=== PATIENT | female | born 1985 | race Caucasian/White ===

== ENCOUNTER → 2017-09-02 18:55 | Outpatient (CLI) | payer OTHER, SELFPAY ==
[2017-09-08 14:37] LABS: HPV APTIMA, High Risk Negative (Negative)
== END ==
PROVIDERS: Visit Provider Obstetrics & Gynecology
DX: Z01.419 Encounter for gynecological examination (general) (routine) without abnormal findings (principal); Z12.4 Encounter for screening for malignant neoplasm of cervix
CPT/HCPCS: 88175; G0145

== ENCOUNTER → 2017-09-08 10:40 | Outpatient (CLI) | payer OTHER, SELFPAY ==
[2017-09-08 14:32] LABS: Anion Gap 4 (5-15); BUN 11 mg/dL (7-18); BUN/Creat Ratio 14.9 RATIO (10-20); Calcium,Total 8.5 mg/dL (8.5-10.1); Chloride 107 mmol/L (98-107); Creatinine, Serum 0.74 mg/dL (0.55-1.02); EST Glomerular Filtration Rate 97 mL/min (>60); Est Glom Filt Rate - Afr Amer 118 mL/min (>60); Glucose 83 mg/dL (74-106); Potassium 3.9 mmol/L (3.5-5.1); Sodium Level 138 mmol/L (136-145)
[2017-09-08 14:36] LABS: Hemoglobin A1c 5.6 % (4.2-6.3)
== END ==
PROVIDERS: Visit Provider Obstetrics & Gynecology
DX: I10 Essential (primary) hypertension (principal); Z68.32 Body mass index [BMI] 32.0-32.9, adult
CPT/HCPCS: 36415; 80048; 83036; 84443

== ENCOUNTER → 2017-10-27 11:28 | Outpatient (CLI) | payer OTHER, SELFPAY ==
[2017-10-27 12:43] LABS: Absolute Lymphocyte Count 2.79 X10^3/ul (0.83-4.51); Absolute Neutrophil Count 6.4 X10^3/uL (2.0-7.7); Basophil# 0.01 X10^3/uL; Basophil% 0.1 % (0-1); Eosinophil# 0.12 X10^3/uL; Eosinophils% 1.2 % (0-5); Hematocrit 35.9 % (37-47); Hemoglobin 10.8 g/dl (12.0-15.0); Lymphocyte # 2.79 X10^3/ul (4.0); Lymphocyte % 28.2 % (19-41); Mean Corp Hgb Conc 30.1 g/gl (32-36); Mean Corpuscular Hgb 22.6 pg (27.0-32.0); Mean Corpuscular Volume 75.3 fL (81-99); Mean Platelet Vol. 10.9 fl (6.2-12.0); Monocyte% 6.1 % (0-10); Neutrophil # 6.37 X10^3/uL (2.7-7.7); Neutrophil % 64.3 % (47-70); Platelet Count 373 K/mm3 (150-450); RBC Distribution Width SD 41.1 fl (35.1-43.9); Red Blood Count 4.77 M/mm3 (4.2-5.4); White Blood Count 9.9 K/mm3 (4.4-11.0)
[2017-10-27 13:02] LABS: AST(SGOT) 13 U/L (15-37); Alanine Aminotransfer ALT/SGPT 17 U/L (13-56); Albumin, Serum 3.8 g/dL (3.2-5.0); Alkaline Phosphatase 80 U/L (45-117); Globulin 4.1 g/dL (2.2-4.2); Protein, Total 7.9 g/dL (6.4-8.2)
[2017-10-27 13:16] LABS: POSITIVE COUNT NO; POSITIVE DIFFERENTIAL NO; POSITIVE MORPHOLOGY NO
== END ==
PROVIDERS: Visit Provider Psychiatry & Neurology Neurology
DX: G40.901 Epilepsy, unspecified, not intractable, with status epilepticus (principal)
CPT/HCPCS: 36415; 80076; 85025

== ENCOUNTER → 2019-11-04 07:13 | Outpatient (CLI) | payer BC, SELFPAY ==
[2019-11-04 08:06] LABS: Absolute Lymphocyte Count 2.18 X10^3/uL (0.83-4.51); Absolute Neutrophil Count 3.3 X10^3/uL (2.0-7.7); Basophil# 0.05 X10^3/uL; Basophil% 0.8 % (0-1); Eosinophil# 0.11 X10^3/uL; Eosinophils% 1.8 % (0-5); Hematocrit 36.4 % (37-47); Hemoglobin 10.3 g/dL (12.0-15.0); Lymphocyte # 2.18 X10^3/ul (4.0); Lymphocyte % 35.3 % (19-41); Mean Corp Hgb Conc 28.3 g/dL (32-36); Mean Corpuscular Hgb 21.5 pg (27.0-32.0); Mean Platelet Vol. 11.8 fl (6.2-12.0); Monocyte# 0.52 X10^3/uL; Monocyte% 8.4 % (0-10); NRBC Flagged by Analyzer 0 % (0-5); Neutrophil % 53.4 % (47-70); Platelet Count 388 K/mm3 (150-450); RBC Distribution Width SD 43.8 fl (35.1-43.9); Red Blood Count 4.79 M/mm3 (4.2-5.4); White Blood Count 6.2 K/mm3 (4.4-11.0)
[2019-11-04 08:44] LABS: AST(SGOT) 16 U/L (15-37); Alanine Aminotransfer ALT/SGPT 22 U/L (13-56); Albumin, Serum 3.5 g/dL (3.2-5.0); Alkaline Phosphatase 79 U/L (45-117); Globulin 4.3 g/dL (2.2-4.2); Iron 15 ug/dL (50-170); Iron Binding Capacity,Total 478 ug/dL (250-450); Protein, Total 7.8 g/dL (6.4-8.2)
== END ==
PROVIDERS: Referring Provider Psychiatry & Neurology Neurology; Visit Provider Psychiatry & Neurology Neurology
DX: D64.9 Anemia, unspecified (principal); G40.901 Epilepsy, unspecified, not intractable, with status epilepticus; G40.909 Epilepsy, unspecified, not intractable, without status epilepticus; Z68.34 Body mass index [BMI] 34.0-34.9, adult
CPT/HCPCS: 36415; 80076; 83540; 83550; 85025

== ENCOUNTER → 2020-09-19 15:28 | Outpatient (CLI) | payer SELFPAY ==
[2020-09-22 04:09] LABS: Chlamydia By Nucleic Acid AMP Negative (Negative)
[2020-09-22 05:09] LABS: Gonococcus By Nucleic Acid AMP Negative (Negative)
[2020-09-25 20:57] LABS: HPV APTIMA, High Risk Negative (Negative)
== END ==
PROVIDERS: Visit Provider Obstetrics & Gynecology
DX: Z12.4 Encounter for screening for malignant neoplasm of cervix (principal); Z11.3 Encounter for screening for infections with a predominantly sexual mode of transmission
CPT/HCPCS: 87491; 87591; 87624; 88175; G0145

== ENCOUNTER → 2020-10-03 16:55 | Outpatient (CLI) | payer OTHER, SELFPAY ==
[2020-10-03 17:34] LABS: Absolute Lymphocyte Count 2.98 X10^3/uL (0.83-4.51); Absolute Neutrophil Count 7.7 X10^3/uL (2.0-7.7); Basophil# 0.05 X10^3/uL; Basophil% 0.4 % (0-1); Eosinophil# 0.08 X10^3/uL; Eosinophils% 0.7 % (0-5); Hematocrit 39.1 % (37-47); Hemoglobin 11.6 g/dL (12.0-15.0); Lymphocyte # 2.98 X10^3/ul (4.0); Lymphocyte % 25.4 % (19-41); Mean Corp Hgb Conc 29.7 g/dL (32-36); Mean Corpuscular Hgb 23.2 pg (27.0-32.0); Mean Platelet Vol. 12.1 fl (6.2-12.0); Monocyte# 0.87 X10^3/uL; Monocyte% 7.4 % (0-10); NRBC Flagged by Analyzer 0 % (0-5); Neutrophil # 7.72 X10^3/uL (2.7-7.7); Neutrophil % 65.8 % (47-70); Platelet Count 375 K/mm3 (150-450); RBC Distribution Width SD 42.4 fl (35.1-43.9); Red Blood Count 5.01 M/mm3 (4.2-5.4); White Blood Count 11.7 K/mm3 (4.4-11.0)
[2020-10-03 17:46] LABS: Protein, Urine (Random) 18.3 mg/dL (<11.9); Protein:Creat Ratio 65 mg/g CRE (0-200)
[2020-10-03 18:31] LABS: ALB/GLOB Ratio 0.7 RATIO (0.9-2.4); AST(SGOT) 8 U/L (15-37); Alanine Aminotransfer ALT/SGPT 19 U/L (13-56); Albumin, Serum 3.5 g/dL (3.2-5.0); Alkaline Phosphatase 74 U/L (45-117); Anion Gap 4 (5-15); BUN 10 mg/dL (7-18); BUN/Creat Ratio 13.3 RATIO (10-20); Calcium,Total 9.1 mg/dL (8.5-10.1); Chloride 104 mmol/L (98-107); Creatinine, Serum 0.75 mg/dL (0.55-1.02); EST Glomerular Filtration Rate 93 mL/min (>60); Est Glom Filt Rate - Afr Amer 113 mL/min (>60); Globulin 4.7 g/dL (2.2-4.2); Glucose 87 mg/dL (74-106); LDH 171 U/L (84-246); Potassium 3.8 mmol/L (3.5-5.1); Protein, Total 8.2 g/dL (6.4-8.2); Sodium Level 134 mmol/L (136-145)
[2020-10-04 08:50] LABS: HIV - WCH Non-Reactive (Nonreactive); Hepatitis B Surface Antigen Non-Reactive (Nonreactive); Hepatitis C Antibody Non-Reactive (Nonreactive); Rubella IgG Reactive (Nonreactive); Syphilis Antibodies Non-reactive
[2020-10-06 21:05] LABS: Lamotrigine (Lamictal) Level < 1.0 ug/mL (2.0-20.0)
== END ==
LOC: WOBLAB 17:01
PROVIDERS: Visit Provider Obstetrics & Gynecology
DX: Z34.81 Encounter for supervision of other normal pregnancy, first trimester (principal)
CPT/HCPCS: 36415; 80053; 82542; 82570; 83615; 84156; 85025; 86703; 86762; 86780; 86803; 87086; 87088; 87340

== ENCOUNTER → 2021-01-25 15:13 | Outpatient (CLI) | payer OTHER, SELFPAY ==
[2021-01-25 17:22] LABS: Mean Corp Hgb Conc 31.3 g/dL (32-36); Mean Corpuscular Hgb 24.5 pg (27.0-32.0); Mean Corpuscular Volume 78.4 fL (81-99); Mean Platelet Vol. 12.8 fl (6.2-12.0); Platelet Count 289 K/mm3 (150-450); RBC Distribution Width CV 14.8 % (11.6-14.6); RBC Distribution Width SD 42.2 fl (35.1-43.9); Red Blood Count 4.08 M/mm3 (4.2-5.4); White Blood Count 11.2 K/mm3 (4.4-11.0)
[2021-01-25 17:40] LABS: Glucose Challenge Gest 1H 50g 91 mg/dL (70-140)
== END ==
LOC: WOBLAB 15:14
PROVIDERS: Visit Provider Obstetrics & Gynecology
DX: Z34.82 Encounter for supervision of other normal pregnancy, second trimester (principal)
CPT/HCPCS: 36415; 82950; 85027

== ENCOUNTER → 2021-02-16 14:05 | Outpatient (CLI) | payer OTHER, SELFPAY ==
[2021-02-16 14:09] LABS: Bacteria 0 SEEN /hpf (None Seen); Mucous, Urine 0 SEEN /hpf (<or=2+); Red Blood Cells-Urine 0 SEEN /hpf (0-5)
[2021-02-16 14:53] LABS: Hematocrit 35.3 % (37-47); Hemoglobin 11.2 g/dL (12.0-15.0); Mean Corp Hgb Conc 31.7 g/dL (32-36); Mean Corpuscular Hgb 24.9 pg (27.0-32.0); Mean Corpuscular Volume 78.6 fL (81-99); Mean Platelet Vol. 12.6 fl (6.2-12.0); Platelet Count 252 K/mm3 (150-450); RBC Distribution Width CV 16.1 % (11.6-14.6); RBC Distribution Width SD 44.5 fl (35.1-43.9); Red Blood Count 4.49 M/mm3 (4.2-5.4); White Blood Count 10.9 K/mm3 (4.4-11.0)
[2021-02-16 15:02] LABS: Color, Urine Yellow (Yellow); Glucose, Dipstick Normal (Normal); Ketone-Dipstick 5 mg/dl (Negative); Leukocyte Esterase-Dipstick 25 /ul (Negative); Nitrite-Dipstick Negative (Negative); Occult Blood-Urine Negative /ul (Negative); Protein, Urine (Random) 10.1 mg/dL (<11.9); Protein-Dipstick Negative (Negative); Protein:Creat Ratio 227 mg/g CRE (0-200); Urine Bilirubin Dipstick Negative (Negative); Urine Clarity Sl. Cloudy (Clear); Urine Urobilinogen Normal (Normal)
[2021-02-16 15:13] LABS: BUN 8 mg/dL (7-18); Creatinine, Serum 0.68 mg/dL (0.55-1.02); EST Glomerular Filtration Rate 105 mL/min (>60); Glucose 115 mg/dL (74-106)
[2021-02-16 15:14] LABS: ALB/GLOB Ratio 0.6 RATIO (0.9-2.4); AST(SGOT) 19 U/L (15-37); Alanine Aminotransfer ALT/SGPT 24 U/L (13-56); Albumin, Serum 2.6 g/dL (3.2-5.0); Alkaline Phosphatase 141 U/L (45-117); Anion Gap 7 (5-15); BUN/Creat Ratio 11.8 RATIO (10-20); Calcium,Total 8.7 mg/dL (8.5-10.1); Chloride 104 mmol/L (98-107); Est Glom Filt Rate - Afr Amer 127 mL/min (>60); Globulin 4.7 g/dL (2.2-4.2); LDH 174 U/L (84-246); Potassium 3.5 mmol/L (3.5-5.1); Protein, Total 7.3 g/dL (6.4-8.2); Sodium Level 136 mmol/L (136-145)
[2021-02-16 15:15] LABS: Amorphous Sediment 1+ PHOS; Squamous Epithelial Cells - UA 0-5 SEEN /hpf (5-10); White Blood Cells 0-5 SEEN /hpf (0-5)
[2021-02-19 20:30] LABS: Lamotrigine (Lamictal) Level < 1.0 ug/mL (2.0-20.0)
== END ==
LOC: WOBLAB 14:06
PROVIDERS: Visit Provider Obstetrics & Gynecology
DX: G40.909 Epilepsy, unspecified, not intractable, without status epilepticus (principal); I10 Essential (primary) hypertension
CPT/HCPCS: 36415; 80053; 81001; 82542; 82570; 83615; 84156; 85027

== ENCOUNTER → 2021-03-06 14:50 | Outpatient (CLI) | payer OTHER, SELFPAY ==
[2021-03-10 14:27] LABS: Lamotrigine (Lamictal) Level 2.3 ug/mL (2.0-20.0)
== END ==
PROVIDERS: Referring Provider Psychiatry & Neurology Neurology; Visit Provider Psychiatry & Neurology Neurology
DX: G40.909 Epilepsy, unspecified, not intractable, without status epilepticus (principal)
CPT/HCPCS: 36415; 82542

== ENCOUNTER 2021-03-16 14:15 | Outpatient (CLI) | payer OTHER, SELFPAY ==
[2021-03-16] VITALS (37 sets, daily range): BP systolic 146–187; BP diastolic 86–108; PULSE 63–82; RESP 16–20; TEMP 36.3–36.8; O2SAT 97–100; BMI 36.0
[2021-03-16 15:21] LABS: Bacteria 0 SEEN /hpf (None Seen); Mucous, Urine 0 SEEN /hpf (<or=2+); Red Blood Cells-Urine 0 SEEN /hpf (0-5)
[2021-03-16 15:24] LABS: Hematocrit 36.1 % (37-47); Hemoglobin 11.4 g/dL (12.0-15.0); Mean Corp Hgb Conc 31.6 g/dL (32-36); Mean Corpuscular Hgb 26.3 pg (27.0-32.0); Mean Corpuscular Volume 83.4 fL (81-99); Mean Platelet Vol. 12.9 fl (6.2-12.0); POSITIVE MORPHOLOGY YES; Platelet Count 215 K/mm3 (150-450); RBC Distribution Width CV 17.7 % (11.6-14.6); Red Blood Count 4.33 M/mm3 (4.2-5.4); White Blood Count 12.3 K/mm3 (4.4-11.0)
[2021-03-16 15:25] LABS: Color, Urine Straw (Yellow); Glucose, Dipstick Normal (Normal); Ketone-Dipstick Negative (Negative); Leukocyte Esterase-Dipstick 25 /ul (Negative); Nitrite-Dipstick Negative (Negative); Occult Blood-Urine Negative /ul (Negative); Protein-Dipstick Negative (Negative); Urine Bilirubin Dipstick Negative (Negative); Urine Clarity Clear (Clear); Urine Urobilinogen Normal (Normal); Urine pH 6.5 (5.0 - 8.0)
[2021-03-16 15:32] LABS: Squamous Epithelial Cells - UA 0-5 SEEN /hpf (5-10); White Blood Cells 0-5 SEEN /hpf (0-5)
[2021-03-16 15:36] LABS: AST(SGOT) 20 U/L (15-37); Alanine Aminotransfer ALT/SGPT 25 U/L (13-56); Creatinine, Serum 0.71 mg/dL (0.55-1.02); EST Glomerular Filtration Rate 100 mL/min (>60); Est Glom Filt Rate - Afr Amer 121 mL/min (>60); Estimated Creatinine Clearance 87.47 ml/min; Uric Acid 4.5 mg/dL (2.6-6.0)
[2021-03-16] MEDS: Magnesium Sulfate 4gm/100mL 4 GM/100 ML IV.SOLN. IV (15:40)
[2021-03-16] MEDS: Labetalol (Prefilled) 20 MG/4 ML IV (15:40)
[2021-03-16 15:46] LABS: Protein, Urine (Random) 7.7 mg/dL (<11.9); Protein:Creat Ratio 370 mg/g CRE (0-200)
[2021-03-16 15:49] LABS: Scan Indicated on CBC? Y/N YES- FLAGS NOTED
[2021-03-16] MEDS: Labetalol (Prefilled) 20 MG/4 ML 40 MG IV (16:06)
[2021-03-16] MEDS: Lactated Ringers 1,000 ML 15 ML IV (16:15)
[2021-03-16] MEDS: Magnesium Sulfate 20 GM/500 ML BAG IV (16:30)
[2021-03-16] MEDS: Labetalol 200 MG Tablet 400 MG PO (17:03)
[2021-03-16] MEDS: Betamethasone/Betamethasone 30 MG/5 ML Vial 12 MG IM (17:10)
--- NOTE | 2021-03-16 17:20 | HP.PCM.OB_ITS ---
History and Physical Date of Admission: 03/16/21 Chief complaint: Severe HARSH, IUGR History of present illness: 35-year-old G3, P1 at 32 weeks and 1 day with KATIE: 05/10/2021 by 6 wk u/s arrived to office with severe range blood pressures. Patient known poorly controlled chronic hypertensive on medication. Patient asymptomatic. Denies headache, visual changes, chest pain, shortness of breath, nausea vomiting, right upper quadrant pain. Patient states good movement. is complicated by poorly controlled chronic hypertension on medications, epilepsy, Covid + 01/10/2021, IUGR EFW 1403g 3rd percentile with cord Dopplers greater than the 95th percentile, AMA Obstetric history: G1: 34-week primary section severe HARSH male 09/2014 G2: SAB 05/30/2015 G3: Current Past medical history: Chronic hypertension, epilepsy Medications: Procardia 60 mg daily, labetalol 200 mg twice daily, aspirin, Lamictal Past surgical history: section, diagnostic laparoscopy Allergies: No known drug allergies Social history: Denies smoking, alcohol use, drug use Family history: Denies history DVT or PE Review of systems: Besides above pertinent positives a full review of systems was performed and found to be negative Physical exam: Vitals: Blood pressure 187/97 pulse 69 respiratory rate 16 SpO2 99% on room air General: Normal-appearing no acute distress HEENT: Normocephalic/atraumatic no cervical of adenopathy Cardiac/respiratory: Nonlabored breathing, no use of accessory muscles Abdomen: Soft, nontender, gravid negative right upper quadrant pain Extremities: No peripheral edema normal peripheral pulses. Negative clonus, DTRs +2 Psych: Normal affect normal demeanor nonpressured speech Labs: White blood cell count 12.3, hemoglobin 11.4 hematocrit 36.1% platelets 215. Creatinine 0.71. AST 20 ALT 25. Urine protein creatinine ratio 0.3 Assessment and plan: 35-year-old G3, P1 at 32 weeks and 1 day with severe HARSH/poorly controlled chronic hypertension. Arrived to labor and delivery, HELLP labs stable, patient asymptomatic. Magnesium 6 g bolus to run at 2 g an hour given. Labetalol 20 mg IV given, labetalol 40 mg IV given. Blood pressure stabilized after labetalol 40 mg IV, started on labetalol for 100 mg p.o. 3 times daily. We will continue to treat blood pressures as needed. Celestone 12 mg IM given. Patient also with office ultrasound today growth ultrasound, EFW 1403g 3% and cord Dopplers greater than the 95th percentile. Extended monitoring stable with no decelerations. Based on severe HARSH/poorly controlled chronic hypertension and IUGR with elevated cord Dopplers will need continuous monitoring and NICU. Reviewed case with Dr. [facility] who agreed to transport to [facility]. Transport team called, to transport within 30 minutes.
== END 2021-03-16 18:02 | disposition home or self-care (01) ==
LOC: WPOUT 14:24 → WP 14:24
PROVIDERS: Visit Provider Obstetrics & Gynecology
DX: O10.913 Unspecified pre-existing hypertension complicating pregnancy, third trimester (principal); O99.353 Diseases of the nervous system complicating pregnancy, third trimester; G40.909 Epilepsy, unspecified, not intractable, without status epilepticus; O36.5930 Maternal care for other known or suspected poor fetal growth, third trimester, not applicable or unspecified; Z3A.32 32 weeks gestation of pregnancy; Z86.16 Personal history of COVID-19
CPT/HCPCS: 96360; 36415; 59025; 59050; 81001; 82565; 82570; 84156; 84450; 84460; 84550; 85027; 96372; 99218; J7120; G0378; J0702

== ENCOUNTER 2023-04-06 18:25 | Emergency (ER) | payer OTHER, SELFPAY ==
[2023-04-06 18:26] VITALS: BP 151/90; PULSE 75; RESP 18; TEMP 35.7; O2SAT 100; BMI 32.8
--- NOTE | 2023-04-06 18:33 | RAD_ITS ---
EXAM: XR LEFT WRIST COMPLETE, 3 OR MORE VIEWS CLINICAL INDICATION: trauma TECHNIQUE: Frontal, lateral and oblique views of the left wrist. COMPARISON: No relevant prior studies available. FINDINGS: BONES/JOINTS: Unremarkable. No acute fracture. No subluxation. Normal alignment. Preservation of the joint space. No sclerotic or destructive changes observed. SOFT TISSUES: Unremarkable. No soft tissue swelling or gas. No radiopaque foreign body. RAD/Wrist min 3 Views IMPRESSION: Negative left wrist x-rays. Electronically Signed: Kael Abad MD at 19:06 EDT ,
--- NOTE | 2023-04-06 18:35 | EX.ED.UPPERE ---
HPI History of Present Illness Chief Complaint: Upper Extremity Injury Narrative Narrative: Patient fell at bowling landing on her left wrist. No head injury neck pain or any other injury. She is presenting with distal radius pain [facility] Medical History (Updated 04/06/23 @ 18:[address] Terrell Viera MD) Epilepsy Home Medications lamotrigine 150 mg tablet (Lamictal) 150 mg PO BID 03/16/21 [History Last Taken 03/16/21 04:30] Allergy/AdvReac Type Severity Reaction Status Date / Time No Known Allergies Allergy Verified 04/06/23 18:26 Social History Smoking Status: Never smoker ROS ROS ED ROS Narrative Musculoskeletal: Wrist pain Skin: No abrasions or lacerations Neurological: No weakness or paresthesias Hematologic: No easy bleeding or easy bruising EXAM Physical Exam Narrative Exam Narrative: Physical exam General: Patient does not appear in significant distress . Head: Normocephalic, Atraumatic Neck: No C-spine tenderness Cardiovascular: Normal distal pulses Back: Nontender, Normal Inspection. Extremities: Denies distal radius tenderness there is no deformity. Neurovascularly intact. No snuffbox tenderness or any other pain. Skin: No abrasions, no lacerations Neurological: Normal strength and sensation Const Vital Signs: 04/06/23 18:26 Temperature 96.2 F L Temperature Source Temporal Pulse Rate 75 Respiratory Rate 18 Blood Pressure 151/90 H Blood Pressure Mean 110 Pulse Ox 100 Oxygen Delivery Method Room Air MDM MDM MDM Narrative Medical decision making narrative: Wrist x-ray interpreted by me as normal. There is no evidence of fractures. Patient is relatively comfortable. I will give her a splint for comfort otherwise I will discharge in stable condition she can take NSAIDs [id number]. Discharge Plan Triage Chief Complaint: Upper Extremity Injury ED Provider: Terrell Viera Dx/Rx/DC Orders Clinical Impression: Contusion, wrist, Fall Instructions: ED Contusion, Upper Extremity Prescriptions: No Action lamotrigine [Lamictal] 150 mg Tablet 150 mg PO BID Primary Care Provider: Care Physician,No Primary Referrals: Care Physician,No Primary [Primary Care Provider] - 3-5 Days Disposition Disposition: Home, Self Care
== END 2023-04-06 18:57 | disposition home or self-care (01) ==
LOC: ED 18:52
PROVIDERS: Emergency Provider Emergency Medicine; Visit Provider Emergency Medicine
DX: S60.212A Contusion of left wrist, initial encounter (principal); G40.909 Epilepsy, unspecified, not intractable, without status epilepticus; W19.XXXA Unspecified fall, initial encounter; Y93.54 Activity, bowling; Z79.899 Other long term (current) drug therapy
CPT/HCPCS: 73110; 99283

== ENCOUNTER 2023-06-27 09:35 | Emergency (ER) | payer OTHER, SELFPAY ==
[2023-06-27 09:36] VITALS: BP 145/99; PULSE 81; RESP 16; TEMP 36.3; O2SAT 99; BMI 33.3
--- NOTE | 2023-06-27 10:06 | US_ITS ---
INDICATION: PAIN EXAMINATION: Ultrasound US Abdomen Limited (quadrant) TECHNIQUE: Hurley scale and color doppler imaging was performed of the right upper quadrant. COMPARISON: No relevant prior comparison study available FINDINGS: LIVER: There is normal echotexture. The liver is normal in size measuring about 16.2 cm in length. The portal vein is patent with normal hepatopedal flow. No focal hepatic lesion. There is no free fluid. GALLBLADDER AND BILIARY TREE: Contracted gallbladder without evidence of gallstones. Normal gallbladder wall measuring 2 mm. The proximal common bile duct measures 3 mm, which is within normal limits for the patient''s age. Sonographic Ambriz''s sign: Negative. PANCREAS: The pancreas is obscured by bowel gas and not visualized. RIGHT KIDNEY: The right kidney measures 11 cm in length. No evidence of hydronephrosis. US/Gallbladder IMPRESSION: No evidence of gallstones. Electronically Signed: Elver Flor MD at 11:41 EST ,
--- NOTE | 2023-06-27 10:11 | EX.ED.DYSGE1 ---
HPI History of Present Illness Chief Complaint: Nausea/Vomiting/Diarrhea Informant: patient Narrative Narrative: 37-year-old female presenting to the emergency department with vomiting diarrhea. Patient states that on Friday in the afternoon she developed an ache in the center of her chest that lasted 3 to 4 hours and then resolved. On morning (Friday) she had fever up to 102. She notes an associated cough and developed nausea and vomiting as well as diarrhea. Last episode of diarrhea was this morning. She states she does not look at her stool so she cannot describe it for me. Last episode of vomiting was yesterday morning. She notes persistent nausea. She also notes a right-sided abdominal ache. She tells me that everyone tells me is my gallbladder . Patient reports no primary care doctor. She states she has been on Lamictal for several years. Other than that she takes no medications. She is unsure of the doctor's name that prescribes her Lamictal. She denies any urinary symptoms. [facility] Medical History Epilepsy Home Medications lamotrigine 150 mg tablet (Lamictal) 150 mg PO BID 03/16/21 [History Last Taken 03/16/21 04:30] ondansetron 4 mg disintegrating tablet 4 mg PO Q6H PRN PRN Nausea #15 tabs 06/27/23 [Rx Last Taken Unknown] Allergy/AdvReac Type Severity Reaction Status Date / Time No Known Allergies Allergy Verified 06/27/23 09:36 Social History Smoking Status: Never smoker ROS ROS ED Constitutional Constitutional ED: Reports chills and fever(s); Denies weight loss Eyes Eyes: Denies change in vision or diplopia ENT ENT ED: Denies ear pain, rhinorrhea or sore throat Cardiovascular Cardiovascular: Denies chest pain, orthopnea, palpitations or racing heartbeat Respiratory/Chest Respiratory/Chest: Reports cough; Denies dyspnea or orthopnea Gastrointestinal Gastrointestinal: Reports abdominal pain, diarrhea, nausea and vomiting Genitourinary Genitourinary ED: Denies dysuria, hematuria or urinary frequency Musculoskeletal Musculoskeletal: Denies arthralgias or myalgias Integumentary Denies abscess or rash Neurologic Neurologic: Denies headache(s) or weakness Psychiatric Psychiatric: Denies anxiety, depression, suicidal ideation or suicidal thoughts Endocrine Endocrinology: Denies polydipsia, polyphagia or polyuria Allergic/Immunologic Allergic/Immunologic ED: Denies mouth swelling, tongue swelling or urticaria EXAM Physical Exam Const Vital Signs: 06/27/23 09:36 06/27/23 12:00 06/27/23 12:00 Temperature 97.3 F L Temperature Source Temporal Pulse Rate 81 74 74 Respiratory Rate 16 16 16 Blood Pressure 145/99 H 145/87 H 145/87 H Blood Pressure Mean 114 106 106 Pulse Ox 99 95 95 Oxygen Delivery Method Room Air Room Air Positive well nourished, well developed and obese General Appearance ED: well developed Nutritional Appearance: obese HEENT Reports normocephalic, head/scalp atraumatic and moist mucous membranes Eyes PERRL and EOMs intact bilaterally Neck no lymphadenopathy, supple and no JVD Resp normal respiratory effort and clear to auscultation bilaterally Cardio regular rate, regular rhythm and no murmurs GI Auscultation: normoactive bowel sounds Palpation: soft and tender RUQ; Negative for guarding or rebound tenderness present Back/Spine no CVA tenderness and normal ROM Extremity normal to inspection General Extremety ED: Negative for edema General Extremity: Negative for edema Neuro oriented x3 and CN's II-XII intact bilaterally Sensorium / Orientation: alert Motor Exam: strength 5/5 throughout Psych mental status grossly normal Mood & Affect: Negative for depressed or tearful Skin no rashes or lesions noted and no wounds MDM MDM MDM Narrative Medical decision making narrative: I attempted to perform a bedside ultrasound of the gallbladder. Patient unable to take a deep breath and I am unable to get a confident examination of the gallbladder with the bedside ultrasound. Basic blood work showed a hemoglobin 11.6 white count was 7. Normal liver enzymes. Lipase 22. test is negative. Urinalysis with no infection. Formal gallbladder ultrasound was negative. Clinically I think the patient is a viral gastroenteritis. Would recommend supportive care follow-up as needed return if worsening History & Record Review Discussion w/independent historian: Patient and Family Lab Data Attestation: I reviewed the patient's lab results. Labs: Laboratory Results - last 24 hr 06/27/23 06/27/23 10:20 11:29 WBC 7.0 RBC 4.81 Hgb 11.6 L Hct 36.8 L MCV 76.5 L MCH 24.1 L MCHC 31.5 L RDW Std Deviation 39.2 RDW Coeff of [place] 14.1 Plt Count 344 MPV 10.6 Immature Gran % (Auto) 0.100 Neut % (Auto) 61.4 Lymph % (Auto) 30.5 [place] % (Auto) 6.3 Eos % (Auto) 1.3 Baso % (Auto) 0.4 Absolute Neuts (auto) 4.3 Absolute Lymphs (auto) 2.14 Nucleated RBC % 0 Sodium 139 Potassium 3.5 Chloride 105 Carbon Dioxide 28.0 Anion Gap 6 BUN 7 Creatinine 0.76 Estim Creat Clear Calc 80.16 Est GFR (MDRD) Af Amer 109 Est GFR (MDRD) Non-Af 90 BUN/Creatinine Ratio 9.2 L Glucose 89 Calcium 8.6 Total Bilirubin 0.40 Direct Bilirubin 0.08 AST 15 ALT 19 Alkaline Phosphatase 80 Total Protein 8.5 H Albumin 3.8 Globulin 4.7 H Lipase 22 Serum , Qual NEGATIVE Urine Color Straw Urine Clarity Clear Urine pH 7.0 Ur Specific [place] 1.005 Urine Protein Negative Urine Glucose (UA) Normal Urine Ketones 15 H Urine Occult Blood Negative Urine Nitrite Negative Urine Bilirubin Negative Urine Urobilinogen Normal Ur Leukocyte Esterase 25 H Urine RBC 0 SEEN Urine WBC 0 SEEN Ur Squamous Epith Cells 0-5 SEEN Urine Bacteria 0 SEEN Urine Mucus 0 SEEN Radiography Diagnostic Testing: Clinical Impression(s) from Imaging Studies Gallbladder Ultrasound 06/27/23 10:06 IMPRESSION: No evidence of gallstones. Electronically Signed: Elver Flor MD at 11:41 EST , Discharge Plan Triage Chief Complaint: Nausea/Vomiting/Diarrhea ED Provider: Bennie Orta Dx/Rx/DC Orders Clinical Impression: Gastroenteritis, Abdominal pain Instructions: ED Gastroenteritis, Viral (Adult) Prescriptions: New ondansetron [ondansetron] 4 mg tablet,disintegrating 4 mg PO Q6H PRN PRN (Reason: Nausea) Qty: 15 0RF No Action lamotrigine [Lamictal] 150 mg Tablet 150 mg PO BID Primary Care Provider: Care Physician,No Primary Referrals: Care Physician,No Primary [Primary Care Provider] - Disposition Disposition: Home, Self Care Discharge Date/Time: 06/27/23 12:38
[2023-06-27 10:31] LABS: Absolute Lymphocyte Count 2.14 X10^3/uL (0.83-4.51); Absolute Neutrophil Count 4.3 X10^3/uL (2.0-7.7); Basophil# 0.03 X10^3/uL; Basophil% 0.4 % (0-1); Eosinophil# 0.09 X10^3/uL; Eosinophils% 1.3 % (0-5); Hematocrit 36.8 % (37-47); Hemoglobin 11.6 g/dL (12.0-15.0); Lymphocyte # 2.14 X10^3/ul (0.83-4.51); Lymphocyte % 30.5 % (19-41); Mean Corp Hgb Conc 31.5 g/dL (32-36); Mean Corpuscular Hgb 24.1 pg (27.0-32.0); Mean Corpuscular Volume 76.5 fL (81-99); Mean Platelet Vol. 10.6 fl (6.2-12.0); Monocyte# 0.44 X10^3/uL; Monocyte% 6.3 % (0-10); NRBC Flagged by Analyzer 0 % (0-5); Neutrophil % 61.4 % (47-70); Platelet Count 344 K/mm3 (150-450); RBC Distribution Width CV 14.1 % (11.6-14.6); RBC Distribution Width SD 39.2 fl (35.1-43.9); Red Blood Count 4.81 M/mm3 (4.2-5.4)
[2023-06-27] MEDS: 0.9% Normal Saline (1000mL) 1,000 ML 1000 ML IV (10:33)
[2023-06-27] MEDS: Ondansetron 4 MG/2 ML Vial IV (10:33)
[2023-06-27 10:34] LABS: Internal QC Validated? YES +Cl - CLEAR BKGD; Pregnancy, Serum, hCG Quali. NEGATIVE Negative; Record Kit Lot#, Serum Preg. HCG0000667200
--- OUTSIDE RECORDS SUMMARY | 2023-06-27 10:39 | XMS RPT_ITS | CCD ---
Author Name Unknown Address [address] [place] [address] Organization [facility] Care Team Providers Care Chief Wellness Officer Name Role Phone Unavailable Primary Care Provider Unavailabl e DARCIE ROBERTS Referring Unavailable Unavailable Primary Care Provider Unavailabl e Medications Current Medications Medication Drug Class(es) Dates Sig (Normalized) Sig (Original) acetaminophen 500 mg oral tablet (6 sources) Start: 04-01-2021 take 2 tablets by mouth three times daily as needed for pain acetaminophen (TYLENOL) 500 MG tablet Take 2 tablets by mouth 3 times daily as needed for Pain 60 tablet 1 04/01/2021 Active Completed/Discontinued Medications Medication Drug Class(es) Dates Sig (Normalized) Sig (Original) aspirin 81 mg chewable tablet (2 sources) Platelet Aggregation Inhibitor, Nonsteroidal Anti-inflammatory Drug Start: 03-16-2021 End: 03-29-2021 take 81 mg by mouth once daily 81 mg, Oral, DAILY, First dose on Fri03/16/21 at 2100 betamethasone 3 mg/ml / betamethasone acetate 3 mg/ml injectable suspension (2 sources) Corticosteroid Start: 03-27-2021 End: 03-28-2021 betamethasone acetate-betamethas one sodium phosphate (CELESTONE) injection 12 mg Problems Problem Classification Problem Date Documented Da te Episodic/Chronic Epilepsy; convulsions (1 source) Seizure disorder; Translations: [Epilepsy, unspecified, not intractable, without status epilepticus] Onset: 10-23-2010 10-23-2010 Chronic Hypertension complicating ; childbirth and the puerperium (2 sources) Pre-eclampsia added to pre-existing hypertension; Translations: [Pre-existing hypertension with pre-eclampsia, unspecified trimester] Onset: 03-16-2021 Chronic Other complications of ; puerperium affecting management of mother (2 sources) delivery - delivered; Translations: [Encounter for delivery without indication] Onset: 03-30-2021 Episodic Other injuries and conditions due to external causes (1 source) Unspecified injury of left wrist, hand and finger(s), initial encounter; Translations: [Injury of left hand, initial encounter] Onset: 11-26-2022 Episodic Other injuries and conditions due to external causes (1 source) Injury of left hand; Translations: [Unspecified injury of left wrist, hand and finger(s), initial encounter] Episodic Results Test Name Value Interpretation Reference Range Facil ity Vital Signs Date Time Vital Sign Value Performing Clinician Facility 11-26-2022 10:11-0400 Body temperature 97.81 [degF] Darcie Roberts ASSEMBLER SEMICONDUCTOR.NETWORK INTELLIGENCE ANALYST Work Phone: [facility] 11-26-2022 10:11-0400 Body weight 76.2 kg Darcie Roberts ASSEMBLER SEMICONDUCTOR.NETWORK INTELLIGENCE ANALYST Work Phone: [facility] 11-26-2022 10:11-0400 Diastolic blood pressure 82 mm[Hg] Darcie Roberts ASSEMBLER SEMICONDUCTOR.NETWORK INTELLIGENCE ANALYST Work Phone: [facility] 11-26-2022 10:11-0400 Heart rate 80 /min Darcie Roberts ASSEMBLER SEMICONDUCTOR.NETWORK INTELLIGENCE ANALYST Work Phone: [facility] 11-26-2022 10:11-0400 Respiratory rate 16 /min Darcie Roberts ASSEMBLER SEMICONDUCTOR.NETWORK INTELLIGENCE ANALYST Work Phone: [facility] 11-26-2022 10:11-0400 SaO2% (BldA) [Mass fraction] 98 % Darcie Roberts ASSEMBLER SEMICONDUCTOR.NETWORK INTELLIGENCE ANALYST Work Phone: [facility] 11-26-2022 10:11-0400 Systolic blood pressure 126 mm[Hg] Darcie Roberts ASSEMBLER SEMICONDUCTOR.NETWORK INTELLIGENCE ANALYST Work Phone: [facility] 04-01-2021 16:00-0400 Body temperature 98.29 [degF] Licha Samson MD Work Phone: [facility] Work Phone: 04-01-2021 16:00-0400 Diastolic blood pressure 87 mm[Hg] Licha Samson MD Work Phone: [facility] Work Phone: 04-01-2021 16:00-0400 Heart rate 78 /min Licha Samson MD Work Phone: [facility] Work Phone: 04-01-2021 16:00-0400 Respiratory rate 16 /min Licha Samson MD Work Phone: [facility] Work Phone: 04-01-2021 16:00-0400 SaO2% (BldA) [Mass fraction] 98 % Licha Samson MD Work Phone: [facility] Work Phone: 04-01-2021 16:00-0400 Systolic blood pressure 148 mm[Hg] Licha Samson MD Work Phone: [facility] Work Phone: 03-19-2021 12:20-0400 Body mass index (BMI) [Ratio] 34.84 kg/m2 Licha Samson MD Work Phone: [facility] Work Phone: 03-19-2021 12:20-0400 Body weight 86.41 kg Licha Samson MD Work Phone: [facility] Work Phone: 03-19-2021 10:01-0400 Body height 157.5 cm Licha Samson MD Work Phone: [facility] Work Phone: Encounters Encounter Date Encounter Type Care Provider Facility Start: 11-26-2022 End: 11-26-2022 ambulatory [facility] Facility:[facility] Start: 11-26-2022 End: 11-26-2022 Office outpatient visit 15 minutes Darcie Roberts ASSEMBLER SEMICONDUCTOR.NETWORK INTELLIGENCE ANALYST Work Phone: [facility] Procedures Date Procedure Procedure Detail Performing Clinician Start: 03-30-2021 Blood count hemoglobin Norman Duvall DO Work Phone: Start: 03-29-2021 Comprehensive metabo lic panel Joana Leila Gilliam DO Work Phone: Start: 03-29-2021 nonstress test Harris antonietta Mi DO Work Phone: Start: 03-28-2021 Antibody screen Licha llamas MD Work Phone: Start: 03-28-2021 Blood typing serologic abo Joana Dee Lamari DO Work Phone: Start: 03-28-2021 Comprehensive metabo lic panel Joana Leila Gilliam DO Work Phone: Start: 03-27-2021 RADIOLOGY REPORT 3m Sca nning Start: 03-27-2021 End: 03-27-2021 biophysical profile w/o non-stress testing Veedanie Mi DO Work Phone: Start: 03-25-2021 Antibody screen Licha llamas MD Work Phone: Start: 03-25-2021 Blood typing serologic abo Vee Dee Taiwomartínla DO Work Phone: Start: 03-25-2021 Comprehensive metabo lic panel Vee Linkla DO Work Phone: Start: 03-23-2021 Comprehensive metabo lic panel Millie Bailey MD Work Phone: Start: 03-22-2021 Antibody screen Licha llamas MD Work Phone: Start: 03-22-2021 Blood typing serologic abo Joana Gusmanmike DO Work Phone: Start: 03-20-2021 Ecg routine ecg w/le ast 12 lds w/i&r Vee Mi DO Work Phone: Start: 03-19-2021 Comprehensive metabo lic panel Joanasaad Gusmanmike DO Work Phone: Start: 03-19-2021 Us preg uterus real time f/u trnsabdl per fetus Kush Louise DO Work Phone: Start: 03-19-2021 Antibody screen Licha llamas MD Work Phone: Start: 03-19-2021 Blood typing serologic abo Joana Gusmanmike DO Work Phone: Start: 03-17-2021 ADD ON LAB TEST Maryam Bhandari MD Work Phone: Start: 03-17-2021 Comprehensive metabo lic panel Maryam Bhandari MD Work Phone: Start: 03-16-2021 Culture bacterial quanttative colony count urine Maryam Bhandari MD Work Phone: Start: 03-16-2021 MISCELLANEOUS SENDOUT 1 Maryam Bhandari MD Work Phone: Start: 03-16-2021 Antibody screen Licha llamas MD Work Phone: Start: 03-16-2021 Blood typing serologic abo Maryam Bhandari MD Work Phone: Start: 10-03-2020 ABO, EXTERNAL RESULT Ne juan Meadows MD Start: 10-03-2020 HEPATITIS B, EXTERNA L RESULT Historical Provider Start: 10-03-2020 HEPATITIS C ANTIBODY , EXTERNAL RESULT Historical Provider Start: 10-03-2020 HIV, EXTERNAL RESULT Ne juan Meadows MD Start: 10-03-2020 RH FACTOR, EXTERNAL RESULT Historical Provider Start: 10-03-2020 RPR, EXTERNAL RESULT Hi juan Meadows MD Start: 10-03-2020 RUBELLA TITER, EXTER NAL RESULT Historical Provider Start: 09-19-2020 C. TRACHOMATIS, EXTE RNAL RESULT Historical Provider Start: 09-19-2020 N. GONORRHOEAE, EXTE RNAL RESULT Historical Provider Plan of Treatment Date Care Activity Detail Author Start: 03-23-2031 DTaP/Tdap/Td vaccine (2 - Td or Tdap) DTaP/Tdap/Td vaccine (2 - Td or Tdap) [facility] Work Phone: Start: 02-28-2023 Influenza vaccination INFLUENZA (Season Ended) [facility] Start: 06-30-2022 DEPRESSION ASSESSMENT DEPRESSION ASSESSMENT [facility] Start: 03-29-2022 Creatinine measurement Creatinine monitoring [facility] Work Phone: Start: 03-29-2022 Potassium monitoring Potassium monitoring [facility] Work Phone: Start: 02-28-2021 Influenza vaccination Flu vaccine (#1) [facility] Work Phone: Start: 09-11-2015 HPV TESTING HPV TESTING [facility] Start: 09-11-2015 Screening for malignant neoplasm of cervix [facility] Work Phone: Start: 2006 PAP TESTING PAP TESTING [facility] Start: 2006 Screening for malignant neoplasm of cervix Pap smear [facility] Work Phone: Start: 2004 Urine microalbumin profile DTAP,TDAP,TD (1 - Tdap) [facility] Start: 09-11-2003 HEPATITIS C SCREENING HEPATITIS C SCREENING [facility] Start: 09-11-2003 HIV SCREENING HIV SCREENING [facility] Start: 2000 HIV screening HIV screen [facility] Work Phone: Start: 1997 COVID-19 Vaccine (1) COVID-19 Vaccine (1) [facility] Work Phone: Start: 1986 Varicella vaccine (1 of 2 - 2-dose childhood series) Varicella vaccine (1 of 2 - 2-dose childhood series) [facility] Work Phone: Start: 03-13-1986 COVID-19 VACCINE (#1) COVID-19 VACCINE (#1) [facility] Start: 1985 HEPATITIS B (1 of 3 - 3-dose series) HEPATITIS B (1 of 3 - 3-dose series) [facility] Start: 1985 Hepatitis C screening Hepatitis C screen [facility] Work Phone: Oxygen therapy [[facility] [place] Set] Initiate Oxygen Therapy Protocol Respiratory Care Routine Daily until discontinued starting 03/29/2021 [facility] Work Phone: Immunizations Immunization Date Immunization Notes Care Provider Fa cility 03-23-2021 tetanus toxoid, reduced diphtheria toxoid, and acellular pertussis vaccine, adsorbed Licha Samson MD Work Phone: [facility] Work Phone: NEGATED: Highlighted row has not occurred!04-01-2021 measles, mumps and rubella virus vaccine Licha Samson MD Work Phone: [facility] Work Phone: NEGATED: Highlighted row has not occurred!04-01-2021 tetanus toxoid, reduced diphtheria toxoid, and acellular pertussis vaccine, adsorbed Licha Samson MD Work Phone: [facility] Work Phone: Payers Date Payer Category Payer Unknown [id number] 2022 Unknown HOSPITAL/MEDICAL GENERIC MEDICAL GENERIC [id number] 2022-Present [id number] [place] [address] Indemnity [id number] Social History Date Type Detail Facility Start: 10-23-2010 End: 03-29-2021 Tobacco smoking status NHIS Never smoker [facility] Work Phone: Start: 10-23-2010 End: 03-29-2021 Tobacco use and exposure Never used [facility] Start: 03-29-2021 Alcohol intake Lifetime non-d luis (finding) [facility] Work Phone: Start: 03-16-2021 History SDOH Alcohol Frequency 1 [facility] Work Phone: Start: 1985 Sex Assigned At Not on file S [facility] Work Phone: Exposure to SARS-CoV -2 (event) Not sure [facility] Start: 11-26-2022 Alcohol intake Current non-dr dinker of alcohol (finding) [facility] Progress note 11-26-2022 Note Date & Type Note Facility 11-26-2022 Note HNO ID: [id number] Author: Trina Mckoy RT(R) Service: Nuclear Medicine Author Type: Technologist Type: Progress Notes Filed: 11/26/2022 11:03 AM Note Text: Radiology Service Progress Note PATIENT NAME: Armando Rosario DATE OF SERVICE: November 26, 2022 TIME: 10:57 AM PATIENT IDENTITY VERIFICATION COMPLETED USING TWO (2) IDENTIFIERS: Name and Date of confirmed by patient verbally. FALL SCREENING: Has the patient had 2 falls in the last year or 1 fall with injury or currently using an Ambulatory Assistive Device (Walker, Cane, Wheelchair, Crutches, etc.)? No PATIENT GENDER DATA: Female. status: : No status: NO. PATIENT RELEVANT IMPLANT DATA REVIEWED: Not Applicable RADIOLOGY DEPARTMENT: General X-ray: Exam(s) Completed: Upper Extremity X-Ray(s): Hand, left PERIPHERAL IV DATA: Not applicable SIGNED BY: RT Jesenia(R) November 26, 2022 10:57 AM [facility] Progress note 11-26-2022 Note Date & Type Note Facility 11-26-2022 Note HNO ID: [id number] Author: Darcie Roberts APRN.NETWORK INTELLIGENCE ANALYST Service: ? Author Type: Nurse Practitioner Type: Progress Notes Filed: 11/26/2022 11:18 AM Note Text: Subjective HPI Nontoxic-appearing female presents urgent care chief plaint left hand pain. Duration of symptoms 2 days. Associated symptoms left hand pain and swelling some bruising. Does not recall a specific injury. 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 States she woke up 2 days ago and noticed some swelling and pain in her hand. Denies any specific injury. No numbness no tingling no decreased sensation no fractures or surgeries to the past. Denies any chance of . Is not breast-feeding. Past medical history prescription medication use allergies reviewed. .Patient presents with: Hand Pain: left x 2 days, swollen PAST MEDICAL HISTORY Diagnosis Date Epilepsy (HCC) Heart murmur PAST SURGICAL HISTORY Procedure Laterality Date NONE ALLERGIES Patient has no known allergies. MEDICATIONS LEVETIRACETAM (KEPPRA ORAL) Take 600 mg by mouth twice daily. OXCARBAZEPINE (TRILEPTAL ORAL) Take 1,000 mg by mouth twice daily. naproxen 500 mg ORAL tablet Take 1 tablet by mouth twice daily as needed. FOR PAIN. TAKE WITH FOOD. FAMILY HISTORY Problem Relation Age of Onset Diabetes Father Hypertension Mother Hypertension Father Hypertension Maternal Grandmother Hypertension Maternal Grandfather Diabetes Maternal Grandfather Cancer Maternal Grandfather of pancreatic cancer Diabetes Paternal Grandmother Social History Tobacco Use Smoking status: Never Smokeless tobacco: Never Substance Use Topics Alcohol use: No Drug use: No BP 126/82 Pulse 80 Temp 36.6 ?C (97.8 ?F) Resp 16 Wt 76.2 kg (168 lb) SpO2 98% Review of Systems Constitutional: Negative for chills, fever and malaise/fatigue. HENT: Negative for congestion, ear discharge, ear pain, sinus pain and sore throat. Eyes: Negative for blurred vision, pain, discharge and redness. Respiratory: Negative for cough, hemoptysis, sputum production, shortness of breath, wheezing and stridor. Cardiovascular: Negative for chest pain. Gastrointestinal: Negative for abdominal pain, diarrhea, nausea and vomiting. Musculoskeletal: Positive for joint pain. Negative for myalgias. Skin: Negative for itching and rash. Neurological: Negative for dizziness and headaches. Objective Physical Exam Constitutional: General: She is not in acute distress. Appearance: She is not diaphoretic. HENT: Head: Normocephalic. Eyes: Conjunctiva/sclera: Conjunctivae normal. Pupils: Pupils are equal, round, and reactive to light. Cardiovascular: Rate and Rhythm: Normal rate and regular rhythm. Heart sounds: Normal heart sounds. Pulmonary: Effort: Pulmonary effort is normal. No tachypnea, accessory muscle usage or respiratory distress. Breath sounds: Normal breath sounds. No stridor. No wheezing, rhonchi or rales. Musculoskeletal: Left elbow: No swelling. Normal range of motion. No tenderness. Left forearm: No swelling, tenderness or bony tenderness. Left wrist: No swelling, tenderness, bony tenderness or snuff box tenderness. Normal range of motion. Normal pulse. Left hand: Swelling, tenderness and bony tenderness present. No deformity. Normal range of motion. Normal strength. Normal capillary refill. Normal pulse. Hands: Cervical back: Normal range of motion. Comments: Swelling noted to highlighted area. Some ecchymosis. Tenderness to palpation to this area. Neurovascular intact. No deformities noted. No decreased range of motion. Good strength. No breaks in skin or remote redness. Skin: General: Skin is warm and dry. Neurological: Mental Status: She is alert and oriented to person, place, and time. ASSESSMENT/PLAN: 1. Injury of left hand, initial encounter - ICD9: 959.4, ICD10: S69.92XA - XR HAND GENERAL 3V PA/LAT/OBL LEFT IMPRESSION: No radiographic evidence of acute osseous injury No evidence of fracture. Suspicious of contusion. No evidence of bacterial infection. Treat conservatively at this time. Patient was educated on supportive therapies. Patient will follow up with primary care provider as needed. Patient was instructed to immediately proceed to emergency room for any new, worsening, or symptoms lasting longer than anticipated. The patient's clinical presentation is otherwise unremarkable at this time. Based on exam and clinical finding, the patient is stable for discharge. Plan of care was discussed with patient. Patient verbalizes understanding and agrees to plan of care. This note was generated using [employer] software. It may contain errors in wording, punctuation, or spelling. Darcie Roberts APRN.KRISTI [facility] History of Present illness Narrative 11-26-2022 Darcie Roberts APRN.KRISTI - 11/26/2022 10:17 AM EDT Note Date & Type Note Facility 11-26-2022 History of Presen t illness Narrative Images from the original note were not included. Subjective HPI Nontoxic-appearing female presents urgent care chief plaint left hand pain. Duration of symptoms 2 days. Associated symptoms left hand pain and swelling some bruising. Does not recall a specific injury. 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 States she woke up 2 days ago and noticed some swelling and pain in her hand. Denies any specific injury. No numbness no tingling no decreased sensation no fractures or surgeries to the past. Denies any chance of . Is not breast-feeding. Past medical history prescription medication use allergies reviewed. .Patient presents with: Hand Pain: left x 2 days, swollen PAST MEDICAL HISTORY Diagnosis Date Epilepsy (HCC) Heart murmur PAST SURGICAL HISTORY Procedure Laterality Date NONE ALLERGIES Patient has no known allergies. MEDICATIONS LEVETIRACETAM (KEPPRA ORAL) Take 600 mg by mouth twice daily. OXCARBAZEPINE (TRILEPTAL ORAL) Take 1,000 mg by mouth twice daily. naproxen 500 mg ORAL tablet Take 1 tablet by mouth twice daily as needed. FOR PAIN. TAKE WITH FOOD. FAMILY HISTORY Problem Relation Age of Onset Diabetes Father Hypertension Mother Hypertension Father Hypertension Maternal Grandmother Hypertension Maternal Grandfather Diabetes Maternal Grandfather Cancer Maternal Grandfather of pancreatic cancer Diabetes Paternal Grandmother Social History Tobacco Use Smoking status: Never Smokeless tobacco: Never Substance Use Topics Alcohol use: No Drug use: No BP 126/82 Pulse 80 Temp 36.6 C (97.8 F) Resp 16 Wt 76.2 kg (168 lb) SpO2 98% Review of Systems Constitutional: Negative for chills, fever and malaise/fatigue. HENT: Negative for congestion, ear discharge, ear pain, sinus pain and sore throat. Eyes: Negative for blurred vision, pain, discharge and redness. Respiratory: Negative for cough, hemoptysis, sputum production, shortness of breath, wheezing and stridor. Cardiovascular: Negative for chest pain. Gastrointestinal: Negative for abdominal pain, diarrhea, nausea and vomiting. Musculoskeletal: Positive for joint pain. Negative for myalgias. Skin: Negative for itching and rash. Neurological: Negative for dizziness and headaches. Objective Physical Exam Constitutional: General: She is not in acute distress. Appearance: She is not diaphoretic. HENT: Head: Normocephalic. Eyes: Conjunctiva/sclera: Conjunctivae normal. Pupils: Pupils are equal, round, and reactive to light. Cardiovascular: Rate and Rhythm: Normal rate and regular rhythm. Heart sounds: Normal heart sounds. Pulmonary: Effort: Pulmonary effort is normal. No tachypnea, accessory muscle usage or respiratory distress. Breath sounds: Normal breath sounds. No stridor. No wheezing, rhonchi or rales. Musculoskeletal: Left elbow: No swelling. Normal range of motion. No tenderness. Left forearm: No swelling, tenderness or bony tenderness. Left wrist: No swelling, tenderness, bony tenderness or snuff box tenderness. Normal range of motion. Normal pulse. Left hand: Swelling, tenderness and bony tenderness present. No deformity. Normal range of motion. Normal strength. Normal capillary refill. Normal pulse. Hands: Cervical back: Normal range of motion. Comments: Swelling noted to highlighted area. Some ecchymosis. Tenderness to palpation to this area. Neurovascular intact. No deformities noted. No decreased range of motion. Good strength. No breaks in skin or remote redness. Skin: General: Skin is warm and dry. Neurological: Mental Status: She is alert and oriented to person, place, and time. ASSESSMENT/PLAN: 1. Injury of left hand, initial encounter - ICD9: 959.4, ICD10: S69.92XA - XR HAND GENERAL 3V PA/LAT/OBL LEFT IMPRESSION: No radiographic evidence of acute osseous injury No evidence of fracture. Suspicious of contusion. No evidence of bacterial infection. Treat conservatively at this time. Patient was educated on supportive therapies. Patient will follow up with primary care provider as needed. Patient was instructed to immediately proceed to emergency room for any new, worsening, or symptoms lasting longer than anticipated. The patient's clinical presentation is otherwise unremarkable at this time. Based on exam and clinical finding, the patient is stable for discharge. Plan of care was discussed with patient. Patient verbalizes understanding and agrees to plan of care. This note was generated using [employer] software. It may contain errors in wording, punctuation, or spelling. Darcie Roberts APRN.KRISTI documented in this encounter [facility] Discharge summary note 04-01-2021 Note Date & Type Note Facility 04-01-2021 Note Department of Obstet rics and Gynecology [facility] Discharge Summary Admission on 03/16/2021 6:53 PM Armando Rosario is a 35 y.o. at 32w1d who presented as a transfer from [employer] [facility] for superimposed preeclampsia with severe features based on persistent severe range BP's requiring acute treatment with 20 and 40mg IV labetalol. Patient was started on magnesium sulfate for seizure prophylaxis and BMZ was given on 03/16-03/17. BP's on arrival were normotensive to mild range. Regimen was titrated to labetalol 200 TID and Procardia XL 90qd. Growth US 03/19 demonstrated FGR AC<1% with UAD mildly elevated. Patient was scheduled for RCD at 34w. Surgical Operations & Procedures: Date of delivery: 03/29/21 ([facility]) Procedure: Repeat with Right Tubal ligation (Left tube was absent) Anesthesia: Spinal anesthesia Delivery Complications:none EBL: 500 cc Pertinent Findings & Procedures: Information for the patient's : Troy Rosario [[id number]] female Weight: 3 lb 0.7 oz (1.38 kg) Apgars: Information for the patient's : Troy Rosario [[id number]] One Minute : 8 Five Minute : 9 Course: Uncomplicated Infant: Live female infant, NICU due to prematurity Blood Type/Rh: A POS Antibody Screen: Antibody Screen Date Value Ref Range Status 03/28/2021 NEG NA Final Rubella: No results found for: RUBELLAIGG Contraception: Tubal ligation : yes VTE Prophylaxis: Prophylactic Dosing until Discharge Meds: Armando Rosario Home Medication Instructions ABHAY:[id number] Printed on:04/01/21 1212 Medication Information acetaminophen (TYLENOL) 500 MG tablet Take 2 tablets by mouth 3 times daily as needed for Pain aspirin 81 MG chewable tablet Take 81 mg by mouth daily ibuprofen (ADVIL;MOTRIN) 600 MG tablet Take 1 tablet by mouth every 6 hours labetalol (NORMODYNE) 200 MG tablet Take 1 tablet by mouth every 8 hours lamoTRIgine (LAMICTAL) 150 MG tablet Take 150 mg by mouth 2 times daily NIFEdipine (PROCARDIA XL) 90 MG extended release tablet Take 1 tablet by mouth daily oxyCODONE (ROXICODONE) 5 MG immediate release tablet Take 1 tablet by mouth every 8 hours as needed for Pain for up to 5 days. Meds at Discharge: Medication List START taking these medications acetaminophen 500 MG tablet Commonly known as: TYLENOL Take 2 tablets by mouth 3 times daily as needed for Pain ibuprofen 600 MG tablet Commonly known as: ADVIL;MOTRIN Take 1 tablet by mouth every 6 hours oxyCODONE 5 MG immediate release tablet Commonly known as: ROXICODONE Take 1 tablet by mouth every 8 hours as needed for Pain for up to 5 days. CHANGE how you take these medications labetalol 200 MG tablet Commonly known as: NORMODYNE Take 1 tablet by mouth every 8 hours What changed: when to take this NIFEdipine 90 MG extended release tablet Commonly known as: PROCARDIA XL Take 1 tablet by mouth daily What changed: medication strength how much to take CONTINUE taking these medications aspirin 81 MG chewable tablet lamoTRIgine 150 MG tablet Commonly known as: LAMICTAL Where to Get Your Medications These medications were sent to [facility]/pharmacy #[id number] - [place], [place] - [address] - P [phone] - F [phone] [address], [place] [address] acetaminophen 500 MG tablet ibuprofen 600 MG tablet oxyCODONE 5 MG immediate release tablet You can get these medications from any pharmacy Bring a paper prescription for each of these medications labetalol 200 MG tablet NIFEdipine 90 MG extended release tablet Activity: Activity as tolerated Diet: Regular diet Follow-up Appointments: _x_ visit _x_ incision check _x_ blood pressure check _x_ depression screen Condition on discharge: Stable Discharge to: Home Discharge date: 04/01/21 Discharge Dx: Repeat section with R tubal ligation 2. SIPEwSF 3. FGR 4. Epilepsy Comments: Home care, Follow-up care and control were reviewed. Signs and symptoms of mastitis and Depression were reviewed. The patient is to notify her physician if any of these occur. [facility] Hospital course Narrative 04-01-2021 Millie Bailey MD - 04/01/2021 12:12 PM EDT Note Date & Type Note Facility 04-01-2021 Hospital course Narrative Images from the original note were not included. Department of Obstetrics and Gynecology [facility] Discharge Summary Admission on 03/16/2021 6:53 PM Armando Rosario is a 35 y.o. at 32w1d who presented as a transfer from [employer] for superimposed preeclampsia with severe features based on persistent severe range BP's requiring acute treatment with 20 and 40mg IV labetalol. Patient was started on magnesium sulfate for seizure prophylaxis and BMZ was given on 03/16-03/17. BP's on arrival were normotensive to mild range. Regimen was titrated to labetalol 200 TID and Procardia XL 90qd. Growth US 03/19 demonstrated FGR AC<1% with UAD mildly elevated. Patient was scheduled for RCD at 34w. Surgical Operations & Procedures: Date of delivery: 03/29/21 ([facility]) Procedure: Repeat with Right Tubal ligation (Left tube was absent) Anesthesia: Spinal anesthesia Delivery Complications:none EBL: 500 cc Pertinent Findings & Procedures: Information for the patient's : Troy Rosario [[id number]] female Weight: 3 lb 0.7 oz (1.38 kg) Apgars: Information for the patient's : Troy Rosario [[id number]] One Minute : 8 Five Minute : 9 Course: Uncomplicated Infant: Live female , NICU due to prematurity Blood Type/Rh: A POS Antibody Screen: Antibody Screen Date Value Ref Range Status 03/28/2021 NEG NA Final Rubella: No results found for: RUBELLAIGG Contraception: Tubal ligation : yes VTE Prophylaxis: Prophylactic Dosing until Discharge Meds: Armando Rosario Home Medication Instructions ABHAY:[id number] Printed on:04/01/21 1212 Medication Information acetaminophen (TYLENOL) 500 MG tablet Take 2 tablets by mouth 3 times daily as needed for Pain aspirin 81 MG chewable tablet Take 81 mg by mouth daily ibuprofen (ADVIL;MOTRIN) 600 MG tablet Take 1 tablet by mouth every 6 hours labetalol (NORMODYNE) 200 MG tablet Take 1 tablet by mouth every 8 hours lamoTRIgine (LAMICTAL) 150 MG tablet Take 150 mg by mouth 2 times daily NIFEdipine (PROCARDIA XL) 90 MG extended release tablet Take 1 tablet by mouth daily oxyCODONE (ROXICODONE) 5 MG immediate release tablet Take 1 tablet by mouth every 8 hours as needed for Pain for up to 5 days. Meds at Discharge: Medication List START taking these medications acetaminophen 500 MG tablet Commonly known as: TYLENOL Take 2 tablets by mouth 3 times daily as needed for Pain ibuprofen 600 MG tablet Commonly known as: ADVIL;MOTRIN Take 1 tablet by mouth every 6 hours oxyCODONE 5 MG immediate release tablet Commonly known as: ROXICODONE Take 1 tablet by mouth every 8 hours as needed for Pain for up to 5 days. CHANGE how you take these medications labetalol 200 MG tablet Commonly known as: NORMODYNE Take 1 tablet by mouth every 8 hours What changed: when to take this NIFEdipine 90 MG extended release tablet Commonly known as: PROCARDIA XL Take 1 tablet by mouth daily What changed: medication strength how much to take CONTINUE taking these medications aspirin 81 MG chewable tablet lamoTRIgine 150 MG tablet Commonly known as: LAMICTAL Where to Get Your Medications These medications were sent to [facility]/pharmacy #[id number] - [place], [place] - [address] - P [phone] - F [phone] [address], [place] [address] acetaminophen 500 MG tablet ibuprofen 600 MG tablet oxyCODONE 5 MG immediate release tablet You can get these medications from any pharmacy Bring a paper prescription for each of these medications labetalol 200 MG tablet NIFEdipine 90 MG extended release tablet Activity: Activity as tolerated Diet: Regular diet Follow-up Appointments: _x_ visit _x_ incision check _x_ blood pressure check _x_ depression screen Condition on discharge: Stable Discharge to: Home Discharge date: anticipate 03/31/21 if stable Discharge Dx: 1. Repeat section with R tubal ligation 2. SIPEwSF 3. FGR 4. Epilepsy Comments: Home care, Follow-up care and control were reviewed. Signs and symptoms of mastitis and Depression were reviewed. The patient is to notify her physician if any of these occur. documented in this encounter [facility] Work Phone: History of Present illness Narrative 04-01-2021 Lucila Champion DO - 04/01/2021 4:36 AM EDTLucila Champion DO - 03/31/2021 6:12 AM Trina Parks RN - 03/30/2021 9:37 PM Colleen Neumann RN - 03/30/2021 5:43 PM EDT Note Date & Type Note Facility 04-01-2021 History of Present illness Narrative Images from the original note were not included. POST OPERATIVE DAY # 3 Armando Rosario is a 35 y.o. who was seen & examined today. Her was complicated by: Patient Active Problem List Diagnosis Chronic hypertension with superimposed preeclampsia delivery delivered Today she is doing well without any chief complaint. Her lochia is light. She denies chest pain, shortness of breath, headache and lightheadedness. She is ambulating well. Flatus present. Bowel movement absent. Voiding spontaneously. She is tolerating solids. Pain is controlled yes. Vital Signs: Vitals: 03/31/21 1156 03/31/21 1608 03/31/21 2040 03/31/21 2355 BP: 131/79 135/88 125/79 132/89 Pulse: 66 75 76 96 Resp: 16 18 16 18 Temp: 97.8 F (36.6 C) 98.2 F (36.8 C) 98 F (36.7 C) 98 F (36.7 C) TempSrc: Temporal Temporal Temporal Temporal SpO2: 97% 97% 97% 95% Weight: Height: Urine Input & Output last 24hrs: No intake or output data in the 24 hours ending 04/01/21 0606 Physical Exam: General: no apparent distress, alert and cooperative Affect: appropriate Lungs: No increased work of breathing, good air exchange Abdomen: abdomen soft, non-distended, non-tender Fundus: non-tender, normal size, firm, below umbilicus Incision: Clean, dry, and intact Extremities: no calf tenderness, non edematous Labs: Lab Results Component Value Date WBC 15.3 (H) 03/29/2021 HGB 10.6 (L) 03/30/2021 HCT 34.2 (L) 03/29/2021 MCV 80.7 03/29/2021 PLT 199 03/29/2021 A POS Antibody Screen: Antibody Screen Date Value Ref Range Status 03/28/2021 NEG NA Final No results found for: RUBELLAIGG LABOR DELIVERY ??? SCD's ONLY (labor through ambulation) SCD's PLUS Prophylactic Anticoagulation until discharge SCD's PLUS Prophylactic Anticoagulation for 6 weeks SCD's PLUS Therapeutic Anticoagulation for 6 weeks Vaginal Delivery [] BMI ? 40 kg/m2 Delivery All patients Vaginal Delivery [] BMI ? 40 kg/m2 AND [] Antepartum hospitalization ? 72 hours within the past month Delivery 1 Major Risk Factor: [] BMI ? 35 kg/m2 [] Low Risk Thrombophilia [] PPH+RBCs, IR, or operation [] Infection+Antibiotics [x] Antepartum hospitalization ? 72 hours within the past month [] PMH: Sickle Cell, SLE, Cardiac Dz, Active IBD, Active Cancer, Nephrotic Syndrome OR 2 Minor Risk Factors: [] Multiple gestation [] Age > 40 [] PPH ? 1,000cc [] (+)FMH of VTE [] Smoker [] Preeclampsia [] BMI ? 40 kg/m2 AND [] Low Risk Thrombophilia OR ANY OF THE FOLLOWING: [] High Risk Thrombophilia without prior VTE [] Low Risk Thrombophilia with (+)FMH of VTE [] Any single prior VTE ANY OF THE FOLLOWING: [] Already on LMWH/UFH [] Multiple prior VTE [] High Risk Thrombophilia with prior VTE Low Risk Thrombophilia: FVL (heterozygous), Prothrombin (heterozygous), Protein C, Protein S High Risk Thrombophilia: FVL (homozygous), Prothrombin (homozygous), FVL+Prothrombin (heterozygous), Antithrombin III, APLS Assessment/Plan: Armando Rosario is a 35 y.o. POD # 3 s/p repeat LTCS and BTL Care - Doing well, VSS - Female infant - Both breast and bottle - Contraception: S/p BTL - Encourage ambulation and use of incentive spirometer - D/C hargrove catheter and saline lock IV on POD #1 - Postop Hb 10.6 - VTE Prophylaxis: Prophylactic Dosing until Discharge SIPEwSF - s/p Magnesium for seizure prophylaxis - Currently Procardia XL 90 mg daily and Labetalol 200 mg TID - BP normotensive to mild range over the past 24 hours - Asymptomatic Epilepsy - Last seizure 2014 - Continue home dose of Lamictal 150 mg BID Attending Supervising Physician's Attestation Statement I performed a history and physical examination on the patient and discussed the management with the resident physician. I reviewed and agree with the findings and plan as documented in the note. Pt POD#3, doing well. Pain well controlled. BP controlled on current medications. FU with MFM in 1 week for incision and BP check. I spent 15 minutes in the visit, with more than 50% of the total [id number]-ro-zhbo time of the visit in counseling/coordination of care. Disposition: Anticipate discharge today per private attending's discretion Based on my clinical assessment, this patient is safe for self discharge (does not need transport by wheelchair) if she so chooses. Provider's Name: MD Norman Tran DO 04/01/2021, 6:06 AM Images from the original note were not included. POST OPERATIVE DAY # 2 Armando Rosario is a 35 y.o. who was seen & examined today. Her was complicated by: Patient Active Problem List Diagnosis Chronic hypertension with superimposed preeclampsia delivery delivered Today she is doing well without any chief complaint. Her lochia is light. She denies chest pain, shortness of breath, lightheadedness and blurred vision. She is ambulating well. Flatus present. Bowel movement present. Voiding spontaneously. She is tolerating solids. Pain is controlled yes. Vital Signs: Vitals: 03/30/214 03/30/21 2349 03/31/21 0005 03/31/21 0420 BP: 118/69 126/72 126/72 (!) 145/88 Pulse: 71 63 63 68 Resp: Temp: 97.9 F (36.6 C) 98.2 F (36.8 C) 97.3 F (36.3 C) TempSrc: Temporal Temporal Temporal SpO2: 96% 97% 97% Weight: Height: Urine Input & Output last 24hrs: Intake/Output Summary (Last 24 hours) at 03/31/2021 0612 Last data filed at 03/31/2021 0422 Gross per 24 hour Intake 600 ml Output 800 ml Net -200 ml Physical Exam: General: no apparent distress, alert and cooperative Affect: appropriate Lungs: No increased work of breathing, good air exchange Abdomen: abdomen soft, non-distended, non-tender Fundus: non-tender, normal size, firm Incision: Dressing remains in place, patient will remove in shower today Extremities: no calf tenderness, non edematous Labs: Lab Results Component Value Date WBC 15.3 (H) 03/29/2021 HGB 10.6 (L) 03/30/2021 HCT 34.2 (L) 03/29/2021 MCV 80.7 03/29/2021 PLT 199 03/29/2021 A POS Antibody Screen: Antibody Screen Date Value Ref Range Status 03/28/2021 NEG NA Final No results found for: RUBELLAIGG LABOR DELIVERY ??? SCD's ONLY (labor through ambulation) SCD's PLUS Prophylactic Anticoagulation until discharge SCD's PLUS Prophylactic Anticoagulation for 6 weeks SCD's PLUS Therapeutic Anticoagulation for 6 weeks Vaginal Delivery [] BMI ? 40 kg/m2 Delivery All patients Vaginal Delivery [] BMI ? 40 kg/m2 AND [] Antepartum hospitalization ? 72 hours within the past month Delivery 1 Major Risk Factor: [] BMI ? 35 kg/m2 [] Low Risk Thrombophilia [] PPH+RBCs, IR, or operation [] Infection+Antibiotics [] Antepartum hospitalization ? 72 hours within the past month [] PMH: Sickle Cell, SLE, Cardiac Dz, Active IBD, Active Cancer, Nephrotic Syndrome OR 2 Minor Risk Factors: [] Multiple gestation [] Age > 40 [] PPH ? 1,000cc [] (+)FMH of VTE [] Smoker [] Preeclampsia [] BMI ? 40 kg/m2 AND [] Low Risk Thrombophilia OR ANY OF THE FOLLOWING: [] High Risk Thrombophilia without prior VTE [] Low Risk Thrombophilia with (+)FMH of VTE [] Any single prior VTE ANY OF THE FOLLOWING: [] Already on LMWH/UFH [] Multiple prior VTE [] High Risk Thrombophilia with prior VTE Low Risk Thrombophilia: FVL (heterozygous), Prothrombin (heterozygous), Protein C, Protein S High Risk Thrombophilia: FVL (homozygous), Prothrombin (homozygous), FVL+Prothrombin (heterozygous), Antithrombin III, APLS Assessment/Plan: 1. Armando Rosario is a 35 y.o. POD # 2 s/p RLTCS+BTL 2. Care - Doing well, VSS - Female infant - Both breast and bottle - Contraception: S/p BTL - Encourage ambulation and use of incentive spirometer - D/C hargrove catheter and saline lock IV on POD #1 - Postop Hb 10.6 - VTE Prophylaxis: Prophylactic Dosing until Discharge 3. SIPEwSF - Currently on Procardia XL 90 mg daily and Labetalol 200 mg TID - s/p Magnesium for seizure ppx - BP normotensive to mild range in past 24 hours - Asx this morning 4. Epilepsy - Last seizure in 2014 - Continue Lamictal 150 mg BID 5. Disposition: Anticipate discharge today per private attending's discretion Based on my clinical assessment, this patient is safe for self discharge (does not need transport by wheelchair) if she so chooses. Provider's Name: MD Radha Tran MD 03/31/2021, 6:12 AM Attending Supervising Physician's Attestation Statement I performed a history and physical examination on the patient and discussed the management with the resident physician. I reviewed and agree with the findings and plan as documented in the note. Pt sleeping, not awoken.BP normal to mild range. Anticipate dc to home Friday or Friday. Continue postoperative care. I spent 15 minutes in the visit, with more than 50% of the total zuoi-cx-[id number] time of the visit in counseling/coordination of care. To nicu via wheelchair with Pt declined meds to beds services. Pt given paper prescriptions for oxycodone, procardia, labetalol, and ibuprofen. Called into room. Pt c/o dizziness on way back to bed after voiding. Pt was assisted back to bed by tech and . Assessed patient. VS WNL, no sob, headache, chest pain, visual changes. Pt stated dizziness improved after laying down. Pt instructed to call with any changes in condition. Pt instructed to call for assistance before getting out of bed. Pt agreed, stated understanding. Images from the original note were not included. POST DAY # 1 Armando Rosario is a 35 y.o. female This patient was seen & examined today. Her was complicated by: Patient Active Problem List Diagnosis Chronic hypertension with superimposed preeclampsia Today she is doing well without any chief complaint. Her lochia is light. She denies chest pain, shortness of breath, headache, lightheadedness, and blurred vision. She is ambulating well. Flatus present. Bowel movement absent. Hargrove remains in place this AM. She is tolerating solids. Pain is controlled. Vital Signs: Vitals: 03/29/21 1541 03/29/21 1918 03/30/21 0010 03/30/21 0433 BP: 122/82 109/70 121/81 127/84 Pulse: 71 66 65 67 Resp: 20 18 16 18 Temp: 97.8 F (36.6 C) 98 F (36.7 C) 97.3 F (36.3 C) 98.3 F (36.8 C) TempSrc: Temporal Oral Temporal Temporal SpO2: 95% 97% 95% 93% Weight: Height: Urine Input & Output last 24hrs: Intake/Output Summary (Last 24 hours) at 03/30/2021 0457 Last data filed at 03/30/2021 0010 Gross per 24 hour Intake 2311 ml Output 2040 ml Net 271 ml Physical Exam: General: no apparent distress, alert and cooperative Affect: appropriate Lungs: No increased work of breathing, good air exchange, clear to auscultation bilaterally, no crackles or wheezing Heart: regular rate and rhythm Abdomen: abdomen soft, non-distended, non-tender Fundus: non-tender, normal size, firm, below umbilicus Incision: clean, dry and intact, dressing in place Extremities: no calf tenderness, non edematous Labs: Lab Results Component Value Date WBC 15.3 (H) 03/29/2021 HGB 11.2 (L) 03/29/2021 HCT 34.2 (L) 03/29/2021 MCV 80.7 03/29/2021 PLT 199 03/29/2021 A POS Antibody Screen: Antibody Screen Date Value Ref Range Status 03/28/2021 NEG NA Final No results found for: RUBELLAIGG LABOR DELIVERY ??? SCD's ONLY (labor through ambulation) SCD's PLUS Prophylactic Anticoagulation until discharge SCD's PLUS Prophylactic Anticoagulation for 6 weeks SCD's PLUS Therapeutic Anticoagulation for 6 weeks Vaginal Delivery [] BMI ? 40 kg/m2 Delivery All patients Vaginal Delivery [] BMI ? 40 kg/m2 AND [] Antepartum hospitalization ? 72 hours within the past month Delivery 1 Major Risk Factor: [x] BMI ? 35 kg/m2 [] Low Risk Thrombophilia [] PPH+RBCs, IR, or operation [] Infection+Antibiotics [x] Antepartum hospitalization ? 72 hours within the past month [] PMH: Sickle Cell, SLE, Cardiac Dz, Active IBD, Active Cancer, Nephrotic Syndrome OR 2 Minor Risk Factors: [] Multiple gestation [] Age > 40 [] PPH ? 1,000cc [] (+)FMH of VTE [] Smoker [x] Preeclampsia [] BMI ? 40 kg/m2 AND [] Low Risk Thrombophilia OR ANY OF THE FOLLOWING: [] High Risk Thrombophilia without prior VTE [] Low Risk Thrombophilia with (+)FMH of VTE [] Any single prior VTE ANY OF THE FOLLOWING: [] Already on LMWH/UFH [] Multiple prior VTE [] High Risk Thrombophilia with prior VTE Low Risk Thrombophilia: FVL (heterozygous), Prothrombin (heterozygous), Protein C, Protein S High Risk Thrombophilia: FVL (homozygous), Prothrombin (homozygous), FVL+Prothrombin (heterozygous), Antithrombin III, APLS Assessment/Plan: Armando Rosario is a POD # 1 s/p RLTCS+tubal ligation 2/2 SIPEwS (left tube surgically absent) care - doing well, VSS - female infant - pumping - contraception: s/p R tubal ligation, L tube surgically absent - VTE ppx: prophylactic dosing of Lovenox until discharge - encourage ambulation and use of incentive spirometer - D/C hargrove catheter and saline lock IV on POD #1 - postop Hb 10.6 SIPEwSF - admitted to PNU since 03/16 for BP monitoring - currently on Procardia XL 90 mg daily and Labetalol 200 mg TID - continue IV magnesium sulfate for seizure ppx for 24 hr - BP most recently - remains asx this AM Epilepsy - last seizure 2014 - currently well controlled on Lamictal 150 mg BID Disposition: Continue current care Provider's Name: MD Starr Tranh Shmuel, 03/30/2021, 4:57 AM Attestation Statement I saw and evaluated the patient. I agree with the findings and plans of the resident physician, and agree as documented in her note . POD # 1 s/p RLTCS+tubal ligation 2/2 SIPEwS. Meeting postoperative milestones BP normotensive. Continue procardiaXL 90 and Labetolol 200mg TID. IV mag to be d/c today 1044 Pain controlled Hargrove removed this am No flatus- tolerating po Dressing remains intact Minimal lochia Pumping as able. Has been to NICU to see daughter (Monty) Hgb 10.6 this am- FE and Colace prescribed Encourage ambulation and current postoperative care I spent 15 minutes in the visit, with more than 50% of the total [id number]-wo-qqfa time of the visit in counseling/coordination of care. Images from the original note were not included. Maternal Medicine Service Resident Progress Note 03/29/2021 6:11 AM 03/16/2021 Hospital Day: 14 Armando Rosario, 35 y.o. 34w0d Patient has been seen and examined. No complaints this AM, excited for delivery Positive movement Negative vaginal bleeding Negative LOF Negative Contractions Vitals: 03/28/21 1600 03/28/21 1943 03/29/21 0005 03/29/21 0528 BP: 130/88 (!) 154/85 (!) 148/94 (!) 169/97 Pulse: 76 68 76 55 Resp: 18 16 16 16 Temp: 97.6 F (36.4 C) 97.7 F (36.5 C) 98 F (36.7 C) 97.1 F (36.2 C) TempSrc: Temporal Temporal Temporal SpO2: 98% 97% 96% 97% Weight: Height: FHT: 140, moderate variability Accels: present Decels: absent Contractions: none Physical Exam: Gen: NAD HEENT: Normocephalic, Atraumatic, EOMI, MMM Resp: CTABL, no WRR Card: RRR S1S2 Abd: soft, gravid, NTND, no rebound, no guarding. negative fundal tenderness Ext: No LE edema, no calf tenderness or swelling Medications: Current Facility-Administered Medications Medication Dose Route Frequency Provider Last Rate Last Admin lactated ringers infusion IntraVENous Continuous Vee Mi DO 100 mL/hr at 03/29/21 0023 New Bag at 03/29/21 0023 calcium carbonate (TUMS) chewable tablet 500 mg 500 mg Oral TID PRN Norman Duvall DO 500 mg at 03/29/21 0013 famotidine (PEPCID) injection 20 mg 20 mg IntraVENous BID PRN Norman Duvall DO NIFEdipine (PROCARDIA XL) extended release tablet 90 mg 90 mg Oral Daily Millie Bailey MD 90 mg at 03/28/21 09 labetalol (NORMODYNE) tablet 200 mg 200 mg Oral 3 times per day Vee Mi DO 200 mg at 03/29/21 0534 ogipytjdcc-[id number] (FIORICET, ESGIC) per tablet 1 tablet 1 tablet Oral Q4H PRN Catalina Snow DO 1 tablet at 03/17/212103 lamoTRIgine (LAMICTAL) tablet 150 mg 150 mg Oral BID Maryam Bhandari MD 150 mg at 03/28/212199 sodium chloride flush 0.9 % injection 10 mL 10 mL IntraVENous 2 times per day Maryam Bhandari MD 10 mL at 03/29/21 0014 sodium chloride flush 0.9 % injection 10 mL 10 mL IntraVENous PRN Maryam Bhandari MD 0.9 % sodium chloride infusion 25 mL IntraVENous PRN Maryam Bhandari MD ondansetron (ZOFRAN-ODT) disintegrating tablet 4 mg 4 mg Oral Q8H PRN Maryam Bhandari MD Or ondansetron (ZOFRAN) injection 4 mg 4 mg IntraVENous Q6H PRN Maryam Bhandari MD acetaminophen (TYLENOL) tablet 650 mg 650 mg Oral Q4H PRN Maryam Bhandari MD 650 mg at 03/25/212227 aspirin chewable tablet 81 mg 81 mg Oral Daily Maryam Bhandari MD 81 mg at 03/28/21 09 vitamin 27-1 MG tablet 1 tablet 1 tablet Oral Daily Maryam Bhandari MD 1 tablet at 03/28/21 09 Assessment/Plan: Armando Rosario is a 35 y.o. female 34w0d SIPEwSF - Procardia XL 90mg and labetalol 200mg TID - S/p magnesium sulfate for seizure ppx, BMZ and rBMZ - PreE labs negative 03/28 and pending this AM - Bps overall normotensive to mild range, however 1x severe range at 0530 before labetalol was due - Asymptomatic FGR - 03/19 US EFW <10% with elevated UAD - 03/27 BPP/UAD cephalic, ADAMA 8.1, BPP 8/8, normal UAD Epilepsy - Lamictal 150mg BID - Last seizure 2014 Hx CD/DEsires permanent sterilization - RCD+BTL today at 1000 IUP @ 34w0d - Dating by 6w5d US - Cephalic on 03/29, posterior placenta - Monitoring:CEFM - Diet:NPO w/ IVF - BMZ x2 on 03/16- and rBMZ Further plan pending d/w attending. Norman Duvall DO 03/29/2021, 6:11 AM Comprehensive Nutrition Assessment Type and Reason for Visit: Reassess Nutrition Recommendations/Plan: 1. Continue with Regular diet and resume after delivery. 2. Encourage adequate po intake 3. RD continue to monitor overall nutritional status and follow up weekly Nutrition Assessment: IUP @ 33/6 weeks with SIPEwSF. Continues to meet criteria for expectant management for HARSH with SF. Planned delivery via rCD and tubal tomorrow at 34 weeks. Malnutrition Assessment: Malnutrition Status: No malnutrition Estimated Daily Nutrient Needs: Energy (kcal): 7574-2897 (30-35); Weight Used for Energy Requirements: [place] Protein (g): 60-70 (1.2-1.4); Weight Used for Protein Requirements: [place] Fluid (ml/day): per MD Nutrition Related Findings: + bowel sounds; trace BUE edema; +1 BLE edema; Kavon 23 Wounds: None Current Nutrition Therapies: Primary Diet: Regular Anthropometric Measures: Height: 5' 2 (157.5 cm) Current Body Weight: 190 lb (86.2 kg) Admission Body Weight: 197 lb (89.4 kg) (no method indicated) [place] Body Weight: 110 lbs BMI: 34.7 Nutrition Interventions: Food and/or Nutrient Delivery: Continue Current Diet Nutrition Education/Counseling: No recommendation at this time Coordination of Nutrition Care: Continue to monitor while inpatient Goals: Patient consume >75% meals consistently Nutrition Monitoring and Evaluation: Behavioral-Environmental Outcomes: None Identified Food/Nutrient Intake Outcomes: Food and Nutrient Intake Physical Signs/Symptoms Outcomes: Biochemical Data, GI Status, Fluid Status or Edema, Weight, Skin Discharge Planning: Too soon to determine Contact: pager [phone] Images from the original note were not included. Maternal Medicine Service Resident Progress Note 03/28/2021 6:04 AM 03/16/2021 Hospital Day: 13 Armando Rosario, 35 y.o. 33w6d Patient has been seen and examined. No complaints on exam this AM. Had mild HARRIS overnight that resolved with tylenol. Positive movement Negative vaginal bleeding Negative LOF Negative Contractions Vitals: 03/27/21 0921 03/27/21 1608 03/27/21 1942 03/28/21 0008 BP: (!) 131/90 127/79 (!) 140/90 127/76 Pulse: 63 81 71 84 Resp: 18 20 18 20 Temp: 97.6 F (36.4 C) 98.6 F (37 C) 98.9 F (37.2 C) 96.8 F (36 C) TempSrc: Temporal Temporal Temporal Temporal SpO2: 97% 97% 98% 96% Weight: Height: FHT: 130, moderate variability Accels: present Decels: absent Contractions: none Physical Exam: Gen: NAD HEENT: Normocephalic, Atraumatic, EOMI, MMM Resp: CTABL, no WRR Card: RRR S1S2 Abd: soft, gravid, NTND, no rebound, no guarding. negative fundal tenderness Ext: No LE edema, no calf tenderness or swelling Medications: Current Facility-Administered Medications Medication Dose Route Frequency Provider Last Rate Last Admin calcium carbonate (TUMS) chewable tablet 500 mg 500 mg Oral TID PRN Norman Duvall DO 500 mg at 03/27/21 1656 famotidine (PEPCID) injection 20 mg 20 mg IntraVENous BID PRN Norman Duvall DO betamethasone acetate-betamethasone sodium phosphate (CELESTONE) injection 12 mg 12 mg IntraMUSCular Q24H Vee Mi DO 12 mg at 03/27/21 0821 NIFEdipine (PROCARDIA XL) extended release tablet 90 mg 90 mg Oral Daily Millie Bailey MD 90 mg at 03/27/21922 labetalol (NORMODYNE) tablet 200 mg 200 mg Oral 3 times per day Vee Mi DO 200 mg at 03/27/212129 qfykhvhqls-ojnngwokrzmlg-lfrtvlqo (FIORICET, ESGIC) per tablet 1 tablet 1 tablet Oral Q4H PRN Catalina Snow DO 1 tablet at 03/17/212103 lamoTRIgine (LAMICTAL) tablet 150 mg 150 mg Oral BID Maryam Bhandari MD 150 mg at 03/27/212105 sodium chloride flush 0.9 % injection 10 mL 10 mL IntraVENous 2 times per day Maryam Bhandari MD 10 mL at 03/27/212105 sodium chloride flush 0.9 % injection 10 mL 10 mL IntraVENous PRN Maryam Bhandari MD 0.9 % sodium chloride infusion 25 mL IntraVENous PRN Maryam Bhandari MD ondansetron (ZOFRAN-ODT) disintegrating tablet 4 mg 4 mg Oral Q8H PRN Maryam Bhandari MD Or ondansetron (ZOFRAN) injection 4 mg 4 mg IntraVENous Q6H PRN Maryam Bhandari MD acetaminophen (TYLENOL) tablet 650 mg 650 mg Oral Q4H PRN Maryam Bhandari MD 650 mg at 03/25/212227 aspirin chewable tablet 81 mg 81 mg Oral Daily Maryam Bhandari MD 81 mg at 03/27/21922 vitamin 27-1 MG tablet 1 tablet 1 tablet Oral Daily Maryam Bhandari MD 1 tablet at 03/27/21922 Assessment/Plan: Armando Rosario is a 35 y.o. female 33w6d SIPEwSF - Procardia XL 90mg daily and labetalol 200mg TID - Bps normotensive to low mild range overnight - S/p magnesium sulfate for seizure ppx and BMZ - PreE labs negative 03/25, repeat pending today - rBMZ#2 today at 0800 FGR - 03/19 US EFW <10% with elevated UAD - 03/27 BPP/UAD cephalic, ADAMA 8.1, BPP 8, normal UAD Epilepsy - Continue home lamictal 150mg BID - Well controlled, last seizure 2014 Hx CD/Desires permanent sterilization - RCD + BTL at 34w 03/29/21 @1000 IUP @ 33w6d - Dating by 6w5d US - Cephalic on 03/27 US - Monitoring:NSTbid - Diet:General - BMZ x2 on 03/16- Further plan pending d/w attending. Norman Duvall DO 03/28/2021, 6:04 AM Associated attestation - Lucila Champion DO - 03/28/2021 11:40 AM EDT Attending Supervising Physician's Attestation Statement I performed a history and physical examination on the patient and discussed the management with the resident physician. I reviewed and agree with the findings and plan as documented in the note. Pt doing well. Continues to meet criteria for expectant management for HARSH with SF. Planned delivery via rCD and tubal tomorrow at 34 weeks. Magnesium sulfate recommended for delivery and 24 hours . I spent 15 minutes in the visit, with more than 50% of the total [id number]-ua-[id number] time of the visit in counseling/coordination of care. Images from the original note were not included. Maternal Medicine Service Resident Progress Note 03/27/2021 6:14 AM 03/16/2021 Hospital Day: 12 Armando Rosario, 35 y.o. 33w5d Patient has been seen and examined. No complaints this AM, patient had just gotten out of the shower and is feeling well. Positive movement Negative vaginal bleeding Negative LOF Negative Contractions Vitals: 03/26/21 1637 03/26/21 1952 03/27/21 0010 03/27/21 0541 BP: 128/88 133/89 128/84 (!) 144/97 Pulse: 68 71 75 64 Resp: 18 16 16 16 Temp: 98 F (36.7 C) 97.7 F (36.5 C) 98.2 F (36.8 C) 97.9 F (36.6 C) TempSrc: Temporal Temporal Temporal Temporal SpO2: 96% 97% 98% 97% Weight: Height: FHT: 130, moderate variability Accels: present Decels: absent Contractions: none Physical Exam: Gen: NAD HEENT: Normocephalic, Atraumatic, EOMI, MMM Resp: CTABL, no WRR Card: RRR S1S2 Abd: soft, gravid, NTND, no rebound, no guarding. negative fundal tenderness Ext: No LE edema, no calf tenderness or swelling Medications: Current Facility-Administered Medications Medication Dose Route Frequency Provider Last Rate Last Admin betamethasone acetate-betamethasone sodium phosphate (CELESTONE) injection 12 mg 12 mg IntraMUSCular Q24H Vee Mi DO NIFEdipine (PROCARDIA XL) extended release tablet 90 mg 90 mg Oral Daily Millie Bailey MD 90 mg at 03/26/21 08 labetalol (NORMODYNE) tablet 200 mg 200 mg Oral 3 times per day Vee Mi DO 200 mg at 03/27/21 0540 jpzsrcrtos-kfrulprlmanbi-lndseufj (FIORICET, ESGIC) per tablet 1 tablet 1 tablet Oral Q4H PRN Catalina Snow DO 1 tablet at 03/17/212103 lamoTRIgine (LAMICTAL) tablet 150 mg 150 mg Oral BID Maryam Bhandari MD 150 mg at 03/26/212131 sodium chloride flush 0.9 % injection 10 mL 10 mL IntraVENous 2 times per day Maryam Bhandari MD 10 mL at 03/26/212133 sodium chloride flush 0.9 % injection 10 mL 10 mL IntraVENous PRN Maryam Bhandari MD 0.9 % sodium chloride infusion 25 mL IntraVENous PRN Maryam Bhandrai MD ondansetron (ZOFRAN-ODT) disintegrating tablet 4 mg 4 mg Oral Q8H PRN Maryam Bhandari MD Or ondansetron (ZOFRAN) injection 4 mg 4 mg IntraVENous Q6H PRN Maryam Bhandari MD acetaminophen (TYLENOL) tablet 650 mg 650 mg Oral Q4H PRN Maryam Bhandari MD 650 mg at 03/25/21 2228 aspirin chewable tablet 81 mg 81 mg Oral Daily Maryam Bhandari MD 81 mg at 03/26/21 0823 vitamin 27-1 MG tablet 1 tablet 1 tablet Oral Daily Maryam Bhandari MD 1 tablet at 03/26/21 0823 Assessment/Plan: Armando Rosario is a 35 y.o. female 33w5d SIPEwSF - Procardia XL 90mg daily and labetalol 200mg TID - S/p magnesium sulfate for seizure ppx and BMZ - Bps overall normotensive to low mild range - PreE labs negative 03/25, asymptomatic - Candidate for rBMZ, ordered for today FGR - 03/19 US EFW <10% with elevated UAD - ANFS: weekly BPP/UAD and q2 week growth US's Epilepsy - Continue home lamictal 150mg BID - Well controlled, last seizure 2014 Hx CD/Desires permanent sterilization - RCD + BTL at 34w 03/29/21 @1000 IUP @ 33w5d - Dating by 6w5d - Breech on 03/19 - Monitoring:NSTbid - Diet:General - BMZ x2 on 03/16- Further plan pending d/w attending. Norman Duvall DO 03/27/2021, 6:14 AM Associated attestation - Luis Gamble MD - 03/27/2021 10:31 AM EDT Maternal Medicine Attending Attestation: I have performed a history and physical examination on the patient and discussed the management with the residents physician. I reviewed and agree with the findings and plan as documented in the note. 35 y.o. at 33w5d with severe preeclampsia with features and previous CS and FGR. The patient denies nausea, vomiting, vaginal bleeding, leakage of fluid, contractions, and/or abdominal pain. She also denies blurring of vision, visual disturbances, headaches, and /or epigastric pain. She reports the fetus to be active. Vitals: 03/26/21 1952 03/27/21 0010 03/27/21 0541 03/27/21 0921 BP: 133/89 128/84 (!) 144/97 (!) 131/90 Pulse: 71 75 64 63 Resp: 16 16 16 18 Temp: 97.7 F (36.5 C) 98.2 F (36.8 C) 97.9 F (36.6 C) 97.6 F (36.4 C) TempSrc: Temporal Temporal Temporal Temporal SpO2: 97% 98% 97% 97% Weight: Height: Plan: Expectant management and delivery at 34 weeks by repeat CS and BTL I spent 15 minutes at the visit, with more than 50% of the total face to face time of the visit in counseling and coordination of care. Luis Gamble MD Images from the original note were not included. Maternal Medicine Service Resident Progress Note 03/26/2021 6:18 AM 03/16/2021 Hospital Day: 11 Armando Rosario, 35 y.o. 33w4d Patient has been seen and examined. Patient was resting comfortably in bed this AM. Did not awake, and therefore a ROS and PE were not completed. Vitals: 03/25/21 1604 03/25/21 2019 03/25/21 2327 03/26/21 0428 BP: 138/86 135/83 (!) 140/94 133/81 Pulse: 68 66 68 65 Resp: 16 16 16 16 Temp: 98.2 F (36.8 C) 97.1 F (36.2 C) 98 F (36.7 C) 98 F (36.7 C) TempSrc: Temporal Temporal Temporal Temporal SpO2: 96% 96% 97% 98% Weight: Height: FHT: 140, moderate variability Accels: present Decels: 4x variable decels overnight, given IVF Contractions: none Medications: Current Facility-Administered Medications Medication Dose Route Frequency Provider Last Rate Last Admin NIFEdipine (PROCARDIA XL) extended release tablet 90 mg 90 mg Oral Daily Millie Bailey MD 90 mg at 03/25/21 0858 labetalol (NORMODYNE) tablet 200 mg 200 mg Oral 3 times per day Vee Mi DO 200 mg at 03/25/212104 eaiothrkud-byrkqlcsykkzx-ytahvxnd (FIORICET, ESGIC) per tablet 1 tablet 1 tablet Oral Q4H PRN Catalina Snow DO 1 tablet at 03/17/212103 lamoTRIgine (LAMICTAL) tablet 150 mg 150 mg Oral BID Maryam Bhandari MD 150 mg at 03/25/212104 sodium chloride flush 0.9 % injection 10 mL 10 mL IntraVENous 2 times per day Maryam Bhandari MD 10 mL at 03/25/212104 sodium chloride flush 0.9 % injection 10 mL 10 mL IntraVENous PRN Maryam Bhandari MD 0.9 % sodium chloride infusion 25 mL IntraVENous PRN Maryam Bhandari MD ondansetron (ZOFRAN-ODT) disintegrating tablet 4 mg 4 mg Oral Q8H PRN Maryam Bhandari MD Or ondansetron (ZOFRAN) injection 4 mg 4 mg IntraVENous Q6H PRN Maryam Bhandari MD acetaminophen (TYLENOL) tablet 650 mg 650 mg Oral Q4H PRN Maryam Bhandari MD 650 mg at 03/25/212227 aspirin chewable tablet 81 mg 81 mg Oral Daily Maryam Bhandari MD 81 mg at 03/25/21 0858 vitamin 27-1 MG tablet 1 tablet 1 tablet Oral Daily Maryam Bhandari MD 1 tablet at 03/25/21 0858 Assessment/Plan: Armando Rosario is a 35 y.o. female 33w4d SIPEwSF - Procardia XL 90mg daily and labetalol 200mg TID - S/p magnesium sulfate for seizure ppx and BMZ - Bps overall normotensive with rare mild range - PreE labs most recently negative 03/25 FGR - 03/19 EFW <10% with elevated UAD - ANFS: weekly BPP/UAD and q2 week growth US's - BPP today Epilepsy - Continue home lamictal 150mg BID - Well controlled, last seizure 2014 Hx CD/Desires permanent sterilization - RCD + BTL at 34w 03/29/21 @1000 IUP @ 33w4d - Dating by 6w5d - [facility] on 03/19 - Monitoring:NSTbid - Diet:General - BMZ x2 on 03/16- Further plan pending d/w attending. Norman Duvall DO 03/26/2021, 6:18 AM Associated attestation - Lucila Champion DO - 03/26/2021 2:22 PM EDT Attending Supervising Physician's Attestation Statement I performed a history and physical examination on the patient and discussed the management with the resident physician. I reviewed and agree with the findings and plan as documented in the note. Pt doing well. Continues to meet criteria for expectant management. Plan for delivery at 34 week. Candidate for rBMZ 03/27-. I spent 15 minutes in the visit, with more than 50% of the total qtea-an-imia time of the visit in counseling/coordination of care. Images from the original note were not included. Maternal Medicine Service Resident Progress Note 03/25/2021 6:12 AM 03/16/2021 Hospital Day: 10 Armando Rosario, 35 y.o. 33w3d Patient has been seen and examined. Pt with no complaints this am. Denies HARRIS, VC, CP, SOB, dizziness, RUQ pain. Positive movement Negative vaginal bleeding Negative LOF Negative Contractions Vitals: 03/24/21 1601 03/24/21 2002 03/24/21 2329 03/25/21 0501 BP: 132/87 (!) 155/90 124/76 (!) 139/95 Pulse: 67 66 68 82 Resp: 20 18 16 16 Temp: 97.5 F (36.4 C) 98.2 F (36.8 C) 97.5 F (36.4 C) 97.6 F (36.4 C) TempSrc: Temporal Temporal Temporal Temporal SpO2: 98% 96% 97% 97% Weight: Height: FHT: 140, moderate variability Accels: present Decels: absent Contractions: none Physical Exam: Gen: NAD HEENT: Normocephalic, Atraumatic, EOMI, MMM Resp: CTABL, no WRR Card: RRR S1S2 Abd: soft, gravid, NTND, no rebound, no guarding. negative fundal tenderness Ext: No LE edema, no calf tenderness or swelling Medications: Current Facility-Administered Medications Medication Dose Route Frequency Provider Last Rate Last Admin NIFEdipine (PROCARDIA XL) extended release tablet 90 mg 90 mg Oral Daily Millie Bailey MD 90 mg at 03/24/21 0857 labetalol (NORMODYNE) tablet 200 mg 200 mg Oral 3 times per day Vee Mi, DO 200 mg at 03/25/21 0500 qsjwinyerr-sdmonjnamlknk-eveyakfa (FIORICET, ESGIC) per tablet 1 tablet 1 tablet Oral Q4H PRN Catalina Snow DO 1 tablet at 03/17/212103 lamoTRIgine (LAMICTAL) tablet 150 mg 150 mg Oral BID Maryam Bhandari MD 150 mg at 03/24/212127 sodium chloride flush 0.9 % injection 10 mL 10 mL IntraVENous 2 times per day Maryam Bhandari MD 10 mL at 03/24/212128 sodium chloride flush 0.9 % injection 10 mL 10 mL IntraVENous PRN Maryam Bhandari MD 0.9 % sodium chloride infusion 25 mL IntraVENous PRN Maryam Bhandari MD ondansetron (ZOFRAN-ODT) disintegrating tablet 4 mg 4 mg Oral Q8H PRN Maryam Bhandari MD Or ondansetron (ZOFRAN) injection 4 mg 4 mg IntraVENous Q6H PRN Maryam Bhandari MD acetaminophen (TYLENOL) tablet 650 mg 650 mg Oral Q4H PRN Maryam Bhandari MD 650 mg at 03/18/21 0932 aspirin chewable tablet 81 mg 81 mg Oral Daily Maryam Bhandari MD 81 mg at 03/24/21 0857 vitamin 27-1 MG tablet 1 tablet 1 tablet Oral Daily Maryam Bhandari MD 1 tablet at 03/24/21 0857 Assessment/Plan: Armando Rosario is a 35 y.o. female 33w3d SIPEwSF - Currently on Procardia XL 90mg daily and Labetalol 200mg TID - BP's normotensive with rare high mild range - S/p magnesium sulfate for seizire prophylaxis and BMZx2 - Asymptomatic - Repeat PreE labs this am wnl FGR - 03/19 US EFW <10% with elevated UAD - ANFS: weekly BPP/UAD and q2 week growth US's Epilepsy - Continue home lamictal 150mg BID - Well controlled, last seizure 2014 Hx CD/Desires Permanent Sterilization - Plan for RCD + BTL at 34w unless indicated sooner IUP @ 33w3d - Dating by 6w5d US - Breech on 03/19 - Monitoring:NSTbid - Diet:General - BMZ x2 on 03/16- Further plan pending d/w attending. Maryam Bhandari MD 03/25/2021, 6:12 AM Associated attestation - Luis Gamble MD - 03/25/2021 2:56 PM EDT Maternal Medicine Attending Attestation: I have performed a history and physical examination on the patient and discussed the management with the residents physician. I reviewed and agree with the findings and plan as documented in the note. 35 y.o. at 33w3d with superimposed preeclampsia with severe features, FGR with high S/D ratio, seizure disorder, and previous CS. The patient denies nausea, vomiting, vaginal bleeding, leakage of fluid, contractions, and/or abdominal pain. She also denies blurring of vision, visual disturbances, headaches, and /or epigastric pain. She reports the fetus to be active. Vitals: 03/24/21 2329 03/25/21 0501 03/25/21 0750 03/25/21 1157 BP: 124/76 (!) 139/95 134/82 111/71 Pulse: 68 82 69 77 Resp: 16 16 20 20 Temp: 97.5 F (36.4 C) 97.6 F (36.4 C) 98.3 F (36.8 C) 98.5 F (36.9 C) TempSrc: Temporal Temporal Temporal Temporal SpO2: 97% 97% 97% 95% Weight: Height: Component Latest Ref Rng & Units 03/25/2021 03/25/2021 4:59 AM 4:59 AM Creatinine 0.52 - 1.25 mg/dL 0.59 Bilirubin 0.2 - 1.3 mg/dL 0.3 ALT 0 - 34 U/L 17 AST 15 - 46 U/L 22 WBC 3.6 - 10.7 10*3/uL 10.9 (H) Hemoglobin Quant 11.7 - 16.0 g/dL 11.9 Hematocrit 35.0 - 47.0 % 36.4 Platelet Count 140 - 440 10*3/uL 189 testing is reassuring. Plan: Currently on Procardia XL 90 mg daily and Labetalol 200 mg TID. Received steroids and Magnesium sulfate for seizure prophylaxis. On Lamictal (last seizure was in 2014) Repeat CS and BTL at 34 weeks. I spent 15 minutes at the visit, with more than 50% of the total face to face time of the visit in counseling and coordination of care. Luis Gamble MD Images from the original note were not included. Maternal Medicine Service Resident Progress Note 03/24/2021 6:46 AM 03/16/2021 Hospital Day: 9 Armando Rosario, 35 y.o. 33w2d Patient has been seen and examined. Pt has no acute complaints this AM, denies HARRIS, vision changes, CP, SOB or abd pain. Positive movement Negative vaginal bleeding Negative LOF Negative Contractions Vitals: 03/23/21 1541 03/23/21200903/23/21 2347 03/24/21 0529 BP: 117/81 123/78 114/75 (!) 151/90 Pulse: 73 69 80 59 Resp: 18 16 14 14 Temp: 97.6 F (36.4 C) 98.2 F (36.8 C) 97.7 F (36.5 C) 97.6 F (36.4 C) TempSrc: Temporal SpO2: 97% 97% 97% 96% Weight: Height: FHT: 130, moderate variability Accels: present Decels: absent Contractions: none Physical Exam: Gen: NAD HEENT: Normocephalic, Atraumatic, EOMI, MMM Resp: CTABL, no WRR Card: RRR S1S2 Abd: soft, gravid, NTND, no rebound, no guarding. negative fundal tenderness Ext: No LE edema, no calf tenderness or swelling Medications: Current Facility-Administered Medications Medication Dose Route Frequency Provider Last Rate Last Admin NIFEdipine (PROCARDIA XL) extended release tablet 90 mg 90 mg Oral Daily Millie Bailey MD 90 mg at 03/23/21 0902 labetalol (NORMODYNE) tablet 200 mg 200 mg Oral 3 times per day Vee Mi DO 200 mg at 03/24/21 0531 dporqzfyfz-xtuevvchqugkl-gstrgtcl (FIORICET, ESGIC) per tablet 1 tablet 1 tablet Oral Q4H PRN Catalina Snow DO 1 tablet at 03/17/212103 lamoTRIgine (LAMICTAL) tablet 150 mg 150 mg Oral BID Maryam Bhandari MD 150 mg at 03/23/212107 sodium chloride flush 0.9 % injection 10 mL 10 mL IntraVENous 2 times per day Maryam Bhandari MD 10 mL at 03/23/212108 sodium chloride flush 0.9 % injection 10 mL 10 mL IntraVENous PRN Maryam Bhandari MD 0.9 % sodium chloride infusion 25 mL IntraVENous PRN Maryam Bhandari MD ondansetron (ZOFRAN-ODT) disintegrating tablet 4 mg 4 mg Oral Q8H PRN Maryam Bhandari MD Or ondansetron (ZOFRAN) injection 4 mg 4 mg IntraVENous Q6H PRN Maryam Bhandari MD acetaminophen (TYLENOL) tablet 650 mg 650 mg Oral Q4H PRN Maryam Bhandari MD 650 mg at 03/18/21931 aspirin chewable tablet 81 mg 81 mg Oral Daily Maryam Bhandari MD 81 mg at 03/23/21901 vitamin 27-1 MG tablet 1 tablet 1 tablet Oral Daily Maryam Bhandari MD 1 tablet at 03/23/21901 Assessment/Plan: Armando Rosario is a 35 y.o. female 33w2d SIPEwSF -Continue Procardia XL 90 QD and Labetalol 200 TID, last titrated on 03/19 -S/p 24 hours magnesium sulfate for seizure prophylaxis and steroids for lung maturity -PreE labs negative on 03/23 -BP normotensive to mild range overnight -Asymptomatic this AM -Plan for delivery at 34 weeks FGR -US performed 03/19 shows EFW 1294g (<10%ile) with elevated UAD, BPP 02/04 at that time -Will continue with plan for RCD at 34 weeks Epilepsy -Continue home lamictal 150mg BID -No seizure-like activity overnight Hx CD -G1 PCD at 34 wks for PreEwSF and Cat II FHT -Planning RCD+BTL at 34 weeks if remains stable, consent signed IUP @ 33w2d - Dating by 6w5d US - Breech on 03/19 - Monitoring:NSTbid - Diet:General - BMZ x2 on 03/16- Further plan pending d/w attending. Rosemarie Villalta, 03/24/2021, 6:46 AM Associated attestation - Luis Gamble MD - 03/24/2021 12:06 PM EDT Maternal Medicine Attending Attestation: I have performed a history and physical examination on the patient and discussed the management with the residents physician. I reviewed and agree with the findings and plan as documented in the note. 35 y.o. at 33w2d with PEWSF Vitals: 03/23/21 2347 03/24/21 0529 03/24/21 0800 03/24/21 1143 BP: 114/75 (!) 151/90 129/83 117/71 Pulse: 80 59 68 83 Resp: 14 14 16 16 Temp: 97.7 F (36.5 C) 97.6 F (36.4 C) 97.9 F (36.6 C) 98.4 F (36.9 C) TempSrc: Temporal Temporal SpO2: 97% 96% 97% 97% Weight: Height: Plan: Expectant management Deliver at 34 weeks I spent 15 minutes at the visit, with more than 50% of the total face to face time of the visit in counseling and coordination of care. Luis Gamble MD Pt awake upon entering room for VS Voices no needs or complaints at this time Call light in reach Pt asleep upon entering room for VS VSS No needs at this time. Call light in reach. Placed on EFM for ordered NST Pt sitting up in chair at bedside working on a craft. Denies HARRIS, VC, epigastric pain, VB, LOF, and ctx States + movement VSS Instructed to call when ready for NST, pt verbalizes understanding No other needs at this time. Call light in reach Images from the original note were not included. Maternal Medicine Service Resident Progress Note 03/23/2021 6:18 AM 03/16/2021 Hospital Day: 8 Armando Rosario, 35 y.o. 33w1d Patient has been seen and examined. No complaints this AM, denies HARRIS/VC/SOB/RUQ pain. Positive movement Negative vaginal bleeding Negative LOF Negative Contractions Vitals: 03/22/21 1535 03/22/21202503/23/21 0019 03/23/21 0605 BP: 128/84 (!) 142/90 125/82 125/78 Pulse: 78 71 72 62 Resp: 16 16 Temp: 97.8 F (36.6 C) 98.1 F (36.7 C) TempSrc: Temporal Temporal Temporal Temporal SpO2: 100% 97% Weight: Height: FHT: 140, moderate variability Accels: present Decels: absent Contractions: none Physical Exam: Gen: NAD HEENT: Normocephalic, Atraumatic, EOMI, MMM Resp: CTABL, no WRR Card: RRR S1S2 Abd: soft, gravid, NTND, no rebound, no guarding. negative fundal tenderness Ext: No LE edema, no calf tenderness or swelling Medications: Current Facility-Administered Medications Medication Dose Route Frequency Provider Last Rate Last Admin NIFEdipine (PROCARDIA XL) extended release tablet 90 mg 90 mg Oral Daily Millie Bailey MD labetalol (NORMODYNE) tablet 200 mg 200 mg Oral 3 times per day Vee Mi, 200 mg at 03/22/212135 qmvjmpznbc-cgwkmokbhvggs-jqjkqztp (FIORICET, ESGIC) per tablet 1 tablet 1 tablet Oral Q4H PRN Catalina Kontarovich, DO 1 tablet at 03/17/212103 lamoTRIgine (LAMICTAL) tablet 150 mg 150 mg Oral BID Maryam Bhandari MD 150 mg at 03/22/21 213 sodium chloride flush 0.9 % injection 10 mL 10 mL IntraVENous 2 times per day Maryam Bhandari MD 10 mL at 03/22/21 0751 sodium chloride flush 0.9 % injection 10 mL 10 mL IntraVENous PRN Maryam Bhandari MD 0.9 % sodium chloride infusion 25 mL IntraVENous PRN Maryam Bhandari MD ondansetron (ZOFRAN-ODT) disintegrating tablet 4 mg 4 mg Oral Q8H PRN Maryam Bhandari MD Or ondansetron (ZOFRAN) injection 4 mg 4 mg IntraVENous Q6H PRN Maryam Bhandari MD acetaminophen (TYLENOL) tablet 650 mg 650 mg Oral Q4H PRN Maryam Bhandari MD 650 mg at 03/18/21 0932 aspirin chewable tablet 81 mg 81 mg Oral Daily Maryam Bhandari MD 81 mg at 03/22/21 0750 vitamin 27-1 MG tablet 1 tablet 1 tablet Oral Daily Maryam Bhandari MD 1 tablet at 03/22/21 0750 Assessment/Plan: Armando Rosario is a 35 y.o. female 33w1d SIPEwSF - Procardia 90mg XL and labetalol 200mg TID, recently titrated 03/19 - S/p 24hr magnesium sulfate and BMZ#2 - PreE labs pending this AM - Bps normotensive to mild range overnight - Asymptomatic FGR - US 03/19 with EFW 1394g <10% and elevated UA dopplers, however BPP 02/04 - Planned delivery at 34w or sooner if indicated Epilepsy - Continue home lamictal 150mg BID - Last seizure 2014 Hx CD - G1 PCD @34w for PReEwSF, Cat II - Desires RCD+BTL, consent signed and in chart IUP @ 33w1d - Dating by 6w5d - [facility]via on 03/19 - Monitoring:NSTbid - Diet:General - BMZ x2 on 03/16- Further plan pending d/w attending. Norman Duvall DO 03/23/2021, 6:18 AM Associated attestation - Luis Gamble MD - 03/23/2021 2:54 PM EDT Maternal Medicine Attending Attestation: I have performed a history and physical examination on the patient and discussed the management with the residents physician. I reviewed and agree with the findings and plan as documented in the note. 35 y.o. at 33w1d with SIPEWF and FGR. Vitals: 03/23/21 0019 03/23/21 0605 03/23/21 0851 03/23/21 1201 BP: 125/82 125/78 (!) 159/92 (!) 131/91 Pulse: 72 62 69 77 Resp: 18 18 Temp: 98.2 F (36.8 C) 98.1 F (36.7 C) TempSrc: Temporal Temporal Temporal Temporal SpO2: 97% 98% Weight: Height: Continue expectant management. I spent 15 minutes at the visit, with more than 50% of the total face to face time of the visit in counseling and coordination of care. Luis Gamble MD Comprehensive Nutrition Assessment Type and Reason for Visit: Reassess Nutrition Recommendations/Plan: 1. Continue with Regular diet as tolerated 2. Encourage adequate po intake 3. RD continue to monitor overall nutritional status and follow up weekly Nutrition Assessment: Patient IUP @ 33/0 weeksSIPEwSF s/p 24hr magnesium sulfate and BMZ#2. FGR- US 03/19 with EFW 1394g <10% and elevated UA dopplers, however BPP /8- Planned delivery at 34w or sooner if indicated. Patient reports she is tolerating her meals and has a good appetite. RD obtained bed scale weight of 180.9#. Malnutrition Assessment: Malnutrition Status: No malnutrition Estimated Daily Nutrient Needs: Energy (kcal): 4269-3129 (30-35); Weight Used for Energy Requirements: [place] Protein (g): 60-70 (1.2-1.4); Weight Used for Protein Requirements: [place] Fluid (ml/day): per MD Nutrition Related Findings: +bowel sounds; no edema noted; Kavon 23 Wounds: None Current Nutrition Therapies: Primary Diet: Regular Anthropometric Measures: Height: 5' 2 (157.5 cm) Current Body Weight: 280.9 lb Admission Body Weight: 197 lb (89.4 kg) (no method indicated) [place] Body Weight: 110 lbs Nutrition Interventions: Food and/or Nutrient Delivery: Continue Current Diet Nutrition Education/Counseling: No recommendation at this time Coordination of Nutrition Care: Continue to monitor while inpatient Goals: Patient consume >75% meals consistently Nutrition Monitoring and Evaluation: Behavioral-Environmental Outcomes: None Identified Food/Nutrient Intake Outcomes: Food and Nutrient Intake Physical Signs/Symptoms Outcomes: Biochemical Data, GI Status, Fluid Status or Edema, Skin, Weight Discharge Planning: Continue current diet Contact: pager [phone] Images from the original note were not included. Maternal Medicine Service Resident Progress Note 03/22/2021 6:21 AM 03/16/2021 Hospital Day: 7 Armando Rosario, 35 y.o. 33w0d Patient has been seen and examined. No complaints this AM, denies HARRIS/VC,RUQ pain. Positive movement Negative vaginal bleeding Negative LOF Negative Contractions Vitals: 03/21/21 1615 03/21/21 1945 03/21/21 2347 03/22/21 0530 BP: (!) 142/97 (!) 140/89 138/84 122/76 Pulse: 69 72 90 78 Resp: 20 16 16 16 Temp: 98 F (36.7 C) 97.5 F (36.4 C) 99.1 F (37.3 C) 99 F (37.2 C) TempSrc: Temporal Temporal Temporal Temporal SpO2: 97% 99% 97% 98% Weight: Height: FHT: 140, moderate variability Accels: present Decels: absent Contractions: none Physical Exam: Gen: NAD HEENT: Normocephalic, Atraumatic, EOMI, MMM Resp: CTABL, no WRR Card: RRR S1S2 Abd: soft, gravid, NTND, no rebound, no guarding. negative fundal tenderness Ext: No LE edema, no calf tenderness or swelling Medications: Current Facility-Administered Medications Medication Dose Route Frequency Provider Last Rate Last Admin labetalol (NORMODYNE) tablet 200 mg 200 mg Oral 3 times per day Vee Mi, DO 200 mg at 03/22/21 0530 NIFEdipine (PROCARDIA XL) extended release tablet 90 mg 90 mg Oral Daily Joana Gilliam, DO 90 mg at 03/21/21 09 vhwptqkwde-ghxgmhperiwcj-ldhebwxz (FIORICET, ESGIC) per tablet 1 tablet 1 tablet Oral Q4H PRN Catalina Snow, DO 1 tablet at 03/17/212103 lamoTRIgine (LAMICTAL) tablet 150 mg 150 mg Oral BID Maryam Bhandari MD 150 mg at 03/21/212112 sodium chloride flush 0.9 % injection 10 mL 10 mL IntraVENous 2 times per day Maryam Bhandari MD 10 mL at 03/21/212112 sodium chloride flush 0.9 % injection 10 mL 10 mL IntraVENous PRN Maryam Bhandari MD 0.9 % sodium chloride infusion 25 mL IntraVENous PRN Maryam Bhandari MD ondansetron (ZOFRAN-ODT) disintegrating tablet 4 mg 4 mg Oral Q8H PRN Maryam Bhandari MD Or ondansetron (ZOFRAN) injection 4 mg 4 mg IntraVENous Q6H PRN Maryam Bhandari MD acetaminophen (TYLENOL) tablet 650 mg 650 mg Oral Q4H PRN Maryam Bhandari MD 650 mg at 03/18/21 0932 aspirin chewable tablet 81 mg 81 mg Oral Daily Maryam Bhandari MD 81 mg at 03/21/21917 vitamin 27-1 MG tablet 1 tablet 1 tablet Oral Daily Maryam Bhandari MD 1 tablet at 03/21/21917 Assessment/Plan: Armando Rosario is a 35 y.o. female 33w0d SIPEwSF - Procardia 90mg XL and labetalol 200mg TID, recently titrated 03/19 - PreE labs neg 03/19 - S/p 24hr magnesium sulfate and BMZ#2 - Bps normotensive to low mild range overnight - Asymptomatic FGR - US 03/19 with EFW 1394g <10% and elevated UA dopplers, however BPP 02/04 - Planned delivery at 34w or sooner if indicated Epilepsy - Continue home lamictal 150mg BID - Last seizure 2014 Hx CD - G1 PCD @34w for PReEwSF, Cat II - Desires RCD+BTL, consent signed and in chart IUP @ 33w0d - Dating by 6w5d - Breech on 03/19 - Monitoring:NSTbid - Diet:General - BMZ x2 on 03/16- Further plan pending d/w attending. Norman Duvall DO 03/22/2021, 6:21 AM Associated attestation - Lucila Champion DO - 03/22/2021 3:38 PM EDT Attending Supervising Physician's Attestation Statement I performed a history and physical examination on the patient and discussed the management with the resident physician. I reviewed and agree with the findings and plan as documented in the note. No s/s of worsening preeclampsia. Continue expectant management. Planned delivery at 34 weeks or sooner if needed. Consider [facility] 03/27-. I spent 15 minutes in the visit, with more than 50% of the total menc-lb-fpdt time of the visit in counseling/coordination of care. Images from the original note were not included. Maternal Medicine Service Resident Progress Note 03/21/2021 6:20 AM 03/16/2021 Hospital Day: 6 Armando Rosario, 35 y.o. 32w6d Patient has been seen and examined. No complaints this AM, denies HARRIS/SOB/CP/VC. Positive movement Negative vaginal bleeding Negative LOF Negative Contractions Vitals: 03/20/21 1608 03/20/21 2039 03/20/21 2313 03/21/21 0415 BP: (!) 155/87 (!) 144/95 (!) 152/99 (!) 145/100 Pulse: 75 78 68 74 Resp: 20 20 16 16 Temp: 97.9 F (36.6 C) 98.1 F (36.7 C) 97.3 F (36.3 C) 97.9 F (36.6 C) TempSrc: Temporal Temporal Temporal Temporal SpO2: 97% 97% 97% 98% Weight: Height: FHT: 140, moderate variability Accels: present Decels: absent Contractions: none Physical Exam: Gen: NAD HEENT: Normocephalic, Atraumatic, EOMI, MMM Resp: CTABL, no WRR Card: RRR S1S2 Abd: soft, gravid, NTND, no rebound, no guarding. negative fundal tenderness Ext: No LE edema, no calf tenderness or swelling Medications: Current Facility-Administered Medications Medication Dose Route Frequency Provider Last Rate Last Admin labetalol (NORMODYNE) tablet 200 mg 200 mg Oral 3 times per day Vee Dee Smerker, DO 200 mg at 03/21/21 0605 NIFEdipine (PROCARDIA XL) extended release tablet 90 mg 90 mg Oral Daily Joana Gilliam, DO 90 mg at 03/20/21 0914 mbvttzbwvp-oktxrlmbtgibc-qqulpvxm (FIORICET, ESGIC) per tablet 1 tablet 1 tablet Oral Q4H PRN Catalina Michaelroshaun, DO 1 tablet at 03/17/21 2104 lamoTRIgine (LAMICTAL) tablet 150 mg 150 mg Oral BID Maryam Bhandari MD 150 mg at 03/20/21 2216 sodium chloride flush 0.9 % injection 10 mL 10 mL IntraVENous 2 times per day Maryam Bhandari MD 10 mL at 03/20/21 2219 sodium chloride flush 0.9 % injection 10 mL 10 mL IntraVENous PRN Maryam Bhandari MD 0.9 % sodium chloride infusion 25 mL IntraVENous PRN Maryam Bhandari MD ondansetron (ZOFRAN-ODT) disintegrating tablet 4 mg 4 mg Oral Q8H PRN Maryam Bhandari MD Or ondansetron (ZOFRAN) injection 4 mg 4 mg IntraVENous Q6H PRN Maryam Bhandari MD acetaminophen (TYLENOL) tablet 650 mg 650 mg Oral Q4H PRN Maryam Bhandari MD 650 mg at 03/18/21 0932 aspirin chewable tablet 81 mg 81 mg Oral Daily Maryam Bhandari MD 81 mg at 03/20/21 0917 vitamin 27-1 MG tablet 1 tablet 1 tablet Oral Daily Maryam Bhandari MD 1 tablet at 03/20/21 0914 Assessment/Plan: Armando Rosario is a 35 y.o. female 32w6d HARSH vs uncontrolled cHTN - Increased Procardia 90mg XL and increased labetalol 200mg TID 03/19 - PreE labs negative 03/19 - S/p 24hr magnesium sulfate for seizure ppx - S/p BMZ#2 - Bps consistently high mild range overnight, will discuss regimen with attending this AM - Asymptomatic on exam this AM FGR - US 03/19 with EFW 1394g <10% and elevated UA dopplers, however BPP 02/04 - Planned delivery at 34w or sooner if indicated Epilepsy - Continue home lamictal 150mg BID - Last seizure in 2014 Hx CD - G1 PCD @34w for PReEwSF, Cat II - Desires RCD+BTL, consent signed and in chart IUP @ 32w6d - Dating by 6w5d - Breech on 03/19 - Monitoring:NSTbid - Diet:General - BMZ x2 on 03/16- Further plan pending d/w attending. Norman Duvall DO 03/21/2021, 6:20 AM Associated attestation - Lucila Champion DO - 03/21/2021 2:14 PM EDT Attending Supervising Physician's Attestation Statement I performed a history and physical examination on the patient and discussed the management with the resident physician. I reviewed and agree with the findings and plan as documented in the note. Stable preeclampsia with severe features. Meets criteria for expectannt management. Plan delivery at 34 weeks. I spent 15 minutes in the visit, with more than 50% of the total amuz-lv-fueh time of the visit in counseling/coordination of care. Images from the original note were not included. Maternal Medicine Service Resident Progress Note 03/20/2021 6:22 AM 03/16/2021 Hospital Day: 5 Armando Rosario, 35 y.o. 32w5d Patient has been seen and examined. No complaints on exam this AM. Patient denies further HARRIS, and no SOB, chest pain, epigastric pain. Positive movement Negative vaginal bleeding Negative LOF Negative Contractions Vitals: 03/20/21 0110 03/20/21 0157 03/20/21 0257 03/20/21 0357 BP: 107/69 126/74 129/81 Pulse: 71 71 76 68 Resp: Temp: TempSrc: SpO2: Weight: Height: FHT: 140, moderate variability Accels: present Decels: absent Contractions: none Physical Exam: Gen: NAD HEENT: Normocephalic, Atraumatic, EOMI, MMM Resp: CTABL, no WRR Card: RRR S1S2 Abd: soft, gravid, NTND, no rebound, no guarding. negative fundal tenderness Ext: No LE edema, no calf tenderness or swelling Medications: Current Facility-Administered Medications Medication Dose Route Frequency Provider Last Rate Last Admin labetalol (NORMODYNE) tablet 200 mg 200 mg Oral 3 times per day Vee Mi DO 200 mg at 03/20/21 0001 NIFEdipine (PROCARDIA XL) extended release tablet 90 mg 90 mg Oral Daily Joana Gilliam DO [id number]-wzvfvgrjpbdsl-qpavcvwk (FIORICET, ESGIC) per tablet 1 tablet 1 tablet Oral Q4H PRN Catalina Snow DO 1 tablet at 03/17/212103 lamoTRIgine (LAMICTAL) tablet 150 mg 150 mg Oral BID Maryam Bhandari MD 150 mg at 03/19/212056 sodium chloride flush 0.9 % injection 10 mL 10 mL IntraVENous 2 times per day Maryam Bhandari MD 10 mL at 03/19/212037 sodium chloride flush 0.9 % injection 10 mL 10 mL IntraVENous PRN Maryam Bhandari MD 0.9 % sodium chloride infusion 25 mL IntraVENous PRN Maryam Bhandari MD ondansetron (ZOFRAN-ODT) disintegrating tablet 4 mg 4 mg Oral Q8H PRN Maryam Bhandari MD Or ondansetron (ZOFRAN) injection 4 mg 4 mg IntraVENous Q6H PRN Maryam Bhandari MD acetaminophen (TYLENOL) tablet 650 mg 650 mg Oral Q4H PRN Maryam Bhandari MD 650 mg at 03/18/21 0932 aspirin chewable tablet 81 mg 81 mg Oral Daily Maryam Bhandari MD 81 mg at 03/19/21 0857 vitamin 27-1 MG tablet 1 tablet 1 tablet Oral Daily Maryam Bhandari MD 1 tablet at 03/19/21 0857 Assessment/Plan: Armando Rosario is a 35 y.o. female 32w5d SIPEwSF vs uncontrolled cHTN - Persistent severe range Bps, acutely treated with hydralazine 10mg @2037 - Increased Procardia 90mg XL and increased labetalol 200mg TID 03/19 - Repeat PreE labs negative last evening - S/p 24hr magnesium sulfate for seizure ppx - Asymptomatic on exam this AM FGR - US 03/19 with EFW 1394g <10% and elevated UA dopplers, however BPP 02/04 - Planned delivery at 34w or sooner if indicated Epilepsy - Continue home lamictal 150mg BID - last seizure in 2014 Hx CD - G1 PCD @34w for PReEwSF, Cat II - Desires RCD+BTL, consent signed and in chart IUP @ 32w5d - Dating by 6w5d US - Cephalic on 03/16 - Monitoring:CEFM - Diet:NPO - BMZ x2 on 03/16- Further plan pending d/w attending. Norman Duvall DO 03/20/2021, 6:22 AM Associated attestation - Luis Gamble MD - 03/20/2021 12:26 PM EDT Maternal Medicine Attending Attestation: I have performed a history and physical examination on the patient and discussed the management with the residents physician. I reviewed and agree with the findings and plan as documented in the note. 35 y.o. at 32w5d with chronic hypertension and FGR. The patient denies nausea, vomiting, vaginal bleeding, leakage of fluid, contractions, and/or abdominal pain. She also denies blurring of vision, visual disturbances, headaches, and /or epigastric pain. She reports the fetus to be active. Vitals: 03/20/21 0357 03/20/21 0637 03/20/21 0859 03/20/21 1217 BP: 129/81 (!) 156/88 (!) 152/92 130/87 Pulse: 68 64 65 72 Resp: 18 Temp: 98.8 F (37.1 C) 98.5 F (36.9 C) TempSrc: Temporal Temporal SpO2: 97% 97% Weight: Height: She had BP > 160/110 before 20 weeks The DD includes chronic hypertension versus chronic hypertension with superimposed preeclampsia with features. Will continue Labetalol and Procardia EKG is ordered to look for evidence of LVH. Will monitor BP and titrate antihypertension med's. IF SEWSF, will deliver at 34 weeks If no PE, will deliver at 36 to 37 weeks based on clinical pictures. I spent 15 minutes at the visit, with more than 50% of the total face to face time of the visit in counseling and coordination of care. Luis Gamble MD Notified by RN of persistent severe range Bps. She received her labetalol 200mg at 1830. She also received procardia 60mg at 0900. Discussed with Dr. Champion. Will acutely treat Bps now. Once Bps are controlled, will titrate procardia to 90mg QD. Will repeat PreE labs. Will place on EFM while treating Bps. BP now mild range after hydralazine. Will give additional procardia 30mg now and titrate to procardia XL 90mg QD. Dr. Haynes notified of repeat blood pressure of 175/103. Awaiting orders. Patient's BP 163/99. Dr. Gilliam notified. Will recheck in 15 minutes. Comprehensive Nutrition Assessment Type and Reason for Visit: Initial (DT referral for HTN) Nutrition Recommendations/Plan: 1. Continue with Regular diet as tolerated 2. Encourage adequate po/protein intake 3. Suggest daily weights to monitor fluid status 4. RD continue to monitor overall nutritional status and follow up weekly Nutrition Assessment: Patient IUP @ 32/4 weeks transported from [employer] for suspected superimposed preeclampsia in the setting of chronic hypertension. She had persistent severe range BP's acutely treated with 20 and 40mg labetalol. She was also started on magnesium sulfate for seizure prophylaxis and given one dose of BMZ. Patient had a headache on arrival but denies CP, SOB, VC, RUQ pain, dizzinessPoorly controlled during with multiple severe range BP's noted during visits.- BMZ x2 on 03/16-. Patient currently on Regular diet and tolerating well per notes. Patient currently out of room during RD visit. Malnutrition Assessment: Malnutrition Status: No malnutrition Estimated Daily Nutrient Needs: Energy (kcal): 4875-3331 (30-35); Weight Used for Energy Requirements: [place] Protein (g): 60-70 (1.2-1.4); Weight Used for Protein Requirements: [place] Fluid (ml/day): per MD Nutrition Related Findings: +bowel sounds; +1 BLE pitting edema; Kavon 23; - I&O; BG 126 (s/p BMZ) Wounds: None Current Nutrition Therapies: Primary Diet: Regular Anthropometric Measures: Height: 5' 2 (157.5 cm) Current Body Weight: no current weight Admission Body Weight: 197 lb (89.4 kg) (no method indicated) [place] Body Weight: 110 lbs Nutrition Diagnosis: Increased nutrient needs related to increase demand for energy/nutrients as evidenced by (IUP @ 32 weeks) Nutrition Interventions: Food and/or Nutrient Delivery: Continue Current Diet Nutrition Education/Counseling: No recommendation at this time Coordination of Nutrition Care: Continue to monitor while inpatient Goals: Patient consume >75% meals consistently Nutrition Monitoring and Evaluation: Behavioral-Environmental Outcomes: None Identified Food/Nutrient Intake Outcomes: Food and Nutrient Intake Physical Signs/Symptoms Outcomes: Biochemical Data, GI Status, Fluid Status or Edema, Skin, Weight Discharge Planning: Continue current diet Contact: pager [phone] Images from the original note were not included. Maternal Medicine Service Resident Progress Note 03/19/2021 6:12 AM 03/16/2021 Hospital Day: 4 Armando Rosario, 35 y.o. 32w4d Patient has been seen and examined. Pt has no complaints this morning. Denies headache, vision changes, chest pain, shortness of breath, abdominal pain, RUQ pain, increased LE edema. Positive movement Negative vaginal bleeding Negative LOF Negative Contractions Vitals: 03/18/21 2045 03/18/21 2047 03/19/21 0000 03/19/21 0001 BP: (!) 159/91 131/73 Pulse: 62 63 Resp: Temp: 98.5 F (36.9 C) 98.1 F (36.7 C) TempSrc: SpO2: 99% 99% Weight: Height: FHT: 140, moderate variability Accels: present Decels: absent Contractions: none Physical Exam: Gen: NAD HEENT: Normocephalic, Atraumatic, EOMI, MMM Resp: CTABL, no WRR Card: RRR S1S2 Abd: soft, gravid, NTND, no rebound, no guarding. negative fundal tenderness Ext: No LE edema, no calf tenderness or swelling Medications: Current Facility-Administered Medications Medication Dose Route Frequency Provider Last Rate Last Admin xhjhytuwtg-dtgjyuwfmetft-ftjqdlsw (FIORICET, ESGIC) per tablet 1 tablet 1 tablet Oral Q4H PRN Catalina Snow DO 1 tablet at 03/17/212103 labetalol (NORMODYNE) tablet 200 mg 200 mg Oral BID Maryam Bhandari MD 200 mg at 03/18/212046 lamoTRIgine (LAMICTAL) tablet 150 mg 150 mg Oral BID Maryam Bhandari MD 150 mg at 03/18/212044 NIFEdipine (PROCARDIA XL) extended release tablet 60 mg 60 mg Oral Daily Maryam Bhandari MD 60 mg at 03/18/21931 sodium chloride flush 0.9 % injection 10 mL 10 mL IntraVENous 2 times per day Maryam Bhandari MD 10 mL at 03/18/212052 sodium chloride flush 0.9 % injection 10 mL 10 mL IntraVENous PRN Maryam Bhandari MD 0.9 % sodium chloride infusion 25 mL IntraVENous PRN Maryam Bhandari MD ondansetron (ZOFRAN-ODT) disintegrating tablet 4 mg 4 mg Oral Q8H PRN Maryam Bhandari MD Or ondansetron (ZOFRAN) injection 4 mg 4 mg IntraVENous Q6H PRN Maryam Bhandari MD acetaminophen (TYLENOL) tablet 650 mg 650 mg Oral Q4H PRN Maryam Bhandari MD 650 mg at 03/18/21931 aspirin chewable tablet 81 mg 81 mg Oral Daily Maryam Bhandari MD 81 mg at 03/18/21931 vitamin 27-1 MG tablet 1 tablet 1 tablet Oral Daily Maryam Bhandari MD 1 tablet at 03/18/21937 Assessment/Plan: Armando Rosario is a 35 y.o. female 32w4d SIPEwSF vs Uncontrolled cHTN - Acutely tx'd and started on magnesium sulfate for seizure ppx at OSH, now d/c'd - Currently on Procardia 60mg XL daily and labetalol 200mg BID Will increase to 200- mg TID. - Bps 1x high mild range overnight, otherwise normotensive - Asymptomatic FGR - Fetus measuring 1400g on last U/S - Per Dr. Samson, will obtain growth records - Growth, BPP, and UA Dopplers today Epilepsy - Continue home lamictal 150mg BID - Last seizure 2014 Hx CD - G1 PCD @34w for PreEwSF, Cat II - Desires RCD + BTL IUP @ 32w4d - Dating by 6w5d US - Cephalic on 03/16 - Monitoring:CEFM - Diet:NPO - BMZ x2 on 03/16- Further plan pending d/w attending. Norman Duvall DO 03/19/2021, 6:12 AM Attending Supervising Physician's Attestation Statement I performed a history and physical examination on the patient and discussed the management with the resident physician. I reviewed and agree with the findings and plan as documented in the note. US with IUGR, elevated UA Doppler and reassuring BPP. Continue inpt management with planned delivery at 34 weeks, or sooner if indicated. I spent 15 minutes in the visit, with more than 50% of the total aufs-lv-qesj time of the visit in counseling/coordination of care. ` Nutrition rescreen completed. Patient referred to the Dietitian. Images from the original note were not included. Maternal Medicine Service Resident Progress Note 03/18/2021 5:43 AM 03/16/2021 Hospital Day: 3 Armando Rosario, 35 y.o. 32w3d Patient has been seen and examined. Patient with no complaints this morning. Notes some intermittent, mild headaches overnight but currently denies HARRIS, VC, CP, SOB, dizziness, RUQ pain. Positive movement Negative vaginal bleeding Negative LOF Negative Contractions Vitals: 03/17/21 2150 03/18/21 0005 03/18/21 0006 03/18/21 0406 BP: 128/69 (!) 153/90 Pulse: 73 87 62 Resp: 16 16 Temp: 98.8 F (37.1 C) 99.3 F (37.4 C) TempSrc: SpO2: 98% 97% Weight: Height: FHT: 120, moderate variability Accels: present Decels: absent Contractions: irregular Physical Exam: Gen: NAD HEENT: Normocephalic, Atraumatic, EOMI, MMM Resp: CTABL, no WRR Card: RRR S1S2 Abd: soft, gravid, NTND, no rebound, no guarding. negative fundal tenderness Ext: No LE edema, no calf tenderness or swelling Medications: Current Facility-Administered Medications Medication Dose Route Frequency Provider Last Rate Last Admin sodium chloride flush 0.9 % injection 10 mL 10 mL IntraVENous BID Catalina Snow DO 10 mL at 09/19/21 0045 drtaimfeyc-gbxpsnyccwxpy-ogfgwwdz (FIORICET, ESGIC) per tablet 1 tablet 1 tablet Oral Q4H PRN Catalina Snow DO 1 tablet at 03/17/212103 labetalol (NORMODYNE) tablet 200 mg 200 mg Oral BID Maryam Bhandari MD 200 mg at 03/17/212102 lamoTRIgine (LAMICTAL) tablet 150 mg 150 mg Oral BID Maryam Bhandari MD 150 mg at 03/17/212102 NIFEdipine (PROCARDIA XL) extended release tablet 60 mg 60 mg Oral Daily Maryam Bhandari MD 60 mg at 03/17/21 0848 sodium chloride flush 0.9 % injection 10 mL 10 mL IntraVENous 2 times per day Maryam Bhandari MD sodium chloride flush 0.9 % injection 10 mL 10 mL IntraVENous PRN Maryam Bhandari MD 0.9 % sodium chloride infusion 25 mL IntraVENous PRN Maryam Bhandari MD ondansetron (ZOFRAN-ODT) disintegrating tablet 4 mg 4 mg Oral Q8H PRN Maryam Bhandari MD Or ondansetron (ZOFRAN) injection 4 mg 4 mg IntraVENous Q6H PRN Maryam Bhandari MD acetaminophen (TYLENOL) tablet 650 mg 650 mg Oral Q4H PRN Maryam Bhandari MD aspirin chewable tablet 81 mg 81 mg Oral Daily Maryam Bhandari MD 81 mg at 03/17/21 0847 vitamin 27-1 MG tablet 1 tablet 1 tablet Oral Daily Maryam Bhandari MD Assessment/Plan: Armando Rosario is a 35 y.o. female 32w3d SIPEwSF vs Uncontrolled cHTN - Currently on Procardia 60mg XL daily and labetalol 600mg BID - BP's normotensive with rare high mild range this am 153/90 - Asymptomatic - S/p Magnesium sulfate for seizure prophylaxis FGR - MFM to obtain growth records Epilepsy - Continue home lamictal Hx CD - Desires RCD + BTL IUP @ 32w3d - Dating by 6w5d U/S - Cephalic on 03/16 - Monitoring:CEFM - Diet:NPO - BMZ x2 on 03/17 Further plan pending d/w attending. Maryam Bhandari MD 03/18/2021, 5:43 AM Associated attestation - Licha Samson MD - 03/18/2021 9:31 AM EDT I performed a history and physical examination on the patient and discussed the management with the resident physician. I reviewed and agree with the findings and plan as documented in their note today. 35 yr old at 32 3/7 GA with the following: SIPEw SF vs uncontrolled hypertension patient reports a difficult with regards to BP control, worsening headache over the past week with improved headache and resolved currently this am. Off magnesium discussed low threshold for delivery if recurrent now past steroid window FGR female 3rd percentile and received Celestone X one and will give repeat early today plan for BPP/confirmation of EFW and Doppler tomorrow am History of CD desires repeat BMI of 36 Desired permanent sterilization. I talked about this being permanent and not reversible and would caution in delivery of infant. The patient desires to NOT be and is adamant about her BTL. Will obtain paperwork from Dr. Rivera's office Epilepsy on lamictal gran mal per patient no typical history of headaches. Had partial seizure in January with adjustments Comprehensive discussion again today with present about pre-eclampsia and the progressive unpredictable nature of the disease. Her Blood pressures and labs are stable currently. We talked about her headache and although it is resolved it may reoccur. I talked about conservative expectant management and the criteria. If she has a persistent headache despite all therapies would recommend delivery as this is a contraindication for conservative management. This was communicated with her and her today and her referring physician today, Dr. Rivera. She understands low threshold for delivery. I spent 15 minutes in the visit today on the floor reviewing the chart, discussing the case with the residency staff and nursing Licha Samson MD MD Images from the original note were not included. Maternal Medicine Service Resident Progress Note 03/17/2021 6:23 AM 03/16/2021 Hospital Day: 2 Armando Rosario, 35 y.o. 32w2d Patient has been seen and examined. Pt has no complaints this morning. She denies HARRIS/VC/SOB/RUQ pain. Positive movement Negative vaginal bleeding Negative LOF Negative Contractions Vitals: 03/17/21 0450 03/17/21 0455 03/17/21 0500 03/17/21 0505 BP: Pulse: 73 70 71 70 Resp: Temp: TempSrc: SpO2: 98% 98% 97% 97% Weight: Height: FHT: 120, moderate variability Accels: present Decels: absent Contractions: none Physical Exam: Gen: NAD HEENT: Normocephalic, Atraumatic, EOMI, MMM Resp: CTABL, no WRR Card: RRR S1S2 Abd: soft, gravid, NTND, no rebound, no guarding. negative fundal tenderness Ext: No LE edema, no calf tenderness or swelling Medications: Current Facility-Administered Medications Medication Dose Route Frequency Provider Last Rate Last Admin magnesium sulfate (35440 mg/500mL infusion) 2,000 mg/hr IntraVENous Continuous Maryam Bhandari MD 50 mL/hr at 03/17/21 0400 2,000 mg/hr at 03/17/21 0400 labetalol (NORMODYNE) tablet 200 mg 200 mg Oral BID Maryam Bhandari MD 200 mg at 03/16/21 2223 lamoTRIgine (LAMICTAL) tablet 150 mg 150 mg Oral BID Maryam Bhandari MD 150 mg at 03/16/21 2223 NIFEdipine (PROCARDIA XL) extended release tablet 60 mg 60 mg Oral Daily Maryam Bhandari MD 60 mg at 03/16/21 2223 sodium chloride flush 0.9 % injection 10 mL 10 mL IntraVENous 2 times per day Maryam Bhandari MD sodium chloride flush 0.9 % injection 10 mL 10 mL IntraVENous PRN Maryam Bhnadari MD 0.9 % sodium chloride infusion 25 mL IntraVENous PRN Maryam Bhandari MD ondansetron (ZOFRAN-ODT) disintegrating tablet 4 mg 4 mg Oral Q8H PRN Maryam Bhandari MD Or ondansetron (ZOFRAN) injection 4 mg 4 mg IntraVENous Q6H PRN Maryam Bhandari MD acetaminophen (TYLENOL) tablet 650 mg 650 mg Oral Q4H PRN Maryam Bhandari MD betamethasone acetate-betamethasone sodium phosphate (CELESTONE) injection 12 mg 12 mg IntraMUSCular Once Maryam Bhandari MD aspirin chewable tablet 81 mg 81 mg Oral Daily Maryam Bhandari MD vitamin 27-1 MG tablet 1 tablet 1 tablet Oral Daily Maryam Bhandari MD oxytocin (PITOCIN) 30 units in 500 mL infusion Override Pull Assessment/Plan: Armando Rosario is a 35 y.o. female 32w2d SIPEwSF vs uncontrolled cHTN - transfer from [place] for persistent severe range Bps, acutely treated with 20 and 40mg labetalol IV prior to transfer - currently on procardia 60mg XL daily and labetalol 600mg BID - BP well controlled overnight - PreE labs negative this AM - pt is asymptomatic - magnesium for seizure prophylaxis FGR - baby was measuring 1400g on last US - MFM to obtain growth US records Epilepsy - continue lamictal 150mg BID - last seizure 2014 Hx CD - with G1 at 34w due to PreEwSF - desired RCD Desires permanent sterilization - consent signed 02/16/21 per records, will have patient sign papers again to have on file COVID in - diagnosed 01/10/21 - asymptomatic Obesity - BMI 36 IUP @ 32w2d - Dating by 6w5d US - Cephalic on 03/16 - Monitoring:CEFM - Diet:NPO - BMZ x1 on 03/16 Further plan pending d/w attending. Catalina Snow DO 03/17/2021, 6:23 AM Associated attestation - Licha Samson MD - 03/17/2021 12:13 PM EDT I performed a history and physical examination on the patient and discussed the management with the resident physician. I reviewed and agree with the findings and plan as documented in their note today. 35 yr old at 32 2/7 GA with the following: SIPEw SF vs uncontrolled hypertension patient reports a difficult with regards to BP control, worsening headache over the past week with now severe in nature over the past two days improving with reglan but still about a 2-3 currently frontal and no visual changes. Labs are stable. Continued NPO status and magnesium IV FGR female 3rd percentile and received Celestone X one and will give repeat early today History of CD desires repeat BMI of 36 Desired permanent sterilization. I talked about this being permanent and not reversible and would caution in delivery of . The patient desires to NOT be and is adamant about her BTL. Will obtain paperwork from Dr. Rivera's office Epilepsy on lamictal gran mal per patient no typical history of headaches. Had partial seizure in January with adjustments Comprehensive discussion about pre-eclampsia and the progressive unpredictable nature of the disease. Her Blood pressures and labs are stable currently. We talked about her headache and although it is improved it is still persistent with severe features up to 6/10 at times. She reports a 3/10 in severity currently despite reglan. I talked about conservative expectant management and the criteria. If she has a persistent headache despite all therapies would recommend delivery as this is a contraindication for conservative management. This was communicated with her today and her referring physician today, Dr. Rivera I spent 25 minutes in the visit today on the floor reviewing the chart, discussing the case with the residency staff and nursing Licha Samson MD MD documented in this encounter [facility] Work Phone: Hospital Discharge instructions 03-29-2021 Instructions Note Date & Type Note Facility 03-29-2021 Hospital Discharg e instructions Thor Fregoso, DO - 03/29/2021 Images from the original note were not included. After Your Delivery (the Period): Your Care Instructions Congratulations on the of your baby. Like , the period can be a time of excitement, phu, and exhaustion. You may look at your wondrous little baby and feel happy. You may also be overwhelmed by your new sleep hours and new responsibilities. In these first weeks after delivery, try to take good care of yourself. It may take 4 to 6 weeks to feel like yourself again, and possibly longer if you had a . You will likely feel very tired for several weeks. Your days will be full of ups and downs, but lots of phu as well. FOLLOW-UP: Your follow-up care is a morris part of your treatment and safety. Follow-up with your OB doctor in 4-6 weeks or as specified by your physician. Be sure to make and go to all appointments, and call your doctor if you are having problems. It's also a good idea to know your test results and keep a list of the medicines you take. BLEEDING Vaginal bleeding will decrease in amount over the next few weeks but be present for as long as 8 weeks after delivery. Bleeding may pickling tank operator and then decrease again around 7-10 days . Use pads instead of tampons for the bloody flow that may last as long as 2 weeks. You will notice that as your activity increases, your flow may increase. Call your doctor if you are saturating one maxi pad in an hour & passing large clots for 3 hours or more. ACTIVITY NO SEXUAL activity for 6 weeks or until advised by your doctor. Nothing in the vagina for 6 weeks: e.g.) intercourse, tampons, or douching. Showering is okay; NO tub baths, swimming, or hot tubs for 6 weeks. Gradually increase your activity. Resume exercise regimen only after advice by your doctor. Avoid lifting anything heavier than your baby or a gallon of milk for six weeks. Avoid driving 1 week for vaginal delivery and 2 weeks for section, or longer if you are on prescription pain medicine unless otherwise instructed by your doctor. Rise slowly from a lying to sitting and then a standing position. Climb stairs carefully. Use caution when carrying your baby up and down the stairs. You may feel tired or have a lack of energy. Nap when baby naps to catch up on sleep. You may continue your vitamin to replenish nutrients post delivery. EMOTIONS You may feel graham, sad, teary, & overwhelmed for the first 2 weeks ; however, feelings of post depression may occur any time within the first year after delivery. Contact your OB provider if you feel you may be showing signs of depression, or have thoughts of harming yourself or your infant. If will not stop crying, contact another adult for help or place in their crib on their back and take a break. NEVER shake your . WOUND CARE For Vaginal Delivery: Shower daily, and cleanse your perineum (bottom) with mild soap from front to Back. Use the plastic squirt bottle until bleeding stops each time you use the restroom instead of wiping with toilet paper. Ease soreness of hemorrhoids and the area between your vagina and rectum with ice compresses or witch theodore pads. If used, stitches will dissolve in 4-6 weeks on their own. You may use a sitz bath or soak in a clean tub with drain open and water running for comfort. Kegel exercises will help restore bladder control. To do these tighten your muscles as if you were stopping your urine flow. Hold for a few seconds and then relax. Do these throughout the day. For Section Delivery: Keep your incision clean and dry. If you had steri-strips you may remove these once they start peeling off. If you have adolfo they need to be removed 3-10 days after delivery. If you have steri-strips, remove after 10-14 days. Do not wear clothing that irritates the incision line. If your incision in in a crease that is not dry, use a hair-dryer to dry the area 3 times a day. If you develop fever, shaking chills, redness, swelling, drainage or discharge from your wound, or if your wound looks like it's coming apart call your doctor immediately. For Tubal Ligation: Remove dressing 3 days after being discharged from the hospital. If you develop fever, shaking chills, redness, swelling, drainage or discharge from your wound, or if your wound looks like it's coming apart call your doctor immediately. BREAST CARE If you develop a warm, red, tender area on your breast or develop a fever contact your doctor. For moms: If you become engorged, feeding may be more difficult or painful for 1-2 days. You may find it helpful to hand express some milk so that the infant can latch on more easily or ease soreness with wet, warm washcloths. While , continue to take your vitamins as directed by your doctor. For non- moms: You may apply ice packs to your breasts over you bra for twenty minutes at a time for comfort. Cabbage leaves may be applied to breasts, replace when wilted. Avoid stimulation to your breasts, when showering allow the water to strike your back not your breasts. Do not express milk or your body will make more. Wear a good fitting bra until your milk dries, such as a sports bra. DIET & CONSTIPATION Eat a well balanced diet focusing on foods high in fiber and protein such as: whole grain cereals and breads, fruits and vegetables and legumes (eg, beans, lentils) Drink 8-10 glasses of fluids daily, especially water. To avoid constipation you may take a mild stpw-dxs-yvrhkwz stool softener (such as colace) as recommended by your doctor. SWELLING Try to keep your legs elevated when you are sitting or lying down. Stay hydrated and take walks. BABY Babies sleep safest on their back in a crib without bumpers, blankets or stuffed animals. DO NOT sleep with your baby in your bed or the couch. DO NOT expose baby to smoke, this can increase risks of asthma and sudden syndrome. If you or someone around baby smokes have them change their shirt and wash any facial hair before holding baby. Do not smoke inside the house and change the ventilation filters in the house before bringing baby home. WHEN TO CALL THE DOCTOR Signs of infection, including fever (101oF) and chills. Increased bleeding: soaking more than one sanitary pad an hour. Wounds that become red, swollen or drain pus. Vaginal discharge that smells foul. Headaches that lasts several hours and will not go away even with headache medications. Visual changes that last several hours and will not go away. Significant pain immediately below your rib cage. New pain, swelling, or tenderness in your legs Pain that you can't control with the medications you've been given. Pain, burning, urgency or frequency of urination, or persistent bleeding in the urine. Cough, shortness of breath, or chest pain. Depression, suicidal thoughts, or feelings of harming your baby. Breasts that are hot, red and accompanied by fever. Any cracking or bleeding from the nipple or areola (the dark-colored area of the breast). In case of an emergency, call 911 immediately. If you are Covid-19 positive or a Person Under Investigation (PUI) [id number] transmission of COVID-19 during is unlikely, but after a baby is susceptible to mvsqna-uq-qxtfkr spread. After your baby is born, your health care provider may recommend you not hold your baby and/or that you stay in a separate room from your baby until you get better. If you and your baby are not , wear a facemask at all times and wash your hands thoroughly before touching, holding or feeding your baby. Baby Care & Feeding has many benefits for you and your baby and is the best food for your baby. From what experts know so far, COVID-19 has not been found in breastmilk. Having a healthy adult who can assist with baby care until you get better is important, you may want to have a healthy adult feed your baby your expressed breast milk or formula if you chose to not breastfeed. You may use a breast pump to express your breast milk. Wear a face mask, wash your breasts, then wash your hands thoroughly before touching the breast pump and bottle parts. Clean all pump parts after each use. If you choose to breastfeed from your breast, wear a face mask, wash your breasts, wash your hands thoroughly before feeding your baby. These could be signs that your COVID-19 symptoms are worsening and you may need emergency care: You are severely dizzy or lightheaded. You are confused or can't think clearly. Your face and lips have a blue color. You are unable to respond to others or are very hard to wake up. Prevention steps for People with confirmed or suspected COVID-19 (including persons under investigation) who do not need to be hospitalized AND People with confirmed COVID-19 who were hospitalized and determined to be medically stable to go home Your healthcare provider and public health staff will evaluate whe ther you can be cared for at home. If it is determined that you do not need to be hospitalized and can be isolated at home, you will be monitored by staff from your local or state health department. You should follow the prevention steps below until a healthcare provider or local or state health department says you can return to your normal activities. Stay home except to get medical care People who are mildly ill with COVID-19 are able to isolate at home during their illness. You should restrict activities outside your home, except for getting medical care. Do not go to work, school, or public areas. Avoid using public transportation, ride-sharing, or taxis. Separate yourself from other people and animals in your home People: As much as possible, you should stay in a specific room and away from other people in your home. Also, you should use a separate bathroom, if available. Animals: You should restrict contact with pets and other animals while you are sick with COVID-19, just like you would around other people. Although there have not been reports of pets or other animals becoming sick with COVID-19, it is still recommended that people sick with COVID-19 limit contact with animals until more information is known about the virus. When possible, have another member of your household care for your animals while you are sick. If you are sick with COVID-19, avoid contact with your pet, including petting, snuggling, being kissed or licked, and sharing food. If you must care for your pet or be around animals while you are sick, wash your hands before and after you interact with pets and wear a facemask. Call ahead before visiting your doctor If you have a medical appointment, call the healthcare provider and tell them that you have or may have COVID-19. This will help the healthcare provider's office take steps to keep other people from getting infected or exposed. Wear a facemask You should wear a facemask when you are around other people (e.g., sharing a room or vehicle) or pets and before you enter a healthcare provider's office. If you are not able to wear a facemask (for example, because it causes trouble breathing), then people who live with you should not stay in the same room with you, or they should wear a facemask if they enter your room. Cover your coughs and sneezes Cover your mouth and nose with a tissue when you cough or sneeze. Throw used tissues in a lined trash can. Immediately wash your hands with soap and water for at least 20 seconds or, if soap and water are not available, clean your hands with an alcohol-based hand museum registrar that contains at least 60% alcohol. Clean your hands often Wash your hands often with soap and water for at least 20 seconds, especially after blowing your nose, coughing, or sneezing; going to the bathroom; and before eating or preparing food. If soap and water are not readily available, use an alcohol-based hand museum registrar with at least 60% alcohol, covering all surfaces of your hands and rubbing them together until they feel dry. Soap and water are the best option if hands are visibly dirty. Avoid touching your eyes, nose, and mouth with unwashed hands. Avoid sharing personal household items You should not share dishes, drinking glasses, cups, eating utensils, towels, or bedding with other people or pets in your home. After using these items, they should be washed thoroughly with soap and water. Clean all high-touch surfaces everyday High touch surfaces include counters, tabletops, doorknobs, bathroom fixtures, toilets, phones, keyboards, tablets, and bedside tables. Also, clean any surfaces that may have blood, stool, or body fluids on them. Use a household cleaning spray or wipe, according to the label instructions. Labels contain instructions for safe and effective use of the cleaning product including precautions you should take when applying the product, such as wearing gloves and making sure you have good ventilation during use of the product. Monitor your symptoms Seek prompt medical attention if your illness is worsening (e.g., difficulty breathing). Before seeking care, call your healthcare provider and tell them that you have, or are being evaluated for, COVID-19. Put on a facemask before you enter the facility. These steps will help the healthcare provider's office to keep other people in the office or waiting room from getting infected or exposed. Ask your healthcare provider to call the local or state health department. Persons who are placed under active monitoring or facilitated self-monitoring should follow instructions provided by their local health department or occupational health professionals, as appropriate. When working with your local health department check their available hours. If you have a medical emergency and need to call 911, notify the dispatch personnel that you have, or are being evaluated for COVID-19. If possible, put on a facemask before emergency medical services arrive. Discontinuing home isolation Patients with confirmed COVID-19 should remain under home isolation precautions until the risk of secondary transmission to others is thought to be low. The decision to discontinue home isolation precautions should be made on a gyal-za-rdqq basis, in consultation with healthcare providers and state and local health departments. Information on COVID-19 for ALL patients Call your provider before your next appointment if you develop any of the following symptoms: fever, cough, fatigue, anorexia, shortness of breath, sputum production, and muscle pains. Headache, confusion, rhinorrhea, sore throat, hemoptysis, vomiting, and diarrhea have been reported but are less common. Some persons with COVID-19 have experienced gastrointestinal symptoms such as diarrhea and nausea prior to developing fever and lower respiratory tract signs and symptoms. Ways to [place] with Anxiety & Stress It is normal to feel anxious or worried about COVID-19. You might feel sad about canceling celebrations and staying away from family and friends. Keep in mind that most people do not get severely ill from COVID-19. It is important to have a plan in case you get sick to prevent spreading the disease to others including an Advanced Care Plan (communicating and documenting your desired health care plan with family and healthcare team). You can take care of yourself by: o Taking a break from watching the news o Take deep breaths, stretch or meditate o Getting exercise, eating healthy foods, and drinking plenty of water o Finding activities you can enjoy inside your home o Staying in touch with your family and friends. Tell your partner, family, and friends how you are feeling. Advance Care Planning People with COVID-19 may have no symptoms, mild symptoms, such as fever, cough, and shortness of breath or they may have more severe illness, developing severe and fatal pneumonia. As a result, Advance Care Planning with attention to naming a health care decision maker (someone you trust to make healthcare decisions for you if you could not speak for yourself) and sharing other health care preferences is important BEFORE a possible health crisis. Please contact your Primary Care Provider to discuss Advance Care Planning. LEARNING ABOUT THE CORONAVIRUS (COVID-19): Coronavirus (COVID-19): Overview What is coronavirus (COVID-19)? The coronavirus disease (COVID-19) is caused by a virus. It is an illness that was first found in [facility], in May 2019. It has since spread worldwide. The virus can cause fever, cough, and trouble breathing. In severe cases, it can cause pneumonia and make it hard to breathe without help. It can cause . Coronaviruses are a large group of viruses. They cause the common cold. They also cause more serious illnesses like [place] respiratory syndrome (MERS) and severe acute respiratory syndrome (SARS). COVID-19 is caused by a novel coronavirus. That means it's a new type that has not been seen in people before. This virus spreads omtguh-kc-asrjnv through droplets from coughing and sneezing. It can also spread when you are close to someone who is infected. And it can spread when you touch something that has the virus on it, such as a doorknob or a tabletop. What can you do to protect yourself from coronavirus (COVID-19)? The best way to protect yourself from getting sick is to: Avoid areas where there is an outbreak. Avoid contact with people who may be infected. Wash your hands often with soap or alcohol-based hand sanitizers. Avoid crowds and try to stay at least 6 feet away from other people. Wash your hands often, especially after you cough or sneeze. Use soap and water, and scrub for at least 20 seconds. If soap and water aren't available, use an alcohol-based hand museum registrar. Call 911 anytime you think you may need emergency care. For example, call if: You have severe trouble breathing. (You can't talk at all.) You have constant chest pain or pressure. You are severely dizzy or lightheaded. You are confused or can't think clearly. Your face and lips have a blue color. You pass out (lose consciousness) or are very hard to wake up. Call your doctor now if you develop symptoms such as: Shortness of breath. Fever. Cough. If you need to get care, call ahead to the doctor's office for instructions before you go. Make sure you wear a face mask, if you have one, to prevent exposing other people to the virus. Where can you get the latest information? The following health organizations are tracking and studying this virus. Their websites contain the most up-to-date information. You'll also learn what to do if you think you may have been exposed to the virus. [place]. Centers for Disease Control and Prevention (CDC): The CDC provides updated news about the disease and travel advice. The website also tells you how to prevent the spread of infection. www.cdc.gov World Health Organization (WHO): WHO offers information about the virus outbreaks. WHO also has travel advice. www.who.int Current as of: September 29, 2019 Content Version: 12.4 [employer]. Care instructions adapted under license by your healthcare professional. If you have questions about a medical condition or this instruction, always ask your healthcare professional. [employer] disclaims any warranty or liability for your use of this information. General Recommendations for Routine Cleaning and Disinfection of Households Community members can practice routine cleaning of frequently touched surfaces (for example: tables, doorknobs, light switches, handles, desks, toilets, faucets, sinks) with household supply chain director and EPA-registered disinfectants that are appropriate for the surface, following label instructions. Labels contain instructions for safe and effective use of the cleaning product including precautions you should take when applying the product, such as wearing gloves and making sure you have good ventilation during use of the product. These guidelines are focused on household settings and are meant for the general public. Cleaning refers to the removal of germs, dirt, and impurities from surfaces. Cleaning does not kill germs, but by removing them, it lowers their numbers and the risk of spreading infection. Disinfecting refers to using chemicals to kill germs on surfaces. This process does not necessarily clean dirty surfaces or remove germs, but by killing germs on a surface after cleaning, it can further lower the risk of spreading infection. General Recommendations for Cleaning and Disinfection of Households with People Isolated in Home Care - Confirmed or suspected COVID 19 Household members should educate themselves about COVID-19 symptoms and preventing the spread of COVID-19 in homes. Clean and disinfect high-touch surfaces daily in household common areas (e.g. tables, hard-backed chairs, doorknobs, light switches, remotes, handles, desks, toilets, sinks) o In the bedroom/bathroom dedicated for an ill person: consider reducing cleaning frequency to as-needed (e.g., soiled items and surfaces) to avoid unnecessary contact with the ill person. - As much as possible, an ill person should stay in a specific room and away from other people in their home. - The caregiver can provide personal cleaning supplies for an ill person's room and bathroom, unless the room is occupied by child or another person for whom such supplies would not be appropriate. These supplies include tissues, paper towels, supply chain director and EPA-registered disinfectants (see list link at [facility] website). - If a separate bathroom is not available, the bathroom should be cleaned and disinfected after each use by an ill person. If this is not possible, the caregiver should wait as long as practical after use by an ill person to clean and disinfect the high-touch surfaces. How to clean and disinfect: Hard Surfaces Wear disposable gloves when cleaning and disinfecting surfaces. Gloves should be discarded after each cleaning. If reusable gloves are used, those gloves should be dedicated for cleaning and disinfection of surfaces for COVID-19 and should not be used for other purposes. Consult the electroencephalographic technician's instructions for cleaning and disinfection products used. Clean hands immediately after gloves are removed. If surfaces are dirty, they should be cleaned using a detergent or soap and water prior to disinfection. For disinfection, diluted household bleach solutions, alcohol solutions with at least 70% alcohol, and most common EPA-registered household disinfectants should be effective. o Diluted household bleach solutions can be used if appropriate for the surface. Follow electroencephalographic technician's instructions for application and proper ventilation. Check to ensure the product is not past its expiration date. Never mix household bleach with ammonia or any other cleanser. Unexpired household bleach will be effective against coronaviruses when properly diluted. - Prepare a bleach solution by mixing: - 5 tablespoons (1/3rd cup) bleach per gallon of water or - 4 teaspoons bleach per quart of water o Products with EPA-approved emerging viral pathogens [facility] are expected to be effective against COVID-19 based on data for harder to kill viruses. Follow the electroencephalographic technician's instructions for all cleaning and disinfection products (e.g., concentration, application method and contact time, etc.). Soft (porous) surfaces such as carpeted floor, rugs, and drapes Remove visible contamination if present and clean with appropriate supply chain director indicated for use on these surfaces. After cleaning: Launder items as appropriate in accordance with the electroencephalographic technician's instructions. If possible, launder items using the warmest appropriate water setting for the items and dry items completely, or Clothing, towels, linens and other items that go in the laundry Wear disposable gloves when handling dirty laundry from an ill person and then discard after each use. If using reusable gloves, those gloves should be dedicated for cleaning and disinfection of surfaces for COVID-19 and should not be used for other household purposes. Clean hands immediately after gloves are removed. o If no gloves are used when handling dirty laundry, be sure to wash hands afterwards. o If possible, do not shake dirty laundry. This will minimize the possibility of dispersing virus through the air. o Launder items as appropriate in accordance with the electroencephalographic technician's instructions. If possible, launder items using the warmest appropriate water setting for the items and dry items completely. Dirty laundry from an ill person can be washed with other people's items. o Clean and disinfect clothes hampers according to guidance above for surfaces. If possible, consider placing a baggage security checker that is either disposable (can be thrown away) or can be laundered. [facility] has a list of EPA approved cleaning products on their website - https://www.cdc.gov/coronavirus/ 2019-ncov/community/home/cleanin g-disinfection.html https://www.Stylehive.co m/Upked-Yxvjhvqnxwr-Llltwxso-Pro ducts-List.pdf documented [facility] encounter [facility] Work Phone: Evaluation note Note Date & Type Note Facility documented in this encounter [facility] Work Phone: Evaluation note Note Date & Type Note Facility documented in this encounter [facility] Reason for referral (narrative) Diagnostic Procedure Only (Urgent) - Closed Note Date & Type Note Facility Referral ID Status Reason Start Date Expiration Date V isits Requested Visits Authorized [id number] Closed Auto-Generate d Referral 11/26/2022 12/26/2023 1 1 [facility] Summary Purpose Family History No Family History Records FoundNo Family History Records FoundNo Family History Records FoundNo Family History Records Found Advance Directives Latest Code Status on File Code Status Date Activated Date Inactivated Comments Full Code 03/29/2021 4:19 PM Full Code 03/29/2021 7:12 AM 03/29/2021 4:18 PM Full Code 03/16/2021 8:44 PM 03/29/2021 7:12 AM Additional Source Comments INFORMATION SOURCE (unrecogn ized section and content) DATE CREATED AUTHOR AUTHOR'S ORGANIZ ATION 01/26/2020 [facility] ([place]) DATE CREATED AUTHOR AUTHOR'S ORGANIZ ATION 04/15/2021 [facility] DATE CREATED AUTHOR AUTHOR'S ORGANIZ ATION 12/06/2022 [facility] Reason for Visit (unrecogniz ed section and content) Reason Comments Hand Pain left x 2 days, anna en Ordered Prescriptions (unrec ognized section and content) Scheduled Active and Recently Administ ered Medications (unrecognized section and content) Continuous Medication Order 03/30/2021 03/31/2021 04/01/2021 magnesium sulfate (44886 mg/500mL infusion) (CANCELED) 2,000 mg/hr (50 mL/hr), IntraVENous, at 50 mL/hr, CONTINUOUS, Starting on Amairani 03/29/21 at 1645, For 18 hours 0448 (New Bag - Provider: Van Moreno, RN)1045 (Stopped - Provider: Colleen Mari RN) PRN Medication Order 03/30/2021 03/31/2021 04/01/2021 0.9 % sodium chloride infusion 25 mL, IntraVENous, at 100 mL/hr, PRN, If patient receiving piggyback infusions without ordered maintenance IV fluids or with frequent/long duration piggyback infusions, Starting on Amairani 03/29/21 at 1618, Administer at the same rate as the piggyback being infused., acetaminophen (TYLENOL) tablet 650 mg 650 mg, Oral, EVERY 6 HOURS PRN, Pain Mild (1-3), Starting on Amairani 03/29/21 at 1618, Maximum dose of acetaminophen is 4000 mg from all sources in 24 hours., 2050 (Given - Provider: Trina Hunter RN) 0953 (Given - Provider: Trina Moralez, HUDSON)1615 (Given - Provider: Trina Moralez, HUDSON)2357 (Given - Provider: Van Moreno RN) 0830 (Given - Provider: Trina Moralez, HUDSON)1604 (Given - Provider: Trina Moralez, RN) butalbital-acetaminophen- caffeine (FIORICET, ESGIC) per tablet 1 tablet 1 tablet, Oral, EVERY 4 HOURS PRN, Headaches, Starting on 03/17/21 at 1421, Maximum dose of acetaminophen is 4000 mg from all sources in 24 hours. calcium carbonate (TUMS) chewable tablet 500 mg 500 mg, Oral, 3 TIMES DAILY PRN, Heartburn, Starting on 03/27/21 at 1612, Use as 1st line treatment diphenhydrAMINE (BENADRYL) injection 25 mg 25 mg, IntraVENous, EVERY 6 HOURS PRN, Itching, Starting on Fri03/29/21 at 1157, 0021 (Given - Provider: Van Moreno RN) docusate sodium (COLACE) capsule 100 mg 100 mg, Oral, 2 TIMES DAILY PRN, Constipation, Starting on Fri03/29/21 at 1618, Do not crush or break., 0957 (Not Given - Provider: Trina Moralez RN - Reason: Patient/family refused) famotidine (PEPCID) injection 20 mg 20 mg, IntraVENous, 2 TIMES DAILY PRN, heart burn, Starting on Fri03/27/21 at 1612, Administer over 2 minutes. HYDROmorphone (DILAUDID) injection 0.25 mg(Linked Group 1) 0.25 mg, IntraVENous, EVERY 3 HOURS PRN, Pain Moderate (4-6), Starting on Fri03/29/21 at 2300, If oral and IV narcotics ordered, use oral first and only use IV if oral is ineffective or cannot take oral. Do Not give oral and IV within 1 hour of each other unless specifically ordered., HYDROmorphone (DILAUDID) injection 0.5 mg(Linked Group 1) 0.5 mg, IntraVENous, EVERY 3 HOURS PRN, Pain Severe (7-10), Starting on Fri03/29/21 at 2300, If oral and IV narcotics ordered, use oral first and only use IV if oral is ineffective or cannot take oral. Do Not give oral and IV within 1 hour of each other unless specifically ordered., lansinoh lanolin ointment Topical, EVERY 1 HOUR PRN, Dry Skin, nipple discomfort, Starting on Fri03/29/21 at 1618, nalbuphine (NUBAIN) injection 5 mg 5 mg, IntraVENous, EVERY 4 HOURS PRN, Other, Itching not relieved by benadryl, Starting on Fri03/29/21 at 1157, Do not administer to patients with current narcotic addiction., naloxone (NARCAN) injection 0.4 mg 0.4 mg, IntraVENous, PRN, Opioid Reversal, Starting on Fri03/29/21 at 1157, PRN if respiratory rate is < 6/min or patient is difficult to arouse. Mix 9 mL of sodium chloride 0.9% with 0.4 mg (1 mL) of naloxone (NARCAN) in 10 mL syringe. (Note: dilution is 0.04 mg/mL) Give 0.08 mg (2 mL of special dilution), slow IV push, repeat up to 0.4 mg (10 mL) or until patient is responsive to physical stimulation and is able to take deep breaths. Continue to observe, if no response within 3 minutes of administration of 0.4 mg (10 mL) total, repeat dose (0.4 mg as administered previously) and notify physician STAT., ondansetron (ZOFRAN) injection 4 mg 4 mg, IntraVENous, EVERY 6 HOURS PRN, Nausea, Starting on Amairani 03/29/21 at 1618, oxyCODONE (ROXICODONE) immediate release tablet 10 mg(Linked Group 2) 10 mg, Oral, EVERY 4 HOURS PRN, Pain Severe (7-10), Starting on Amairani 03/29/21 at 2300, oxyCODONE (ROXICODONE) immediate release tablet 5 mg(Linked Group 2) 5 mg, Oral, EVERY 4 HOURS PRN, Pain Moderate (4-6), Starting on Amairani 03/29/21 at 2300, simethicone (MYLICON) chewable tablet 80 mg 80 mg, Oral, EVERY 6 HOURS PRN, Cramping, Flatulence, Starting on Amairani 03/29/21 at 1618, sodium chloride flush 0.9 % injection 10 mL 10 mL, IntraVENous, PRN, Line Care, Starting on Fri03/29/21 at 1618, After every IV line use, Linked Groups Order Group 1: HYDROmorphone (DILAUDID) injection 0.25 mgJump to med 0.25 mg, IntraVENous, EVERY 3 HOURS PRN, Pain Moderate (4-6), Starting on Amairani 03/29/21 at 2300
If oral and IV narcotics ordered, use oral first and only use IV if oral is ineffective or cannot take oral. Do Not give oral and IV within 1 hour of each other unless specifically ordered.
Or HYDROmorphone (DILAUDID) injection 0.5 mgJump to med 0.5 mg, IntraVENous, EVERY 3 HOURS PRN, Pain Severe (7-10), Starting on Amairani 03/29/21 at 2300
If oral and IV narcotics ordered, use oral first and only use IV if oral is ineffective or cannot take oral. Do Not give oral and IV within 1 hour of each other unless specifically ordered.
Group 2: oxyCODONE (ROXICODONE) immediate release tablet 5 mgJump to med 5 mg, Oral, EVERY 4 HOURS PRN, Pain Moderate (4-6), Starting on Amairani 03/29/21 at 2300, Or oxyCODONE (ROXICODONE) immediate release tablet 10 mgJump to med 10 mg, Oral, EVERY 4 HOURS PRN, Pain Severe (7-10), Starting on Amairani 03/29/21 at 2300, Source Comments (unrecognize d section and content) In the event this informatio n is protected by the Federal Confidentiality of Alcohol and Drug Abuse Patient Records regulations: The Federal rules restrict any use of the information to criminally investigate or prosecute any alcohol or drug abuse patient.[facility] FOR RECORDS PERTAINING TO PATIENTS WHO ARE OR HAVE BEEN ENROLLED IN A CHEMICAL DEPENDENCY/SUBSTANCEABUSE PROGRAM, SOME INFORMATION MAY BE OMITTED. This clinical summary was aggregated from multiple sources. Caution should be exercised in using it in the provision of clinical care. This summary normalizes information from multiple sources, and as a consequence, information in this document may materially change the coding, format and clinical context of patient data. In addition, data may be omitted in some cases. CLINICAL DECISIONS SHOULD BE BASED ON THE PRIMARY CLINICAL RECORDS. [facility] [employer] [facility]. provides no warranty or guarantee of the accuracy or completeness of information in this document.
[2023-06-27 10:54] LABS: AST(SGOT) 15 U/L (15-37); Alanine Aminotransfer ALT/SGPT 19 U/L (13-56); Albumin, Serum 3.8 g/dL (3.2-5.0); Alkaline Phosphatase 80 U/L (45-117); Anion Gap 6 (5-15); BUN 7 mg/dL (7-18); BUN/Creat Ratio 9.2 RATIO (10-20); Bilirubin, Direct 0.08 mg/dL (0.00-0.30); Calcium,Total 8.6 mg/dL (8.5-10.1); Chloride 105 mmol/L (98-107); Creatinine, Serum 0.76 mg/dL (0.55-1.02); EST Glomerular Filtration Rate 90 mL/min (>60); Est Glom Filt Rate - Afr Amer 109 mL/min (>60); Estimated Creatinine Clearance 80.16 ml/min; Globulin 4.7 g/dL (2.2-4.2); Glucose 89 mg/dL (74-106); Lipase 22 U/L (13-75); Potassium 3.5 mmol/L (3.5-5.1); Protein, Total 8.5 g/dL (6.4-8.2); Sodium Level 139 mmol/L (136-145)
[2023-06-27 11:33] LABS: Bacteria 0 SEEN /hpf (None Seen); Mucous, Urine 0 SEEN /hpf (<or=2+); Red Blood Cells-Urine 0 SEEN /hpf (0-5); White Blood Cells 0 SEEN /hpf (0-5)
[2023-06-27 11:42] LABS: Color, Urine Straw (Yellow); Glucose, Dipstick Normal (Normal); Ketone-Dipstick 15 mg/dl (Negative); Leukocyte Esterase-Dipstick 25 /ul (Negative); Nitrite-Dipstick Negative (Negative); Occult Blood-Urine Negative /ul (Negative); Protein-Dipstick Negative (Negative); Specific Gravity, Urine 1.005 (1.002-1.030); Urine Bilirubin Dipstick Negative (Negative); Urine Clarity Clear (Clear); Urine Urobilinogen Normal (Normal)
[2023-06-27 11:47] LABS: Squamous Epithelial Cells - UA 0-5 SEEN /hpf (5-10)
[2023-06-27 12:00] VITALS: BP 145/87; PULSE 74; RESP 16; O2SAT 95
[2023-07-01 19:06] LABS: Lamotrigine (Lamictal) Level < 1.0 ug/mL (2.0-20.0)
== END 2023-06-27 12:38 | disposition home or self-care (01) ==
PROVIDERS: Emergency Provider Emergency Medicine; Visit Provider Emergency Medicine
DX: K52.9 Noninfective gastroenteritis and colitis, unspecified (principal); G40.909 Epilepsy, unspecified, not intractable, without status epilepticus; R10.9 Unspecified abdominal pain; Z79.899 Other long term (current) drug therapy
CPT/HCPCS: 76705; 80048; 80076; 81001; 82542; 83690; 84703; 85025; 87428; 96361; 96374; 99283; J7030; J2405

== ENCOUNTER 2023-09-13 14:22 | Emergency (ER) | payer BC, SELFPAY ==
[2023-09-13 14:22] VITALS: O2SAT 97
[2023-09-13 14:23] VITALS: BP 153/112; PULSE 102; RESP 20; TEMP 37.3; O2SAT 98; BMI 32.8
[2023-09-13 14:25] VITALS: BP 149/104; PULSE 105; RESP 20; O2SAT 98
--- NOTE | 2023-09-13 14:38 | EX.ED.VIS.UR ---
HPI HPI - URI History of Present Illness Chief Complaint: Cough Informant: patient Onset/Context/Timing Onset: Weeks (1-2) Context: Gradual Onset Timing: Continuous Quality: Aching Location: Chest and back Worsened by: - (Nothing) Relieved by: - (Nothing) Associated Symptoms Associated Symptoms: Positive for Nasal Congestion, Headache, Sinus Pressure, Myalgias, Nausea, Vomiting, Chest Pain and Productive Cough; Negative for Diarrhea, Shortness of Breath, Nonproductive cough or Hemoptysis Narrative Narrative: Patient presents with cough and upper respiratory congestion that has been constant for the past 1 to 2 weeks. Patient states it is getting progressively worse. Patient states she is coughing up some green sputum. Patient does states some pain in her chest and back that is worse with coughing. Patient admits to some nausea and vomiting. Patient also admits to some generalized bodyaches. Patient admits to headache and sinus pressure. Patient states she has had a fever up to 102 at home. ROS ROS ED Constitutional Constitutional ED: Reports fever(s); Denies chills Eyes Eyes: Denies blurry vision or change in vision ENT ENT ED: Reports rhinorrhea and sore throat Cardiovascular Cardiovascular: Reports chest pain; Denies palpitations Respiratory/Chest Respiratory/Chest: Reports cough and sputum; Denies dyspnea Gastrointestinal Gastrointestinal: Reports nausea and vomiting Genitourinary Genitourinary ED: Denies dysuria or hematuria Musculoskeletal Musculoskeletal: Reports back pain and myalgias; Denies neck pain Integumentary Denies abscess or rash Neurologic Neurologic: Denies headache(s) or weakness Allergic/Immunologic Allergic/Immunologic ED: Denies mouth swelling or urticaria [facility] Medical History (Updated 09/13/23 @ 16:[address] Ronnie Carroll, ) Epilepsy Home Medications lamotrigine 150 mg tablet (Lamictal) 150 mg PO BID 03/16/21 [History Last Taken 03/16/21 04:30] ondansetron 4 mg disintegrating tablet 4 mg PO Q6H PRN PRN Nausea #15 tabs 06/27/23 [Rx Last Taken Unknown] Allergy/AdvReac Type Severity Reaction Status Date / Time No Known Allergies Allergy Verified 09/13/23 14:23 Surgical History Hx of section Hx of ovarian cystectomy Hx of tubal ligation Social History Smoking Status: Never smoker EXAM Physical Exam Const Vital Signs: 09/13/23 14:23 09/13/23 14:25 09/13/23 14:53 Temperature 99.1 F Temperature Source Temporal Pulse Rate 102 H 105 H 85 Respiratory Rate 20 H 20 H 17 Respiratory Effort Respiratory Pattern Normal Blood Pressure 153/112 H 149/104 H Blood Pressure Mean 125 119 Pulse Ox 98 98 Oxygen Delivery Method Room Air Room Air 09/13/23 14:22 Temperature Temperature Source Pulse Rate Respiratory Rate Respiratory Effort Short of Breath Respiratory Pattern Blood Pressure Blood Pressure Mean Pulse Ox Oxygen Delivery Method Room Air Positive well nourished, well developed and obese General Appearance ED: well developed and NAD Nutritional Appearance: obese HEENT normocephalic and atraumatic Neck supple and no JVD Resp normal respiratory effort Auscultation: rhonchi left lower Cardio Rate: tachycardic Rhythm: regular rhythm GI non-tender and non-distended Palpation: soft Extremity normal to inspection and full ROM Neuro oriented x3, CN's II-XII intact bilaterally and no sensory deficits noted Sensorium / Orientation: alert Motor Exam: strength 5/5 throughout Psych mental status grossly normal MDM MDM MDM Narrative Medical decision making narrative: Differential diagnosis includes pneumonia, viral illness, upper respiratory infection, and bronchitis. Chest x-ray will be obtained to assess for pneumonia. COVID-19, influenza, and RSV PCR will be obtained to assess for viral illness. Radiography Diagnostic Testing: Clinical Impression(s) from Imaging Studies Chest X-Ray 09/13/23 14:44 IMPRESSION: Normal x-ray examination of the chest. Electronically Signed: Jcarlos Mercado MD at 15:37 EDT Reading Location ID and State: [facility] / [place] , Service support , [place] and lateral chest x-ray was obtained. There are 2 views. On my independent interpretation, lung cordoba are clear. There is normal cardiac silhouette. Bony thorax is normal. There is no acute process noted. Radiologist also interpreted the x-ray and agrees. Treatment and Re-Evaluation Narrative: Patient was given a DuoNeb aerosol here. Patient had minimal improvement with this. Patient was advised of her findings. Patient was advised that this is most likely a viral illness. Patient was instructed to continue drinking plenty of fluids. Patient was instructed to take Tylenol or ibuprofen as needed for any pain or fevers. Patient was instructed to follow-up with her primary care physician in 5 to 7 days. Patient understood and was agreeable with the plan. All questions were answered. Discharge Plan Triage Chief Complaint: Cough ED Provider: Ronnie Carroll Dx/Rx/DC Orders Clinical Impression: COVID-19, Viral upper respiratory tract infection Instructions: Coronavirus Disease 2019 (COVID-19): Caring for Yourself or Others, ED URI, Viral, No Abx (Adult) Prescriptions: No Action lamotrigine [Lamictal] 150 mg Tablet 150 mg PO BID ondansetron [ondansetron] 4 mg tablet,disintegrating 4 mg PO Q6H PRN PRN (Reason: Nausea) Qty: 15 0RF Primary Care Provider: Care Physician,No Primary Referrals: Karen Zuniga MD [Med Staff - [employer] Leader] - 5-7 Days Care Physician,No Primary [Primary Care Provider] - Disposition Disposition: Home, Self Care
--- NOTE | 2023-09-13 14:44 | RAD_ITS ---
STUDY: X-RAY CHEST REASON FOR EXAM: Female, 38 years old. Cough TECHNIQUE: PA and lateral views of the chest. COMPARISON: None. FINDINGS: The lungs are clear and expanded. There is no demonstrated pleural abnormality. Normal size heart. Normal mediastinum and teagan. Normal visualized pulmonary arteries. Normal visualized aortic arch and descending thoracic aorta. Normal visualized thoracic spine. Normal visualized ribs, clavicles, and shoulders. There is no demonstrated abnormality of the visualized soft tissue structures of the upper abdomen. RAD/Chest PA and Lateral IMPRESSION: Normal x-ray examination of the chest. Electronically Signed: Jcarlos Mercado MD at 15:37 EDT ,
--- OUTSIDE RECORDS SUMMARY | 2023-09-13 14:49 | XMS RPT_ITS | CCD ---
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 Role Phone Unavailable Primary Care Provider DARCIE Myers Referring Unavailable Medications Current Medications Medication Drug Class(es) Dates [...] sodium phosphate (CELESTONE) injection 12 mg Problems Active Problems Problem Classification Problem Date Documented Da te Episodic/Chronic Epilepsy; convulsions (2 sources) Seizure disorder; Translations: [Epilepsy, unspecified, not intractable, [...] wrist, hand and finger(s), initial encounter] Episodic Other upper respiratory infections (2 sources) Sore throat symptom; Translations: [Acute pharyngitis, unspecified] 08-11-2023 Episodic Past or Other Problems Problem Classification Problem Date Documented Da te Episodic/Chronic Other injuries and conditions due to external causes (1 source) Unspecified injury of left wrist, hand and finger(s), initial encounter; Translations: [Injury of left hand, initial encounter] Onset: 11-26-2022 Episodic Results Test Name Value Interpretation Reference Range Facil ity Vital Signs Date Time Vital Sign Value Performing Clinician Facility 08-11-2023 18:43-0500 Body temperature 97.81 [degF] Krislyn Aberegg PA Work Phone: [facility] 08-11-2023 18:43-0500 Body weight 81.65 kg Krislyn Aberegg PA Work Phone: [facility] 08-11-2023 18:43-0500 Diastolic blood pressure 80 mm[Hg] Krislyn Aberegg PA Work Phone: [facility] 08-11-2023 18:43-0500 Heart rate 98 /min Krislyn Aberegg PA Work Phone: [facility] 08-11-2023 18:43-0500 Respiratory rate 16 /min Krislyn Aberegg PA Work Phone: [facility] 08-11-2023 18:43-0500 SaO2% (BldA) [Mass fraction] 100 % Krislyn Aberegg PA Work Phone: [facility] 08-11-2023 18:43-0500 Systolic blood pressure 122 mm[Hg] Krislyn Aberegg PA Work Phone: [facility] 11-26-2022 10:11-0400 Body temperature 97.81 [degF] [facility] SPONSORSHIP MANAGER.SUPERVISOR [employer] Work Phone: [facility] 11-26-2022 10:11-0400 Body weight 76.2 kg [facility] SPONSORSHIP MANAGER.SUPERVISOR [employer] Work Phone: [facility] 11-26-2022 10:11-0400 Diastolic blood pressure 82 mm[Hg] [facility] SPONSORSHIP MANAGER.SUPERVISOR [employer] Work Phone: [facility] 11-26-2022 10:11-0400 Heart rate 80 /min [facility] SPONSORSHIP MANAGER.SUPERVISOR [employer] Work Phone: [facility] 11-26-2022 10:11-0400 Respiratory rate 16 /min [facility] SPONSORSHIP MANAGER.SUPERVISOR [employer] Work Phone: [facility] 11-26-2022 10:11-0400 SaO2% (BldA) [Mass fraction] 98 % [facility] SPONSORSHIP MANAGER.SUPERVISOR [employer] Work Phone: [facility] 11-26-2022 10:11-0400 Systolic blood pressure 126 mm[Hg] [facility] SPONSORSHIP MANAGER.SUPERVISOR [employer] Work Phone: [facility] 04-01-2021 16:00-0400 Body temperature 98.29 [degF] Licha Samson MD [facility] Phone: [facility] Work Phone: 04-01-2021 16:00-0400 Diastolic blood pressure 87 mm[Hg] Licha Samson MD Work Phone: [facility] Work Phone: 04-01-2021 16:00-0400 Heart rate 78 /min Licha Samson MD Work Phone: [facility] Work Phone: 04-01-2021 16:00-0400 Respiratory rate 16 /min Licha Samson MD Work Phone: [facility] Work Phone: 04-01-2021 16:00-0400 SaO2% (BldA) [Mass fraction] 98 % Licha Samson MD Work Phone: [facility] Work Phone: 04-01-2021 16:00-0400 Systolic blood pressure 148 mm[Hg] Licha Samson MD Work Phone: [facility] Work Phone: 03-19-2021 12:20-0400 Body mass index (BMI) [Ratio] 34.84 kg/m2 Licha Samson MD [facility] Work Phone: 03-19-2021 12:20-0400 Body weight 86.41 kg Licha Samson MD Work Phone: [facility] Work Phone: 03-19-2021 10:01-0400 Body height 157.5 cm Licha Samson MD Work Phone: [facility] Work Phone: Encounters Encounter Date Encounter Type Care Provider Facility Start: 08-11-2023 End: 08-11-2023 [facility] Facility:[facility] Start: 08-11-2023 End: 08-11-2023 Patient encounter procedure Mishel PUENTE Work Phone: [facility] Procedures Date Procedure Procedure Detail Performing Clinician Start: 08-11-2023 STREP A MOLECULAR (POC) Mishel PUENTE Work Phone: Start: 03-30-2021 Blood count hemoglobin Norman R Hill DO Work Phone: Start: 03-29-2021 Comprehensive metabo lic panel Joana Gilliam DO Work Phone: Start: 03-29-2021 nonstress test Harris nnah Leila Maravillaerla DO Work Phone: Start: 03-28-2021 Antibody screen Licha llamas MD Work Phone: Start: 03-28-2021 Blood typing serologic abo Joana Gilliam DO Work Phone: Start: 03-28-2021 Comprehensive metabo lic panel Joana C Lamari DO Work Phone: Start: 03-27-2021 RADIOLOGY REPORT 3m Sca nning Start: 03-27-2021 End: 03-27-2021 biophysical profile w/o non-stress testing Vee Mi DO Work Phone: Start: 03-25-2021 Antibody screen Licha llamas MD Work Phone: Start: 03-25-2021 Blood typing serologic abo Vee Mi DO Work Phone: Start: 03-25-2021 Comprehensive metabo lic panel Vee Mi DO Work Phone: Start: 03-23-2021 Comprehensive metabo lic panel Millie Bailey MD Work Phone: Start: 03-22-2021 Antibody screen Licha llamas MD Work Phone: Start: 03-22-2021 Blood typing serologic abo Joana C Tawana DO Work Phone: Start: 03-20-2021 Ecg routine ecg w/le ast 12 lds w/i&r Vee Mi DO Work Phone: Start: 03-19-2021 Comprehensive metabo lic panel Joana C Lamari DO Work Phone: Start: 03-19-2021 Us preg uterus real time f/u trnsabdl per fetus Kush Louise DO Work Phone: Start: 03-19-2021 Antibody screen Licha llamas MD Work Phone: Start: 03-19-2021 Blood typing serologic abo Joana C Lamari DO Work Phone: Start: 03-17-2021 ADD ON [...] Work Phone: Start: 10-03-2020 ABO, EXTERNAL RESULT Hi storical Provider Start: 10-03-2020 HEPATITIS B, EXTERNA L RESULT Historical Provider Start: 10-03-2020 HEPATITIS C ANTIBODY , EXTERNAL RESULT Historical Provider Start: 10-03-2020 HIV, EXTERNAL RESULT Hi storical Provider Start: 10-03-2020 RH FACTOR, EXTERNAL RESULT Historical Provider Start: 10-03-2020 RPR, EXTERNAL RESULT Hi storical Provider Start: 10-03-2020 RUBELLA TITER, EXTER NAL RESULT Historical Provider Start: 09-19-2020 C. TRACHOMATIS, EXTE RNAL RESULT Historical Provider Start: 09-19-2020 N. GONORRHOEAE, EXTE RNAL RESULT Historical Provider Plan of Treatment Date Care Activity Detail Author Start: 03-23-2031 DTaP/Tdap/Td vaccine (2 - Td or Tdap) DTaP/Tdap/Td vaccine (2 - Td or Tdap) [facility] Work Phone: Start: 03-23-2031 Urine microalbumin profile DTaP,Tdap,Td Vaccine (2 - Td or Tdap) [facility] Start: 06-30-2023 Depression Assessment Depression Assessment [facility] Start: 02-28-2023 Influenza vaccination [facility] Start: 06-30-2022 DEPRESSION ASSESSMENT DEPRESSION ASSESSMENT [facility] Start: 03-29-2022 Creatinine measurement Creatinine monitoring [facility] Work Phone: Start: 03-29-2022 Potassium monitoring Potassium monitoring [facility] Work Phone: Start: 02-28-2021 Influenza vaccination Flu vaccine (#1) [facility] Work Phone: Start: 09-11-2015 HPV TESTING HPV TESTING [facility] Start: 09-11-2015 Screening for malignant neoplasm of cervix [facility] Start: 2006 PAP TESTING PAP TESTING [facility] Start: 2006 Screening for malignant neoplasm of cervix [facility] Start: 2004 Urine microalbumin profile DTAP,TDAP,TD (1 - Tdap) [facility] Start: 09-11-2003 HEPATITIS C SCREENING HEPATITIS C SCREENING [facility] Start: 09-11-2003 Hepatitis C screening Hepatitis C Screening [facility] Start: 09-11-2003 HIV SCREENING HIV SCREENING [facility] Start: 09-11-2003 HIV screening HIV Screening [facility] Start: 2000 HIV screening HIV screen [facility] Work Phone: Start: 1997 COVID-19 Vaccine (1) COVID-19 Vaccine (1) [facility] Work Phone: Start: 1986 Varicella vaccine (1 of 2 - 2-dose childhood series) Varicella vaccine (1 of 2 - 2-dose childhood series) [facility] Work Phone: Start: 03-13-1986 COVID-19 VACCINE (#1) COVID-19 VACCINE (#1) [facility] Start: 1985 HEPATITIS B (1 of 3 - 3-dose series) HEPATITIS B (1 of 3 - 3-dose series) [facility] Start: 1985 Hepatitis B Vaccine (1 of 3 - 3-dose series) Hepatitis B Vaccine (1 of 3 - 3-dose series) [facility] Start: 1985 Hepatitis C screening Hepatitis C screen [facility] Work Phone: Oxygen therapy [[facility] Data Set] Initiate Oxygen Therapy Protocol Respiratory Care Routine Daily until discontinued starting 03/29/2021 [facility] Work Phone: Immunizations Immunization Date Immunization Notes Care Provider Fa cility 03-23-2021 tetanus toxoid, reduced diphtheria toxoid, and acellular pertussis vaccine, adsorbed Licha Samson MD Work Phone: [facility] Work Phone: NEGATED: Highlighted row has not occurred!04-01-2021 measles, mumps and rubella virus vaccine Licha Samson MD Work Phone: [facility] Work Phone: NEGATED: Highlighted row has not occurred!04-01-2021 tetanus toxoid, reduced diphtheria toxoid, and acellular pertussis vaccine, adsorbed Licha Samson MD Work Phone: [facility] Work Phone: Payers Date Payer Category Payer Unknown [id number] 2022 Unknown [id number] 2022 Unknown [id number] Social History Date Type Detail Facility Start: 10-23-2010 End: 03-29-2021 Tobacco smoking status NHIS Never smoker [facility] Work Phone: Start: 10-23-2010 End: 03-29-2021 Tobacco use and exposure Never used [facility] Start: 03-29-2021 Alcohol intake Lifetime non-d luis (finding) [facility] Work Phone: Start: 03-16-2021 History SDOH Alcohol Frequency 1 [facility] Work Phone: Start: 1985 Sex Assigned At Not on file [facility] Work Phone: Exposure to SARS-CoV -2 (event) Not sure [facility] Start: 11-26-2022 End: 08-11-2023 Alcohol intake Current non-drinker of alcohol (finding) [facility] Start: 08-11-2023 History of Social function [facility] Start: 08-11-2023 Tobacco use panel [facility] Clinical Notes 03-29-2021 to 08-11-2023 Addendum Note - Mishel Velázquez PA - 08/11/2023 7:04 PM ESTMishel David PA - 08/11/2023 6:49 PM Marc Roberts APRN.CNP - 11/26/2022 10:17 AM EDTInstructions Note Date & Type Note Facility 08-11-2023 Note HNO ID: [id number] Author: MISHEL VELÁZQUEZ PA Service: ? Author Type: Physician Senior Accounting Clerk Type: Progress Notes Filed: 08/11/2023 19:04 Note Text: This note was created using [employer]. Subjective Armando Rosario is a 37 year old female. HPI 37-year-old female presents for sore throat, ear pain, cough. Patient has had a sore throat for the past few days. She has also had some ear pain, cough. No fevers. 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 No vomiting or diarrhea. Still able to eat and drink. No other complaint. PAST MEDICAL HISTORY Diagnosis Date Epilepsy (HCC) Heart murmur PAST SURGICAL HISTORY Procedure Laterality Date NONE ALLERGIES Patient has no known allergies. MEDICATIONS lamoTRIgine (LAMICTAL) 150 mg tablet Take 150 mg by mouth. LEVETIRACETAM (KEPPRA ORAL) Take 600 mg by mouth twice daily. (Patient not taking: Reported on 08/11/2023) OXCARBAZEPINE (TRILEPTAL ORAL) Take 1,000 mg by mouth twice daily. (Patient not taking: Reported on 08/11/2023) naproxen 500 mg ORAL tablet Take 1 tablet by mouth twice daily as needed. FOR PAIN. TAKE WITH FOOD. (Patient not taking: Reported on 08/11/2023) FAMILY HISTORY Problem Relation Age of Onset Diabetes Father Hypertension Mother Hypertension Father Hypertension Maternal Grandmother Hypertension Maternal Grandfather Diabetes Maternal Grandfather Cancer Maternal Grandfather of pancreatic cancer Diabetes Paternal Grandmother Social History Tobacco Use Smoking status: Never Smokeless tobacco: Never Substance Use Topics Alcohol use: No Drug use: No Review of Systems Constitutional: Negative for chills and fever. HENT: Positive for congestion, ear pain and sore throat. Respiratory: Negative for cough and shortness of breath. Cardiovascular: Negative for chest pain. Gastrointestinal: Negative for diarrhea and vomiting. Objective BP 122/80 Pulse 98 Temp 36.6 ?C (97.8 ?F) Resp 16 Wt 81.6 kg (180 lb) SpO2 100% Physical Exam Vitals and nursing note reviewed. Constitutional: General: She is not in acute distress. Appearance: Normal appearance. She is not toxic-appearing. HENT: Right Ear: Tympanic membrane and ear canal normal. Left Ear: Tympanic membrane and ear canal normal. Ears: Comments: Wax noted in both canals. TM normal. Nose: Nose normal. Mouth/Throat: Mouth: Mucous membranes are moist. Pharynx: Uvula midline. Posterior oropharyngeal erythema present. No oropharyngeal exudate. Tonsils: No tonsillar exudate or tonsillar abscesses. 1+ on the right. 1+ on the left. Eyes: Conjunctiva/sclera: Conjunctivae normal. Cardiovascular: Rate and Rhythm: Normal rate and regular rhythm. Pulmonary: Effort: Pulmonary effort is normal. Breath sounds: Normal breath sounds. Neurological: Mental Status: She is alert. Assessment and Plan ASSESSMENT/PLAN: 1. Sore throat - ICD9: 462, ICD10: J02.9 (primary diagnosis) - suspect viral - Group A strep molecular testing negative - Discussed supportive care treatment with fluids, rest and analgesia. - The patient may also use warm salt water gargles, throat lozenges and/or OTC throat spray as needed. - STREP A MOLECULAR (POC) 2. URI, acute - ICD9: 465.9, ICD10: J06.9 - Discussed viral etiology and rationale for treatment. - Symptomatic treatment with prn analgesia - Supportive care with fluids and rest - The patient may also use OTC cough and cold meds as needed. - COVID/FLU/RSV pending. Diagnosis and treatment plan were discussed and questions were answered to the patient's satisfaction. Pt acknowledged understanding of concepts and follow up plan. Specific signs and symptoms that would indicate the need for higher level of care were discussed in detail warranting prompt ER evaluation. KWAME Spaulding Addendum: patient declined viral swab upon us going to collect. [facility] 08-11-2023 Miscellaneous Notes Addended by: MISHEL VELÁZQUEZ on: 08/11/2023 07:04 PM Modules accepted: Orders documented in this encounter [facility] 08-11-2023 Instructions Mishel Velázquez PA - 08/11/2023 6:56 PM EST Rest, increase water intake Motrin or Tylenol as needed for fever or pain. Salt water gargles, chloraseptic spray or lozenges as needed for sore throat. Warm beverages, honey. Nasal saline spray as needed Cool mist humidifier at night A cold normally lasts 7-10 days. If your symptoms are lasting longer, develop fever, or worsening by that time instead of improving then return to clinic or follow up with PCP for re-evaluation. Tylenol (generic acetaminophen) 500 mg-2 tabs every 8 hrs. as needed for fever and aches Ibuprofen 600 mg (3-200mg tablets) every 6 hours -Mucinex (generic is fine) Guaifenesin 1200 mg twice daily to help with cough and to thin out mucus documented in this encounter [facility] 08-11-2023 History of Presen t illness Narrative This note was created using [employer]. Subjective Armando Rosario is a 37 year old female. HPI 37-year-old female presents for sore throat, ear pain, cough. Patient has had a sore throat for the past few days. She has also had some ear pain, cough. No fevers. 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 No vomiting or diarrhea. Still able to eat and drink. No other complaint. PAST MEDICAL HISTORY Diagnosis Date Epilepsy (HCC) Heart murmur PAST SURGICAL HISTORY Procedure Laterality Date NONE ALLERGIES Patient has no known allergies. MEDICATIONS lamoTRIgine (LAMICTAL) 150 mg tablet Take 150 mg by mouth. LEVETIRACETAM (KEPPRA ORAL) Take 600 mg by mouth twice daily. (Patient not taking: Reported on 08/11/2023) OXCARBAZEPINE (TRILEPTAL ORAL) Take 1,000 mg by mouth twice daily. (Patient not taking: Reported on 08/11/2023) naproxen 500 mg ORAL tablet Take 1 tablet by mouth twice daily as needed. FOR PAIN. TAKE WITH FOOD. (Patient not taking: Reported on 08/11/2023) FAMILY HISTORY Problem Relation Age of Onset Diabetes Father Hypertension Mother Hypertension Father Hypertension Maternal Grandmother Hypertension Maternal Grandfather Diabetes Maternal Grandfather Cancer Maternal Grandfather of pancreatic cancer Diabetes Paternal Grandmother Social History Tobacco Use Smoking status: Never Smokeless tobacco: Never Substance Use Topics Alcohol use: No Drug use: No Review of Systems Constitutional: Negative for chills and fever. HENT: Positive for congestion, ear pain and sore throat. Respiratory: Negative for cough and shortness of breath. Cardiovascular: Negative for chest pain. Gastrointestinal: Negative for diarrhea and vomiting. Objective BP 122/80 Pulse 98 Temp 36.6 C (97.8 F) Resp 16 Wt 81.6 kg (180 lb) SpO2 100% Physical Exam Vitals and nursing note reviewed. Constitutional: General: She is not in acute distress. Appearance: Normal appearance. She is not toxic-appearing. HENT: Right Ear: Tympanic membrane and ear canal normal. Left Ear: Tympanic membrane and ear canal normal. Ears: Comments: Wax noted in both canals. TM normal. Nose: Nose normal. Mouth/Throat: Mouth: Mucous membranes are moist. Pharynx: Uvula midline. Posterior oropharyngeal erythema present. No oropharyngeal exudate. Tonsils: No tonsillar exudate or tonsillar abscesses. 1+ on the right. 1+ on the left. Eyes: Conjunctiva/sclera: Conjunctivae normal. Cardiovascular: Rate and Rhythm: Normal rate and regular rhythm. Pulmonary: Effort: Pulmonary effort is normal. Breath sounds: Normal breath sounds. Neurological: Mental Status: She is alert. Assessment and Plan ASSESSMENT/PLAN: 1. Sore throat - ICD9: 462, ICD10: J02.9 (primary diagnosis) - suspect viral - Group A strep molecular testing negative - Discussed supportive care treatment with fluids, rest and analgesia. - The patient may also use warm salt water gargles, throat lozenges and/or OTC throat spray as needed. - STREP A MOLECULAR (POC) 2. URI, acute - ICD9: 465.9, ICD10: J06.9 - Discussed viral etiology and rationale for treatment. - Symptomatic treatment with prn analgesia - Supportive care with fluids and rest - The patient may also use OTC cough and cold meds as needed. - COVID/FLU/RSV pending. Diagnosis and treatment plan were discussed and questions were answered to the patient's satisfaction. Pt acknowledged understanding of concepts and follow up plan. Specific signs and symptoms that would indicate the need for higher level of care were discussed in detail warranting prompt ER evaluation. KWAME Spaulding Addendum: patient declined viral swab upon us going to collect. documented in this encounter [facility] 11-26-2022 Note HNO ID: [id number] Author: RT Jesenia(R) Service: Nuclear Medicine Author Type: Technologist Type: [...] RT Jesenia(R) November 26, 2022 10:57 AM [facility] 11-26-2022 Note HNO ID: [id number] Author: Darcie Roberts APRN.SUPERVISOR [employer] Service: ? Author Type: Nurse Practitioner Type: [...] of care. This note was generated using [employer] software. It may contain errors in wording, punctuation, or spelling. Darcie Roberts APRN.[facility] 11-26-2022 History of Presen t illness Narrative [...] of care. This note was generated using [employer] software. It may contain errors in wording, punctuation, or spelling. Darcie Roberts APRN.KRISTI documented in this encounter [facility] 04-01-2021 Note Department of Obstet rics and Gynecology [facility] Discharge Summary Admission on 03/16/2021 6:53 PM Armando Rosario is a 35 y.o. at 32w1d who presented as a transfer from [place] for superimposed preeclampsia with severe features based [...] Operations & Procedures: Date of delivery: 03/29/21 ([facility]) Procedure: Repeat with Right Tubal ligation (Left tube was absent) Anesthesia: Spinal anesthesia Delivery Complications:none EBL: 500 cc Pertinent Findings & Procedures: Information for the patient's : [place] Rosario [[id number]] female Weight: 3 lb 0.7 oz (1.38 kg) Apgars: Information for the patient's : [place] Rosario [[id number]] One Minute : 8 Five Minute : 9 Course: Uncomplicated : Live female infant, NICU due to prematurity Blood Type/Rh: A POS Antibody Screen: Antibody Screen Date Value Ref Range Status 03/28/2021 NEG NA Final Rubella: No results found for: RUBELLAIGG Contraception: Tubal ligation : yes VTE Prophylaxis: Prophylactic Dosing until Discharge Meds: Armando Rosario Home Medication Instructions ABHAY:[id number] Printed on:04/01/21 1212 Medication Information acetaminophen (TYLENOL) [...] Your Medications These medications were sent to [facility]/pharmacy #[id number] - [place], [place] - [address] - P [phone] - F [phone] [id number] [facility] [address] acetaminophen 500 MG tablet ibuprofen 600 MG [...] her physician if any of these occur. [facility] 04-01-2021 Hospital course Narrative Images from the original note were not included. Department of Obstetrics and Gynecology [facility] Discharge Summary Admission on 03/16/2021 6:53 PM Armando Rosario is a 35 y.o. at 32w1d who presented as a transfer from [place] for superimposed preeclampsia with severe features based [...] Operations & Procedures: Date of delivery: 03/29/21 ([facility]) Procedure: Repeat with Right Tubal ligation (Left tube was absent) Anesthesia: Spinal anesthesia Delivery Complications:none EBL: 500 cc Pertinent Findings & Procedures: Information for the patient's : [place] Rosario [[id number]] female Weight: 3 lb 0.7 oz (1.38 kg) Apgars: Information for the patient's : [place] Rosario [[id number]] One Minute : 8 Five Minute : 9 Course: Uncomplicated : Live female infant, NICU due to prematurity Blood Type/Rh: A POS Antibody Screen: Antibody Screen Date Value Ref Range Status 03/28/2021 NEG NA Final Rubella: No results found for: RUBELLAIGG Contraception: Tubal ligation : yes VTE Prophylaxis: Prophylactic Dosing until Discharge Meds: Armando Rosario Home Medication Instructions ABHAY:[id number] Printed on:04/01/21 1212 Medication Information acetaminophen (TYLENOL) [...] Your Medications These medications were sent to [facility]/pharmacy #[id number] - [place], [place] - [address] - P [phone] - F [phone] [address], [place] [address] acetaminophen 500 MG tablet ibuprofen 600 MG [...] documented in this encounter [facility] Work Phone: 04-01-2021 History of Presen t illness Narrative Images [...] Care - Doing well, VSS - Female - Both breast and bottle - Contraception: [...] with more than 50% of the total huqo-cw-jeom time of the visit in counseling/coordination of [...] Pain is controlled yes. Vital Signs: Vitals: 03/30/21 2054 03/30/21 2349 03/31/21 0005 03/31/21 0420 BP: 118/69 126/72 126/72 (!) 145/88 Pulse: 71 63 63 68 Resp: 22 22 20 Temp: 97.9 F (36.6 C) 98.2 F [...] Care - Doing well, VSS - Female - Both breast and bottle - Contraception: [...] with more than 50% of the total [id number]-[id number] time of the visit in counseling/coordination of [...] Disposition: Continue current care Provider's Name: MD Vee Tran, 03/30/2021, 4:57 AM Attestation Statement I saw [...] with more than 50% of the total xwla-[id number]-wwem time of the visit in counseling/coordination of [...] Millie Bailey MD 90 mg at 03/28/21 0926 labetalol (NORMODYNE) tablet 200 mg 200 mg Oral 3 times per day Vee Mi DO 200 mg at 03/29/21 0534 xgrlkzdyef-qexbqjbcvbevq-kzrmlsk e (FIORICET, ESGIC) per tablet 1 tablet 1 [...] Maryam Bhandari MD 1 tablet at 03/28/21 0925 Assessment/Plan: Armando Rosario is a 35 y.o. [...] - 03/27 BPP/UAD cephalic, ADAMA 8.1, BPP 02/04, normal UAD Epilepsy - Lamictal 150mg BID - Last seizure 2014 Hx CD/DEsires permanent sterilization - RCD+BTL today at 1000 IUP @ 34w0d - Dating by 6w5d US - Cephalic on 03/29, posterior placenta - Monitoring:CEFM - Diet:NPO w/ IVF - BMZ x2 on 03/16-18 and rBMZ Further plan pending d/w attending. [...] malnutrition Estimated Daily Nutrient Needs: Energy (kcal): 7023-5939 (30-35); Weight Used for Energy Requirements: Branscomb Protein (g): 60-70 (1.2-1.4); Weight Used for Protein Requirements: Branscomb Fluid (ml/day): per MD Nutrition Related Findings: + bowel sounds; trace BUE edema; +1 BLE edema; Kavon 23 Wounds: None Current Nutrition Therapies: Primary Diet: Regular Anthropometric Measures: Height: 5' 2 (157.5 cm) Current Body Weight: 190 lb (86.2 kg) Admission Body Weight: 197 lb (89.4 kg) (no method indicated) Branscomb Body Weight: 110 lbs BMI: 34.7 Nutrition [...] Planning: Too soon to determine Contact: pager [phone] Images from the original note were not [...] Daily Millie Bailey MD 90 mg at 03/27/21 0923 labetalol (NORMODYNE) tablet 200 mg 200 mg Oral 3 times per day Vee Mi DO 200 mg at 03/27/21 2130 sqnyjszqdm-psdhoqujlibwb-lddkjnt e (FIORICET, ESGIC) per tablet 1 tablet 1 [...] Rosario is a 35 y.o. female 33w6d [facility] Procardia XL 90mg daily and labetalol 200mg TID - Bps normotensive to low mild range overnight - S/p magnesium sulfate for seizure ppx and BMZ - PreE labs negative 03/25, repeat pending today - rBMZ#2 today at 0800 FGR - 03/19 US EFW <10% with elevated UAD - 03/27 BPP/UAD cephalic, ADAMA 8.1, BPP 8/8, normal UAD Epilepsy - Continue home lamictal [...] with more than 50% of the total eejq-dx-pfwc time of the visit in counseling/coordination of [...] Millie Bailey MD 90 mg at 03/26/21 0823 labetalol (NORMODYNE) tablet 200 mg 200 mg Oral 3 times per day Vee Mi DO 200 mg at 03/27/21 0540 yernnpybok-fcvdvurvpfmpl-kuwhdbk e (FIORICET, ESGIC) per tablet 1 tablet 1 [...] Maryam Bhandari MD 1 tablet at 03/26/21 08 Assessment/Plan: Armando Rosario is a 35 y.o. [...] 03/16- Further plan pending d/w attending. Norman Duvall, DO 03/27/2021, 6:14 AM Associated attestation - [...] Millie Bailey MD 90 mg at 03/25/21 08 labetalol (NORMODYNE) tablet 200 mg 200 mg Oral 3 times per day Vee Mi, 200 mg at 03/25/212104 jezptkukxn-jippzctawcrhw-xlscztj e (FIORICET, ESGIC) per tablet 1 tablet 1 [...] most recently negative 03/25 FGR - 03/19 US EFW <10% with elevated UAD - ANFS: weekly BPP/UAD and q2 week growth US's - BPP today Epilepsy - Continue home lamictal 150mg BID - Well controlled, last seizure 2014 Hx CD/Desires permanent sterilization - RCD + BTL at 34w 03/29/21 @1000 IUP @ 33w4d - Dating by 6w5d [facility] on 03/19 - Monitoring:NSTbid - Diet:General - [...] delivery at 34 week. Candidate for rBMZ . I spent 15 minutes in the visit, with more than 50% of the total jvew-yv-sqas time of the visit in counseling/coordination of [...] day Vee Mi DO 200 mg at 03/25/21 0500 pjdvkjtjzq-rhefljbpzptjy-jdwfzqw e (FIORICET, ESGIC) per tablet 1 tablet 1 tablet Oral Q4H PRN Catalina Snow DO 1 tablet at 03/17/21 210 lamoTRIgine (LAMICTAL) tablet 150 mg 150 mg [...] labs this am wnl FGR - 03/19 EFW <10% with elevated UAD - ANFS: weekly BPP/UAD and q2 week growth US's Epilepsy - Continue home lamictal 150mg BID - Well controlled, last seizure 2014 Hx CD/Desires Permanent Sterilization - Plan for RCD + BTL at 34w unless indicated sooner IUP @ 33w3d - Dating by 6w5d - [facility] on 03/19 - Monitoring:NSTbid - [...] Millie Bailey MD 90 mg at 03/23/21 09 labetalol (NORMODYNE) tablet 200 mg 200 mg Oral 3 times per day Vee Mi DO 200 mg at 03/24/21 0531 asufikngge-bltkbrzcerduc-wqidnwh e (FIORICET, ESGIC) per tablet 1 tablet 1 [...] Maryam Bhandari MD 650 mg at 03/18/21 09 aspirin chewable tablet 81 mg 81 mg Oral Daily Maryam Bhandari MD 81 mg at 03/23/21 09 vitamin 27-1 MG tablet 1 tablet 1 tablet Oral Daily Maryam Bhandari MD 1 tablet at 03/23/21 09 Assessment/Plan: Armando Rosario is a 35 [...] EFW 1294g (<10%ile) with elevated UAD, BPP 8/8 at that time -Will continue with plan [...] 03/16- Further plan pending d/w attending. Rosemarie Villalta DO 03/24/2021, 6:46 AM Associated attestation - Luis [...] day Vee Mi DO 200 mg at 03/22/212135 hafqateedg-vuzqmryvkdeoz-jzfgvhj e (FIORICET, ESGIC) per tablet 1 tablet 1 tablet Oral Q4H PRN Catalina Snow DO 1 tablet at 03/17/212103 lamoTRIgine (LAMICTAL) tablet 150 mg 150 mg Oral BID Mayram Bhandari MD 150 mg at 03/22/212135 sodium chloride flush 0.9 % injection 10 [...] Maryam Bhandari MD 81 mg at 03/22/21 075 vitamin 27-1 MG tablet 1 tablet 1 tablet Oral Daily Maryam Bhandari MD 1 tablet at 03/22/21 075 Assessment/Plan: Armando Rosario is a 35 y.o. [...] @ 33w1d - Dating by 6w5d - Breech on [...] <10% and elevated UA dopplers, however BPP 02/04- Planned delivery at 34w or sooner if indicated. Patient reports she is tolerating her meals and has a good appetite. RD obtained bed scale weight of 180.9#. Malnutrition Assessment: Malnutrition Status: No malnutrition Estimated Daily Nutrient Needs: Energy (kcal): 3412-3138 (30-35); Weight Used for Energy Requirements: Branscomb Protein (g): 60-70 (1.2-1.4); Weight Used for Protein Requirements: Branscomb Fluid (ml/day): per MD Nutrition Related Findings: +bowel sounds; no edema noted; Kavon 23 Wounds: None Current Nutrition Therapies: Primary Diet: Regular Anthropometric Measures: Height: 5' 2 (157.5 cm) Current Body Weight: 280.9 lb Admission Body Weight: 197 lb (89.4 kg) (no method indicated) Branscomb Body Weight: 110 lbs Nutrition Interventions: Food [...] Discharge Planning: Continue current diet Contact: pager [phone] Images from the original note were not [...] day Vee Mi DO 200 mg at 03/22/21 0530 NIFEdipine (PROCARDIA XL) extended release tablet 90 mg 90 mg Oral Daily Joana Gilliam, DO 90 mg at 03/21/21916 acfkyjahof-brsqcnxjcnrhh-rfqxglg e (FIORICET, ESGIC) per tablet 1 tablet 1 [...] Daily Maryam Bhandari MD 81 mg at 03/21/21 0918 vitamin 27-1 MG tablet 1 tablet 1 tablet Oral Daily Maryam Bhandari MD 1 tablet at 03/21/21 09 Assessment/Plan: Armando Rosario is a 35 [...] 34 weeks or sooner if needed. Consider [facility] 03/27-. I spent 15 minutes in the visit, with more than 50% of the total lfxn-iv-proh time of the visit in counseling/coordination of [...] day Vee Mi, DO 200 mg at 03/21/21 06 NIFEdipine (PROCARDIA XL) extended release tablet 90 mg 90 mg Oral Daily Joana Dee Lammike, DO 90 mg at 03/20/21 09 xaqxonbpmy-rorcyheajxdde-emunnao e (FIORICET, ESGIC) per tablet 1 tablet 1 tablet Oral Q4H PRN Catalina Snow, DO 1 tablet at 03/17/212103 lamoTRIgine (LAMICTAL) tablet 150 mg 150 mg Oral BID Maryam Bhandari MD 150 mg at 03/20/21 221 sodium chloride flush 0.9 % injection 10 [...] with more than 50% of the total ptre-pj-wnco time of the visit in counseling/coordination of [...] 90 mg Oral Daily Joana Gilliam DO hshtooftlx-engkuyqvvqsvo-ussrbyo e (FIORICET, ESGIC) per tablet 1 tablet 1 [...] 130/87 Pulse: 68 64 65 72 Resp: 20 18 Temp: 98.8 F (37.1 C) 98.5 [...] Patient IUP @ 32/4 weeks transported from [place] for suspected superimposed preeclampsia in the setting [...] malnutrition Estimated Daily Nutrient Needs: Energy (kcal): 0137-4091 (30-35); Weight Used for Energy Requirements: Branscomb Protein (g): 60-70 (1.2-1.4); Weight Used for Protein Requirements: Branscomb Fluid (ml/day): per MD Nutrition Related Findings: +bowel sounds; +1 BLE pitting edema; Kavon 23; - I&O; BG 126 (s/p BMZ) Wounds: None Current Nutrition Therapies: Primary Diet: Regular Anthropometric Measures: Height: 5' 2 (157.5 cm) Current Body Weight: no current weight Admission Body Weight: 197 lb (89.4 kg) (no method indicated) Branscomb Body Weight: 110 lbs Nutrition Diagnosis: Increased [...] Discharge Planning: Continue current diet Contact: pager [phone] Images from the original note were not [...] Route Frequency Provider Last Rate Last Admin unuxbuewsa-cjwefmtbnrzxi-lijzqox e (FIORICET, ESGIC) per tablet 1 tablet 1 tablet Oral Q4H PRN Catalina Snow, DO 1 tablet at 03/17/212103 labetalol (NORMODYNE) [...] Daily Maryam Bhandari MD 81 mg at 03/18/21 0932 vitamin 27-1 MG tablet 1 tablet 1 tablet Oral Daily Maryam Bhandari MD 1 tablet at 03/18/21 0938 Assessment/Plan: Armando Rosario is a 35 y.o. [...] 03/16- Further plan pending d/w attending. Norman Duvall, 03/19/2021, 6:12 AM Attending Supervising Physician's Attestation [...] with more than 50% of the total ofwu-oj-olnw time of the visit in counseling/coordination of [...] BID Catalina Snow DO 10 mL at 03/18/21 0045 dynzufbfur-niuohxgimobfa-pykdrsb e (FIORICET, ESGIC) per tablet 1 tablet 1 [...] Provider Last Rate Last Admin magnesium sulfate (66354 mg/500mL infusion) 2,000 mg/hr IntraVENous Continuous Maryam [...] SIPEwSF vs uncontrolled cHTN - transfer from [place] for persistent severe range Bps, acutely treated [...] 03/16 Further plan pending d/w attending. Catalina Snow, 03/17/2021, 6:23 AM Associated attestation - Licha [...] documented in this encounter [facility] Work Phone: 03-29-2021 Hospital Discharg e Thor Galvez, - 03/29/2021 Images from the original note [...] as 8 weeks after delivery. Bleeding may filler picker and then decrease again around 7-10 days [...] have thoughts of harming yourself or your . If will not stop crying, contact another adult for help or place in their crib on their back and take a break. NEVER shake your infant. WOUND CARE For Vaginal Delivery: Shower daily, [...] avoid constipation you may take a mild rrqq-fnm-eqkiuxw stool softener (such as colace) as recommended [...] can increase risks of asthma and sudden infant syndrome. If you or someone around baby [...] positive or a Person Under Investigation (PUI) Afrgys-zr-syxbz transmission of COVID-19 during is unlikely, but after a baby is susceptible to iiovws-ah-jmkjkc spread. After your baby is born, your [...] clean your hands with an alcohol-based hand bar tacker that contains at least 60% alcohol. Clean your hands often Wash your hands often with soap and water for at least 20 seconds, especially after blowing your nose, coughing, or sneezing; going to the bathroom; and before eating or preparing food. If soap and water are not readily available, use an alcohol-based hand bar tacker with at least 60% alcohol, covering all [...] isolation precautions should be made on a hxte-aq-azmu basis, in consultation with healthcare providers and [...] respiratory tract signs and symptoms. Ways to [place] with Anxiety & Stress It is normal [...] an illness that was first found in [facility], in May 2019. It has since [...] seen in people before. This virus spreads rjvxgn-tp-zpxolp through droplets from coughing and sneezing. It [...] water aren't available, use an alcohol-based hand bar tacker. Call 911 anytime you think you may [...] of: September 29, 2019 Content Version: 12.4 [employer]. Care instructions adapted under license by your healthcare professional. If you have questions about a medical condition or this instruction, always ask your healthcare professional. [employer] disclaims any warranty or liability for your use of this information. General Recommendations for Routine Cleaning and Disinfection of Households Community members can practice routine cleaning of frequently touched surfaces (for example: tables, doorknobs, light switches, handles, desks, toilets, faucets, sinks) with household textile slitting machine operator and EPA-registered disinfectants that are appropriate for [...] appropriate. These supplies include tissues, paper towels, textile slitting machine operator and EPA-registered disinfectants (see list link at CDC website). - If a separate bathroom is [...] be used for other purposes. Consult the stem cutter's instructions for cleaning and disinfection products used. [...] used if appropriate for the surface. Follow stem cutter's instructions for application and proper ventilation. Check [...] o Products with EPA-approved emerging viral pathogens [facility] iconexternal icon are expected to be effective against COVID-19 based on data for harder to kill viruses. Follow the stem cutter's instructions for all cleaning and disinfection products (e.g., concentration, application method and contact time, etc.). Soft (porous) surfaces such as carpeted floor, rugs, and drapes Remove visible contamination if present and clean with appropriate textile slitting machine operator indicated for use on these surfaces. After cleaning: Launder items as appropriate in accordance with the stem cutter's instructions. If possible, launder items using the [...] items as appropriate in accordance with the stem cutter's instructions. If possible, launder items using the warmest appropriate water setting for the items and dry items completely. Dirty laundry from an ill person can be washed with other people's items. o Clean and disinfect clothes hampers according to guidance above for surfaces. If possible, consider placing a bagging salvager that is either disposable (can be thrown away) or can be laundered. CDC has a list of EPA approved cleaning products on their website - https://www.cdc.gov/coronavirus/ 2019-ncov/community/home/cleanin g-disinfection.html https://www.[employer].co m/Avykl-Jjhuvgjkjbi-Xklixgrg-Pro ducts-List.pdf documented in this encounter [facility] Work Phone: documented in this encounter [facility] Work Phone: Evaluation note* Diagnosis Injury of left hand, initial encounter- Primary [facility] Diagnosis Sore throat- Primary Acute pharyngitis URI, acute Acute upper respiratory infections of unspecified site [facility])* Diagnostic Procedure Only (Urgent) - Closed Specialty Diagnoses / Procedures Referred By Contac t Referred To Contact XR IMAGING Diagnoses Injury of left hand, initial encounter Procedures XR HAND GENERAL 3V PA/LAT/OBL LEFT RADEX HAND MINIMUM 3 VIEWS Darcie Roberts APRN.[facility] [address] [place] [address] Xr Imaging Referral ID Status Reason Start Date Expiration Date V isits Requested Visits Authorized [id number] Closed Auto-Generate d Referral 11/26/2022 12/26/2023 1 1 [facility] Summary Purpose Family History No Family History Records FoundNo Family History Records FoundNo Family History Records FoundNo Family History Records Found Advance Directives No Advanced Directives Records FoundLatest Code Status on File Code Status Date Activated Date Inactivated Comments Full Code 03/29/2021 4:19 PM Full Code 03/29/2021 7:12 AM 03/29/2021 4:18 PM Full Code 03/16/2021 8:44 PM 03/29/2021 7:12 AM Additional Source Comments INFORMATION SOURCE (unrecogn ized section and content) DATE CREATED AUTHOR AUTHOR'S ORGANIZ ATION 01/26/2020 [facility] ([place]) DATE CREATED AUTHOR AUTHOR'S ORGANIZ ATION 04/15/2021 [facility] DATE CREATED AUTHOR AUTHOR'S ORGANIZ ATION 08/13/2023 [facility] Reason for Visit (unrecogniz ed section and content) Reason Comments Hand Pain left x 2 days, swoll en Reason Comments Ear Pain right, sore throat a nd cough x 5 days Ordered Prescriptions (unrec ognized section and content) Scheduled Active and Recently Administ ered Medications (unrecognized section and content) Continuous Medication Order 03/30/2021 03/31/2021 04/01/2021 magnesium sulfate (55450 mg/500mL infusion) (CANCELED) 2,000 mg/hr (50 mL/hr), [...] 24 hours., 2050 (Given - Provider: Trina Hunter, HUDSON) 0953 (Given - Provider: Trina Moralez, HUDSON)1615 (Given - Provider: Trina Moralez, RN)2357 (Given - Provider: Van Moreno RN) 0830 [...] 3 TIMES DAILY PRN, Heartburn, Starting on Fri03/27/21 at 1612, Use as 1st line treatment [...] mg, IntraVENous, PRN, Opioid Reversal, Starting on Amairani 03/29/21 at 1157, PRN if respiratory rate is [...] mL, IntraVENous, PRN, Line Care, Starting on Amairani 03/29/21 at 1618, After every IV line use, [...] or prosecute any alcohol or drug abuse patient.[facility] HospitalIn the event this information is protected by the Federal Confidentiality of Alcohol and Drug Abuse Patient Records regulations: The Federal rules restrict any use of the information to criminally investigate or prosecute any alcohol or drug abuse patient.[facility] FOR RECORDS PERTAINING TO PATIENTS WHO [...] BE BASED ON THE PRIMARY CLINICAL RECORDS. [facility] CenterclickTRUE [facility]. provides no warranty or guarantee of the accuracy or completeness of information in this document.
[2023-09-13] MEDS: Ipratropium/Albuterol Sulfate 3 ML AMPUL.NEB INHALATION (14:52)
[2023-09-13 14:53] VITALS: PULSE 85; RESP 17
[2023-09-13 16:00] VITALS: BP 134/78; PULSE 89; RESP 16; TEMP 36.4; O2SAT 99
== END 2023-09-13 16:21 | disposition home or self-care (01) ==
PROVIDERS: Emergency Provider Emergency Medicine; Visit Provider Emergency Medicine
DX: U07.1 COVID-19 (principal); J06.9 Acute upper respiratory infection, unspecified
CPT/HCPCS: 71046; 87631; 94640; 99282